=== PATIENT | female | born 1955 | race Caucasian/White ===

== ENCOUNTER 2020-03-05 17:43 | Inpatient (IN) | payer MEDICARE ==
[2020-03-05 21:44] VITALS: BMI 25.4
[2020-03-05] MEDS ORDERED: traMADol HCl 50 MG TAB PO PRN (22:43)
[2020-03-06] MEDS: Piperacillin/Tazobactam 3.375 GM in Sodium Chloride 0.9% 100 ML IVPB SCH ×5 (00:07→23:13)
[2020-03-06] MEDS: Sodium Chloride 0.9% 1,000 ML IV SCH ×4 (00:08→22:31)
[2020-03-06 00:09] LABS: Anion Gap 21 mmol/L (10-20); BUN (Urea Nitrogen) 40 mg/dL (9.8-20.1); Calc. Creatinine Clearance 34 mL/min (70-130); Carbon Dioxide 13 mmol/L (23-31); Chloride 107 mmol/L (98-107); Estimated GFR-MDRD 29; Glucose 124 mg/dL (80-115); Potassium 5.9 mmol/L (3.5-5.1); Sodium 135 mmol/L (136-145)
--- NOTE | 2020-03-06 01:24 | HP ---
REASON FOR ADMISSION: Bladder spasm. HISTORY OF PRESENT ILLNESS: This is a 64-year-old female patient, who is known to have MS and has a suprapubic catheter. She presents to the emergency room reporting that there is change in color of her urine that became darker and has been experiencing spasms around her [place] with leakage around the [place]. She did report one episode of vomiting the night before her presentation. She denies fevers. Denies chills. She has been drinking a lot of water, but feels tired. In the ER, she was found to have acute renal insufficiency and high potassium level. She was sent to us for further evaluation and treatment. The patient is currently on telemetry, appears to be comfortable and in no acute distress. PAST MEDICAL HISTORY: 1. MS. 2. Suprapubic catheter inserted 16 years ago. 3. Frequent UTIs, usually gets treated with Levaquin, but thinks that Levaquin is not working anymore. 4. Chronic diarrhea status post recent colostomy insertion in November 05 at [facility]. 5. Cholecystectomy. 6. Hysterectomy. 7. High blood pressure. 8. Status post gastric banding. SOCIAL HISTORY: She does not smoke. Does not drink alcohol. ALLERGIES: TO CLINDAMYCIN AND ROCEPHIN THAT CAUSES HER ANGIOEDEMA. FAMILY HISTORY: Negative for heart disease. REVIEW OF SYSTEMS: All systems reviewed except the above mentioned, found to be negative. PHYSICAL EXAMINATION: GENERAL: She is awake, alert, oriented, does not appear in distress. VITAL SIGNS: Her blood pressure is 95/54, heart rate of 120, saturating 96% on room air, temperature is 97.3. HEENT: Head is nontraumatic, normocephalic. Pupils equal, reactive. Extraocular movements are intact. Nonicteric sclerae. Well injected conjunctivae. Oral mucosa normal. Nasal mucosa normal. NECK: Supple. No adenopathy. No murmur. Thyroid is not palpable. Trachea is midline. No supraclavicular lymphadenopathy. HEART: S1 and S2 regular. No murmur. No gallops. No friction rubs. No displacement of PMI. LUNGS: Clear to auscultation bilaterally. No wheezes, rhonchi, no crackles. Bowel sounds are positive. Nontender abdomen. Examination of the point of entry of the suprapubic catheter appears to be clean. No discharge. Her colostomy bag appears to be in place and the point of entry appears to be clean. No lower extremity edema. No cyanosis. NEURO: Cranial nerves appears to be intact. She moves her upper extremities, but she does not move her lower extremities due to her MS. LABORATORY DATA: Blood work shows WBC of 29, hemoglobin of 14, platelets of 559, neutrophil count 55%, bands 27%. Her sodium is 139, potassium 5.9, bicarb of 18, creatinine 1.78, alkaline phosphatase 298. CK 25. Urinalysis shows evidence of infection. ASSESSMENT AND PLAN: This is a 64-year-old female patient presenting with change in color of her urine. She does have suprapubic catheter. She does report spasm around her suprapubic catheter and some leakage of urine. ID: The patient does have urinary tract infection and she has sepsis. She had frequent urinary tract infections in the past. I suspect that she has some resistance to antibiotics. She did receive Levaquin and vancomycin at the emergency room, but she says that lately Cipro has not been working well for her and for that reason, I would start her on IV Zosyn for now until we get the results of her urine culture and sensitivity. Her blood pressure is on the low side. I suspect due to dehydration and her sepsis. We will start her on IV fluids and monitor. Renal system, electrolytes: The patient has acute renal insufficiency and hyperkalemia. She did receive IV fluids in the ER. We will continue with IV fluids here and will recheck her electrolytes tonight and adjust our management accordingly. We will also do a renal ultrasound in the morning. For deep venous thrombosis prophylaxis, she will be on heparin subcutaneously. I did discuss with her the code status and she wishes to be a do not resuscitate. Job ID: [id number]
[2020-03-06] MEDS ORDERED: Calcium Carbonate 500 MG ChewTAB PO SCH (03:15)
[2020-03-06 04:43] LABS: Lactic Acid 3.3 mmol/L (0.5-2.2)
[2020-03-06 04:52] LABS: Anion Gap 18 mmol/L (10-20); BUN (Urea Nitrogen) 44 mg/dL (9.8-20.1); Calc. Creatinine Clearance 35 mL/min (70-130); Calcium 7.2 mg/dL (7.8-10.44); Carbon Dioxide 12 mmol/L (23-31); Chloride 109 mmol/L (98-107); Estimated GFR-MDRD 30; Glucose 134 mg/dL (80-115); Potassium 5.1 mmol/L (3.5-5.1); Sodium 134 mmol/L (136-145)
[2020-03-06 04:55] LABS: Band 64 % (5-11); Hemoglobin 11.3 g/dL (12.0-16.0); Hypochromia SLIGHT = 6-15 cells (100X) (0-5/hpf); Lymphocytes 6 % (21-51); MDiff Complete? YES; Mean Corpuscular HGB CONC 31.2 g/dL (32.0-36.0); Mean Corpuscular Hemoglobin 27.7 pg (27.0-31.0); Mean Corpuscular Volume 88.6 fL (78.0-98.0); Mean Platelet Volume 7.1 fL (7.4-10.4); Metamyelocyte 6 % (0-0); Monocytes 6 % (0-10); Neutrophil 18 % (42-75); Platelet Count 463 thou/uL (130-400); Platelet Morphology Comment Appears Adequate; RBC Distribution Width 15.4 % (11.5-14.5); Red Blood Cell (RBC) Count 4.07 mill/uL (4.20-5.40); Reflex for Review?? YES; White Blood Cell (WBC) Count 23.5 thou/uL (4.8-10.8)
[2020-03-06] MEDS ORDERED: Sodium Chloride 0.9% 500 ML IV SCH ×2 (06:45→07:30)
[2020-03-06] MEDS ORDERED: Rizatriptan Benzoate 10 MG MLT TAB PO PRN (08:01)
[2020-03-06] MEDS: Heparin 5,000 UNITS/ML VIAL SC SCH ×3 (08:15→21:15)
[2020-03-06] MEDS: Cholecalciferol 1,000 UNITS (25 MCG) TAB PO SCH (08:15)
[2020-03-06] MEDS: Docusate 100 MG CAP PO SCH (08:15)
[2020-03-06] MEDS: Ferrous Sulfate 325 MG TAB PO SCH (08:15)
[2020-03-06] MEDS: Ondansetron PF 4 MG/2 ML Vial IVP PRN ×2 (08:15→13:02)
--- NOTE | 2020-03-06 08:15 | ULT ---
ULTRASOUND RETROPERITONEUM COMPLETE: (RENAL) DATE: 03/06/2020 1:55 AM HISTORY: 64-year-old female with renal insufficiency FINDINGS: Right kidney: 9.5 x 5 x 5 cm. Left kidney: 10.5 x 4.5 x 4.5 cm. No hydronephrosis bilaterally. Several bilateral renal cysts. Largest cyst on right is partially exophytic from mid pole measuring approximately 4.5 cm. Largest cyst on left is at mid pole approximately 2.5 cm. Multiple hyperechoic foci in bilateral kidneys in central portions several millimeters in size each p ossibly with shadowing. Renal parenchymal thinning bilaterally. [place] catheter within empty bladder. IMPRESSION: 1) no hydronephrosis. 2) probable bilateral nephrolithiasis. Recommend confirmation with noncontrast CT abdomen and pelvis. 3) bilateral renal cysts.
[2020-03-06] MEDS ORDERED: Non-Formulary Item 1 EACH (Iron [Iron] 18 MG) PO SCH (09:00)
[2020-03-06] MEDS ORDERED: Non-Formulary Item 1 EACH (Cholecalciferol (Vitamin D3) [Vitamin D] 5,000 UNIT) PO SCH (09:00)
[2020-03-06] MEDS ORDERED: Polyethylene Glycol 3350 17 GM Packet PO PRN (10:45)
--- NOTE | 2020-03-06 14:28 | PDOC.HOSPP ---
- Subjective Encounter Date: 03/06/20 Encounter Time: 08:00 Subjective: overnight, hypotensive, spasms mostly lower extremities. This morning, complains of persistent spasms. - Objective Vital Signs & Weight: Vital Signs (12 hours) Temp Pulse Resp BP Pulse Ox 03/06/20 12:07 98.3 F 113 H 18 90/57 L 96 03/06/20 08:00 97.6 F 114 H 18 95/62 93 L 03/06/20 04:28 115 H 18 101/53 L 96 03/06/20 03:50 117 H 98/54 L 03/06/20 03:17 97.5 F L 113 H 18 148/56 H 96 Weight Weight 148 lb 9 oz Result Diagrams: 03/06/20 04:16 03/06/20 04:15 Hospitalist ROS - Review of Systems Constitutional: denies: fever, chills, sweats Respiratory: denies: cough, dry, shortness of breath Cardiovascular: denies: chest pain, palpitations, orthopnea Gastrointestinal: denies: nausea, vomiting, abdominal pain, diarrhea Genitourinary: reports: other (dark urine) - Medication Medications: Active Medications Generic Name Dose Route Start Last Admin Trade Name Freq PRN Reason Stop Dose Admin Cholecalciferol 5,000 mcg 03/06/20 09:00 03/06/20 08:15 Vitamin D3 PO 5,000 mcg DAILY ANTONIO Administration Docusate Sodium 100 mg 03/06/20 09:00 03/06/20 08:15 Colace PO 100 mg DAILY ANTONIO Administration Ferrous Sulfate 325 mg 03/06/20 09:00 03/06/20 08:15 Feosol PO 325 mg DAILY ANTONIO Administration Heparin Sodium (Porcine) 5,000 units 03/06/20 09:00 03/06/20 08:15 Heparin SC 5,000 units TID ANTONIO Administration Hyoscyamine Sulfate 0.125 mg 03/05/20 22:42 03/06/20 13:02 Levsin PO 0.125 mg Q4H PRN Administration Bladder Spasms Sodium Chloride 1,000 mls @ 125 mls/hr 03/05/20 23:30 03/06/20 12:03 Normal Saline 0.9% IV 1,000 mls .Q8H ANTONIO Administration Piperacillin Sod/Tazobactam 100 mls @ 200 mls/hr 03/05/20 23:59 03/06/20 12: 00 Sod 3.375 gm/ Sodium Chloride IVPB 100 mls Q6HR ANTONIO Administration Ondansetron HCl 4 mg 03/06/20 08:01 03/06/20 13:02 Zofran IVP 4 mg Q6H PRN Administration Nausea/Vomiting Sodium Chloride 10 ml 03/06/20 09:00 03/06/20 08:16 Flush - Normal Saline IVF 10 ml Q12HR ANTONIO Administration - Exam General Appearance: awake alert General - other findings: having spasms in lower extremities during the encounter Neck: no JVD Heart: no murmur, no gallops, no rubs Heart - other findings: regular rhythm, tachycardic Gastrointestinal: soft, non-tender, non-distended, normal bowel sounds Gastrointestinal - other findings: colostomy bag appears functional and intact; suprapubic catheter in place Psychiatric: normal affect, normal behavior, A&O x 3 Hosp A/P - Plan #UTI -UA contaminated; patient claims only had darker urine -repeat UA -continue ABx #hypotension -per patient, has history of borderline blood pressure
[2020-03-06] MEDS ORDERED: Sodium Chloride 0.9% 1,000 ML IV SCH (14:30)
[2020-03-06 16:32] LABS: Bilirubin Negative (Negative); Blood, Urine Negative (Negative); Clarity Clear (Clear); Glucose, Urine (Dipstick) Normal (Negative); Ketone, Urine Negative (Negative); Leukocyte 500 Leu/uL (Negative); Nitrite Negative (Negative); Protein, Urine (Dipstick) 10 mg/dL (Neg-Trace); RBC/HPF 0-3 HPF (0-3); Specific Gravity, Urine 1.021 (1.002-1.036); Squamous Epithelial 0-3 HPF (0-3); Urobilinogen Normal mg/dL (Less than 2)
[2020-03-06 16:43] LABS: Bacteria/HPF Rare-Few HPF (None Seen)
[2020-03-06 16:44] LABS: Urine Culture Reflex Yes Yes
[2020-03-06] MEDS ORDERED: FINGOLIMOD HCL 0.5 MG PO SCH (21:00)
[2020-03-06] MEDS ORDERED: [UNRECOGNIZED DRUG - OTHER] PO SCH (21:00)
[2020-03-06] MEDS: DULoxetine 60 MG CAP PO SCH (21:10)
[2020-03-06] MEDS ORDERED: Lidocaine 2% Viscous Solution 10 ML, Aluminum & Magnesium Hydroxide 30 ML SSW SCH (22:00)
[2020-03-07 05:10] LABS: Band 29 % (5-11); Elliptocytes SLIGHT = 2-5 cells (100X) (0-1/hpf); Hemoglobin 10.6 g/dL (12.0-16.0); Hypochromia SLIGHT = 6-15 cells (100X) (0-5/hpf); Lymphocytes 6 % (21-51); MDiff Complete? YES; Mean Corpuscular HGB CONC 31.2 g/dL (32.0-36.0); Mean Corpuscular Hemoglobin 26.9 pg (27.0-31.0); Mean Corpuscular Volume 86.3 fL (78.0-98.0); Mean Platelet Volume 7.5 fL (7.4-10.4); Metamyelocyte 5 % (0-0); Monocytes 15 % (0-10); Neutrophil 45 % (42-75); Platelet Count 235 thou/uL (130-400); Platelet Morphology Comment Appears Adequate; RBC Distribution Width 15.3 % (11.5-14.5); Red Blood Cell (RBC) Count 3.95 mill/uL (4.20-5.40); Vacuoles MODERATE; White Blood Cell (WBC) Count 12.7 thou/uL (4.8-10.8)
[2020-03-07 05:17] LABS: Anion Gap 16 mmol/L (10-20); BUN (Urea Nitrogen) 42 mg/dL (9.8-20.1); Calc. Creatinine Clearance 44 mL/min (70-130); Carbon Dioxide 14 mmol/L (23-31); Chloride 113 mmol/L (98-107); Estimated GFR-MDRD 37; Glucose 100 mg/dL (80-115); Magnesium 1.9 mg/dL (1.6-2.6); Potassium 4.5 mmol/L (3.5-5.1); Sodium 138 mmol/L (136-145)
[2020-03-07] MEDS: Piperacillin/Tazobactam 3.375 GM in Sodium Chloride 0.9% 100 ML IVPB SCH ×4 (05:38→23:52)
[2020-03-07] MEDS ORDERED: Lidocaine 2% Viscous Solution 10 ML, Aluminum & Magnesium Hydroxide 30 ML SSW SCH (06:00)
[2020-03-07] MEDS: Heparin 5,000 UNITS/ML VIAL SC SCH ×3 (08:03→20:44)
[2020-03-07] MEDS: Cholecalciferol 1,000 UNITS (25 MCG) TAB PO SCH (08:03)
[2020-03-07] MEDS: Ferrous Sulfate 325 MG TAB PO SCH (08:03)
[2020-03-07] MEDS: Docusate 100 MG CAP PO SCH (08:03)
[2020-03-07] MEDS: Sodium Chloride 0.9% 1,000 ML IV SCH ×3 (09:34→23:53)
[2020-03-07] MEDS ORDERED: Aluminum & Magnesium Hydroxide 60 ML, Lidocaine 2% Viscous Solution 30 ML, diphenhydrAM... SSW PRN (10:21)
--- NOTE | 2020-03-07 17:01 | PDOC.HOSPP ---
- Subjective Encounter Date: 03/07/20 Encounter Time: 08:00 Subjective: overnight, 11 beats of MAT, asymptomatic. This morning, feeling better overall , suprapubic fullness resolved, and no cramping. SKYLER improving, Urine culture negative so far, may discharge after urine culture finalizes. - Objective Vital Signs & Weight: Vital Signs (12 hours) Temp Pulse Resp BP Pulse Ox 03/07/20 15:00 97.6 F 97 18 140/70 93 L 03/07/20 12:20 97.3 F L 94 18 135/71 95 03/07/20 08:00 97.6 F 102 H 18 139/77 93 L Weight Weight 156 lb 4.924 oz I&O: 03/06/20 03/07/20 03/08/20 06:59 06:59 06:59 Intake Total 1610 Output Total 550 Balance 1060 Result Diagrams: 03/07/20 04:47 03/07/20 04:47 Hospitalist ROS - Review of Systems Constitutional: denies: fever, chills Respiratory: denies: cough, dry, shortness of breath Cardiovascular: denies: chest pain, palpitations, orthopnea Gastrointestinal: denies: nausea, vomiting, abdominal pain - Medication Medications: Active Medications Generic Name Dose Route Start Last Admin Trade Name Freq PRN Reason Stop Dose Admin Cholecalciferol 5,000 mcg 03/06/20 09:00 03/07/20 08:03 Vitamin D3 PO 5,000 mcg DAILY ANTONIO Administration Docusate Sodium 100 mg 03/06/20 09:00 03/07/20 08:03 Colace PO 100 mg DAILY ANTONIO Administration Duloxetine HCl 120 mg 03/06/20 21:00 03/06/20 21:10 Cymbalta PO 120 mg HS ANTONIO Administration Ferrous Sulfate 325 mg 03/06/20 09:00 03/07/20 08:03 Feosol PO 325 mg DAILY ANTONIO Administration Heparin Sodium (Porcine) 5,000 units 03/06/20 09:00 03/07/20 15:01 Heparin SC 5,000 units TID ANTONIO Administration Hyoscyamine Sulfate 0.125 mg 03/05/20 22:42 03/06/20 13:02 Levsin PO 0.125 mg Q4H PRN Administration Bladder Spasms Sodium Chloride 1,000 mls @ 125 mls/hr 03/05/20 23:30 03/07/20 09:34 Normal Saline 0.9% IV 1,000 mls .Q8H ANTONIO Administration Piperacillin Sod/Tazobactam 100 mls @ 200 mls/hr 03/05/20 23:59 03/07/20 12: 23 Sod 3.375 gm/ Sodium Chloride IVPB 100 mls Q6HR ANTONIO Administration Ondansetron HCl 4 mg 03/06/20 08:01 03/06/20 13:02 Zofran IVP 4 mg Q6H PRN Administration Nausea/Vomiting Sodium Chloride 10 ml 03/06/20 09:00 03/07/20 09:35 Flush - Normal Saline IVF Not Given Q12HR ANTONIO Tramadol HCl 50 mg 03/05/20 22:43 03/06/20 14:32 Ultram PO 50 mg Q4H PRN Administration Pain - Exam General Appearance: NAD, awake alert Neck: no JVD Heart: RRR, no murmur, no gallops, no rubs Respiratory: CTAB, no wheezes Gastrointestinal: soft, non-tender, non-distended Psychiatric: normal affect, normal behavior, A&O x 3 Hosp A/P - Plan #uncomplicated UTI -first UA contaminated; repeat UA shows pyuria, UCx NTD -continue ABx pending culture finalization -main symptom for which patient came was dark urine; prior to DC, educate patient regarding proper fluid intake #likely SKYLER over CKD -improving; may be at baseline (not enough data) #hypotension -per patient, has history of borderline blood pressure -currently HD stable DNAR ELOS: 1 night
[2020-03-07] MEDS: DULoxetine 60 MG CAP PO SCH (20:44)
[2020-03-08 05:04] LABS: Anion Gap 13 mmol/L (10-20); BUN (Urea Nitrogen) 29 mg/dL (9.8-20.1); Calc. Creatinine Clearance 58 mL/min (70-130); Calcium 7.5 mg/dL (7.8-10.44); Carbon Dioxide 15 mmol/L (23-31); Chloride 116 mmol/L (98-107); Estimated GFR-MDRD 50; Glucose 90 mg/dL (80-115); Potassium 4.7 mmol/L (3.5-5.1); Sodium 139 mmol/L (136-145)
[2020-03-08] MEDS: Piperacillin/Tazobactam 3.375 GM in Sodium Chloride 0.9% 100 ML IVPB SCH ×3 (06:10→17:53)
[2020-03-08] MEDS ORDERED: Sodium Bicarbonate 150 MEQ in Dextrose 5% in Water 1,000 ML IV SCH (07:30)
[2020-03-08] MEDS: Docusate 100 MG CAP PO SCH (09:57)
[2020-03-08] MEDS: Cholecalciferol 1,000 UNITS (25 MCG) TAB PO SCH (09:58)
[2020-03-08] MEDS: Ferrous Sulfate 325 MG TAB PO SCH (09:59)
[2020-03-08] MEDS: Sodium Bicarbonate Tab 325 MG TAB PO SCH ×2 (09:59→21:05)
[2020-03-08] MEDS: Heparin 5,000 UNITS/ML VIAL SC SCH ×3 (09:59→21:07)
--- NOTE | 2020-03-08 10:59 | CT ---
CT ABDOMEN AND PELVIS WITHOUT IV CONTRAST: HISTORY: Renal cyst. Possible stones. Possible adult polycystic kidney disease. FINDINGS: Moderate bilateral pleural effusions and some right and left lower lobe compressive atelectatic leonard es posteriorly. Status post cholecystectomy. The liver appears unremarkable. The pancreas and spleen appear unremarkable. Probable small hiatal hernia. The adrenal glands are unremarkable. Small kidneys bilaterally without renal hydronephrosis. Two calcification foci in the right kidney, adjacent to on e of these cysts. These could conceivably represent renal calculi or could represent some calcificati on in the wall of the cyst. This cyst approximates 5.4 cm. No evidence for obstructing calculus. S everal left renal cysts. Distal left colon colostomy, just to the right of midline, near the level of the umbilicus. Mild nonspecific fat stranding around the left colon and in the left colonic gutter w ith possible associated colonic wall thickening. This is difficult to evaluate without IV or oral con trast. There is minimal free fluid in the pelvis. Suprapubic catheter in place. There are some scatte red calcific changes within the urinary bladder, either free within the bladder and representing calc ific debris or possibly within the wall of the bladder. Subcutaneous fat stranding, evidence for anas arca. No CT evidence for acute appendicitis. IMPRESSION: 1. Bilateral pleural effusions and bilateral compressive atelectatic changes. 2. Bilateral renal cysts. 3. Two calcific foci in the right kidney, adjacent to the right renal cyst, possibly representing non obstructing renal calculi versus some calcification within the wall. No evidence for liver or pancrea tic cysts. 4. Questionable mild left colon and sigmoid colon wall thickening with some minimal fat stranding, no nspecific, in the left pericolonic gutter region. This could conceivably represent some type of nonsp ecific colitis but is less than optimally imaged because of lack of intravenous and oral contrast. Mi nimal free intraperitoneal fluid within the pelvis. Some calcific foci within the urinary bladder or bladder wall. Other findings as above. POS: LUIS EDI
--- NOTE | 2020-03-08 13:59 | PDOC.HOSPP ---
- Subjective Encounter Date: 03/08/20 Encounter Time: 15:30 Subjective: Patient seen and examined for UTI. Feeling better. No new complaints. No overnight events - Objective Vital Signs & Weight: Vital Signs (12 hours) Temp Pulse Resp BP Pulse Ox 03/08/20 11:40 98.1 F 93 16 147/78 H 94 L 03/08/20 07:40 98.2 F 88 16 152/73 H 94 L 03/08/20 04:00 98.3 F 91 18 162/82 H 94 L Weight Weight 156 lb 4.924 oz I&O: 03/07/20 03/08/20 03/09/20 06:59 06:59 06:59 Intake Total 1610 3840 Output Total 550 1200 Balance 1060 2640 Result Diagrams: 03/09/20 04:16 03/09/20 04:16 Additional Labs: Laboratory Tests 03/08/20 11:10 25-OH Vitamin D Total 22.4 L EKG Reviewed by me: Yes (Tele SR) Hospitalist ROS - Review of Systems Respiratory: denies: cough, dry, shortness of breath, hemoptysis, SOB with excertion, pleuritic pain, sputum, wheezing, other Cardiovascular: denies: chest pain, palpitations, orthopnea, paroxysmal noc. dyspnea, edema, light headedness, other - Medication Medications: Active Medications Generic Name Dose Route Start Last Admin Trade Name Freq PRN Reason Stop Dose Admin Cholecalciferol 5,000 mcg 03/06/20 09:00 03/08/20 09:58 Vitamin D3 PO 5,000 units DAILY ANTONIO Administration Docusate Sodium 100 mg 03/06/20 09:00 03/08/20 09:57 Colace PO Not Given DAILY ANTONIO Duloxetine HCl 120 mg 03/06/20 21:00 03/07/20 20:44 Cymbalta PO 120 mg HS ANTONIO Administration Ferrous Sulfate 325 mg 03/06/20 09:00 03/08/20 09:59 Feosol PO 325 mg DAILY ANTONIO Administration Heparin Sodium (Porcine) 5,000 units 03/06/20 09:00 03/08/20 09:59 Heparin SC 5,000 units TID ANTONIO Administration Hyoscyamine Sulfate 0.125 mg 03/05/20 22:42 03/06/20 13:02 Levsin PO 0.125 mg Q4H PRN Administration Bladder Spasms Piperacillin Sod/Tazobactam 100 mls @ 200 mls/hr 03/05/20 23:59 03/08/20 11: 36 Sod 3.375 gm/ Sodium Chloride IVPB 100 mls Q6HR ANTONIO Administration Sodium Bicarbonate 150 meq/ 1,150 mls @ 100 mls/hr 03/08/20 07:30 03/08/20 09 :59 Dextrose/Water IV 03/08/20 18:59 1,150 mls ONE ANTONIO Administration Ondansetron HCl 4 mg 03/06/20 08:01 03/06/20 13:02 Zofran IVP 4 mg Q6H PRN Administration Nausea/Vomiting Sodium Bicarbonate 650 mg 03/08/20 09:00 03/08/20 09:59 Bicarbonate, Sodium PO 650 mg BID ANTONIO Administration Sodium Chloride 10 ml 03/06/20 09:00 03/08/20 09:59 Flush - Normal Saline IVF 10 ml Q12HR ANTONIO Administration Tramadol HCl 50 mg 03/05/20 22:43 03/06/20 14:32 Ultram PO 50 mg Q4H PRN Administration Pain - Exam General Appearance: NAD Heart: RRR, no gallops Respiratory: no wheezes, no ronchi Gastrointestinal: non-tender, non-distended, normal bowel sounds Extremities: no cyanosis Hosp A/P - Plan DVT proph w/SCDs Sepsis due to catheter associated UTI - POA Diarrhea - r/o infectious etiology SKYLER on CKD 3 h/o MS B/L Renal cyst Vit D def HTN Hyponatremia PLAN: Add stool w/u Cont IV Zosyn Urine cultures - negative Cont IVF with sodium bicarb AM labs Cont other meds as above
[2020-03-08] MEDS ORDERED: Ergocalciferol 1.25 MG(50,000 UNITS) CAP PO SCH (15:00)
--- NOTE | 2020-03-08 15:48 | CON ---
DATE OF CONSULTATION: 03/08/2020 SERVICE: Nephrology. REASON FOR CONSULTATION: Multiple renal cysts and acute kidney injury. REQUESTING PHYSICIAN: Kenneth Rojas MD. HISTORY OF PRESENT ILLNESS: A 64-year-old female with known history of MS associated with neurogenic bladder status post chronic suprapubic catheter with treat recurrent urinary tract infection, admitted on March 05, due to bladder spasm and change in color of urine associated with generalized weakness. The patient also was found to have acute kidney injury, which is improving with IV fluid therapy. The patient also was found to have sepsis, which was also thought to be due to urinary tract infection. Further evaluation with ultrasound showed multiple renal cysts, hence Nephrology consults. The patient denied fever, abdominal pain. She reports feeling better. PAST MEDICAL HISTORY: 1. Multiple sclerosis. 2. Neurogenic bladder. 3. Paraparesis. 4. Hypertension. PAST SURGICAL HISTORY: 1. Gastric banding. 2. Hysterectomy. 3. Cholecystectomy. 4. Colostomy creation. 5. Suprapubic catheter creation. FAMILY HISTORY: Negative for heart disease. SOCIAL HISTORY: The patient lives with spouse. Spouse is the primary caregiver. The patient is currently bed-bound. There is no history of smoking or alcohol use. ALLERGIES: CLINDAMYCIN AND ROCEPHIN. REPORTEDLY HAD ANGIOEDEMA. MEDICATIONS: Prior to hospital medications are as follows. 1. Ondansetron 4 mg p.o. q.6 hours p.r.n. 2. Cholecalciferol 5000 units p.o. daily. 3. Dulcolax 100 mg p.o. daily. 4. Cymbalta 120 mg p.o. daily at bedtime. 5. Fingolimod (Gilenya) 0.5 mg capsule daily at bedtime. 6. Hydroxyzine 25 mg p.o. t.i.d. 7. Ibuprofen 800 mg p.o. t.i.d. p.r.n. 8. Iron tablet p.o. daily. 9. Lisinopril 10 mg p.o. b.i.d. 10. Oxybutynin 5 mg p.o. daily. 11. Rizatriptan 10 mg p.o. b.i.d. p.r.n. REVIEW OF SYSTEMS: Twelve-point review of system performed was negative other than pertinent positives and negatives included in the history of present illness. PHYSICAL EXAMINATION: VITAL SIGNS: Temperature 98.2, pulse 88, respiratory rate 16, SpO2 of 94% on room air, blood pressure 152/73. I and O in the last 24 hours showed total intake of 3840 with total output of 1200. GENERAL: Comfortable female, in no obvious distress. Afebrile. Anicteric. Acyanotic. HEENT: Normocephalic, atraumatic. Oral mucosa is moist. CARDIOVASCULAR: Regular rhythm and rate with normal heart sounds 1 and 2. RESPIRATORY: Fair air entry bilaterally with few transmitted breath sounds, but no obvious crackle or rhonchi or use of accessory muscles. GI: Full, soft, nondistended. Bowel sound is hypoactive. Suprapubic catheter and right upper quadrant colostomy noted. EXTREMITIES: Mild atrophy of lower extremities noted. Otherwise, extremities looked grossly normal with no edema or erythema. SHEATHER: Conscious and alert and oriented x3 with appropriate mental status. Cranial nerves 2 through 12 are grossly intact. The patient moves upper extremities appropriately. Power is decreased in the lower extremities to 0 to 1-2/5. DIAGNOSTIC DATA: CBC on presentation on March 06 showed WBC count of 23.5, hemoglobin of 11.3, MCV of 88.6, platelet of 463. CBC yesterday showed WBC count of 12.7, hemoglobin of 10.6. Chemistry on presentation on March 05, showed sodium 135, potassium 5.9, chloride 107, CO2 of 13, BUN 40, creatinine 1.76, glucose 124, calcium 8.0. Chemistry earlier today showed sodium 139, potassium 4.7, chloride 116, CO2 of 15, BUN 29, creatinine 1.09, glucose 90, calcium 7.5. Urinalysis on March 06 showed yellow clear urine with pH of 5.0, specific gravity of 1.021, negative protein, ketone, blood, nitrite, bilirubin. Leukocyte esterase is positive. Microscopy showed 0 to 3 rbc and 7 to 10 wbc with rare few bacteria. Urine culture so far is no growth. Renal ultrasound performed on March 06 showed no hydronephrosis. Probable bilateral nephrolithiasis is noted as well as bilateral renal cysts. Right kidney measures 9.5 x 5 x 5, while left kidney measures 10.5 x 4.5 x 4.5. ASSESSMENT: 1. Metabolic acidosis: Initially, due to high anion gap related to sepsis from anion gap and hyperchloremic due to normal saline therapy. 2. Acute kidney injury, improved. Creatinine is closer to baseline. 3. Hyperkalemia: Resolved. 4. Bilateral renal cysts: Given the size of both kidneys and preserved renal function, this most likely is due to simple cysts. Adult polycystic kidney disease is a possibility. The patient denied family history of polycystic kidney disease. 5. Suspected nephrolithiasis. 6. Urinary tract infection on treatment. 7. Urogenic bladder status post suprapubic catheter with recurrent urinary tract infection. 8. Sepsis: Due to urinary tract infection. 9. Hypertension: Control is suboptimal. The patient had hypo hypotension on presentation, which has improved significantly. Currently, off antihypertensives. 10. Hypocalcemia: The patient is on vitamin D supplementation at home. 11. Anemia. PLAN: 1. We will substitute normal saline with sodium bicarbonate for metabolic acidosis. 2. We will also get vitamin D level with a view starting supplementation. 3. We will also get CT scan of the abdomen and pelvis without contrast for further evaluation of the kidney structure and size and to rule in or rule out nephrolithiasis. 4. We will recheck renal function in the morning. 5. Further treatment to follow depending on review of other diagnostic tests and hospital course. Many thanks for involving us in the care of this patient. We will follow along with you. Job ID: [id number]
[2020-03-08] MEDS: DULoxetine 60 MG CAP PO SCH (21:05)
[2020-03-08] MEDS: metroNIDAZOLE 500 MG in Premix Bag 1 BAG IVPB SCH (21:06)
[2020-03-08] MEDS: Saccharomyces boulardii 250 MG CAP PO SCH (21:06)
[2020-03-09] MEDS: Piperacillin/Tazobactam 3.375 GM in Sodium Chloride 0.9% 100 ML IVPB SCH ×5 (00:15→23:22)
[2020-03-09 05:26] LABS: ALT (SGPT) 10 U/L (8-55); AST (SGOT) 11 U/L (5-34); Albumin 2.3 g/dL (3.4-4.8); Alkaline Phosphatase 125 U/L (40-110); Anion Gap 9 mmol/L (10-20); BUN (Urea Nitrogen) 20 mg/dL (9.8-20.1); Bilirubin, Total 0.4 mg/dL (0.2-1.2); Calc. Creatinine Clearance 63 mL/min (70-130); Calcium 7.9 mg/dL (7.8-10.44); Carbon Dioxide 24 mmol/L (23-31); Chloride 112 mmol/L (98-107); Estimated GFR-MDRD 56; Globulin 2.6 g/dL (2.4-3.5); Glucose 103 mg/dL (80-115); Magnesium 1.8 mg/dL (1.6-2.6); Phosphorus 2.3 mg/dL (2.3-4.7); Potassium 3.5 mmol/L (3.5-5.1); Protein, Total 4.9 g/dL (6.0-8.3); Sodium 141 mmol/L (136-145)
[2020-03-09 05:39] LABS: Band 7 % (5-11); Eosinophils 6 % (0-10); Lymphocytes 24 % (21-51); MDiff Complete? YES; Mean Corpuscular Hemoglobin 27.3 pg (27.0-31.0); Mean Corpuscular Volume 85.3 fL (78.0-98.0); Mean Platelet Volume 7.2 fL (7.4-10.4); Metamyelocyte 1 % (0-0); Monocytes 4 % (0-10); Myelocyte 1 % (0-0); Neutrophil 57 % (42-75); Platelet Count 357 thou/uL (130-400); Platelet Morphology Comment Appears Adequate; RBC Distribution Width 15.2 % (11.5-14.5); Red Blood Cell (RBC) Count 3.67 mill/uL (4.20-5.40); White Blood Cell (WBC) Count 6.3 thou/uL (4.8-10.8)
[2020-03-09] MEDS: metroNIDAZOLE 500 MG in Premix Bag 1 BAG IVPB SCH ×3 (05:55→21:08)
[2020-03-09] MEDS: Calcium Carbonate 600 MG + Vit D TAB PO SCH (08:12)
[2020-03-09] MEDS: Heparin 5,000 UNITS/ML VIAL SC SCH ×3 (08:12→20:54)
[2020-03-09] MEDS: Sodium Bicarbonate Tab 325 MG TAB PO SCH ×2 (08:12→20:53)
[2020-03-09] MEDS: Saccharomyces boulardii 250 MG CAP PO SCH ×2 (08:12→20:53)
[2020-03-09] MEDS: Ferrous Sulfate 325 MG TAB PO SCH (08:12)
[2020-03-09] MEDS: Docusate 100 MG CAP PO SCH (08:12)
--- NOTE | 2020-03-09 15:50 | PRG ---
DATE OF SERVICE: 03/09/2020 SERVICE: Nephrology. SUBJECTIVE: female seen in followup for acute renal failure and multiple renal cysts. The patient complains of intermittent bladder spasm and urinary leak from the urethra despite having suprapubic catheter. Otherwise, reports feeling better. Denied fever, nausea, or vomiting. OBJECTIVE: VITAL SIGNS: Temperature 97.8, pulse 77, respiratory rate 14, SpO2 of 94% on room air, and blood pressure is 138/64. GENERAL: Comfortable female, in no obvious distress. Afebrile. Anicteric. HEENT: Normocephalic, atraumatic. CARDIOVASCULAR: Regular rhythm and rate with normal heart sounds 1 and 2. RESPIRATORY: Fair air entry bilaterally with no obvious crackle or rhonchi or use of accessory muscles. GI: Abdomen is full, soft, nondistended. Right upper quadrant colostomy as well as suprapubic catheter noted. MUSCULOSKELETAL: Grossly normal looking and atraumatic. No obvious edema appreciated. muscular wasting or atrophy of lower extremities noted. BUTCHER ALL ROUND: Conscious, alert, oriented x3 with appropriate mental status. Paraparesis noted with power of 2/5 to 3/5 on the right and 1 to 2 on the left lower extremity. DIAGNOSTIC DATA: CBC showed WBC count of 6.3, hemoglobin of 10.0, and platelets of 357. Chemistry showed sodium 141, potassium 3.5, chloride 112, CO2 of 24, BUN 20, creatinine 1.0, glucose 103, calcium 7.9, magnesium 1.8, phosphorus 2.3, total protein 4.9, and albumin 2.3. Vitamin D is 22.4. ASSESSMENT: 1. Acute kidney injury due to hemodynamic factors. Resolved. Creatinine is down to 1.0. 2. Metabolic acidosis. Improving with alkali therapy. 3. Bilateral multiple cysts: Most likely simple cyst related to age and recurrent infection/obstruction. Close followup was recommended. 4. Bilateral nephrolithiasis. With no obstruction. 5. Multiple sclerosis, on treatment. 6. Hypertension, control is adequate. PLAN: 1. We will discontinue alkali therapy. No further IV fluid therapy was needed with resolution of acute kidney injury. Avoid nephrotoxic agent including NSAIDs. 2. We will recommend close followup with repeat imaging of the bilateral renal cysts. Nephrology will sign off at this time with resolution of renal function. Job ID: [id number]
--- NOTE | 2020-03-09 18:21 | PDOC.HOSPP ---
- Subjective Encounter Date: 03/09/20 Encounter Time: 14:00 Subjective: Patient seen and examined for UTI. Diarrhea +No N/V/Abd pain. No new complaints. No overnight events - Objective Vital Signs & Weight: Vital Signs (12 hours) Temp Pulse Pulse Pulse Resp BP BP 03/09/20 15:00 97.9 F 77 14 03/09/20 11:30 98.5 F 71 14 03/09/20 10:32 75 73 142/76 H 143/71 H 03/09/20 10:16 77 75 138/64 142/76 H 03/09/20 07:30 97.8 F 75 14 BP Pulse Ox 03/09/20 15:00 155/78 H 93 L 03/09/20 11:30 167/79 H 95 03/09/20 10:32 03/09/20 10:16 03/09/20 07:30 136/65 94 L Weight Weight 156 lb 6.4 oz I&O: 03/08/20 03/09/20 03/10/20 06:59 06:59 06:59 Intake Total 3840 2426 Output Total 1200 2975 Balance 2640 -549 Result Diagrams: 03/09/20 04:16 03/09/20 04:16 EKG Reviewed by me: Yes (Tele SR) Hospitalist ROS - Review of Systems Respiratory: denies: cough, dry, shortness of breath, hemoptysis, SOB with excertion, pleuritic pain, sputum, wheezing, other Cardiovascular: denies: chest pain, palpitations, orthopnea, paroxysmal noc. dyspnea, edema, light headedness, other Gastrointestinal: denies: nausea, vomiting, abdominal pain, diarrhea, constipation, melena, hematochezia, other - Medication Medications: Active Medications Generic Name Dose Route Start Last Admin Trade Name Freq PRN Reason Stop Dose Admin Calcium/Vitamin D 1 tab 03/09/20 08:00 03/09/20 08:12 Caltrate 600 + Vit D PO 1 tab QAM-WM ANTONIO Administration Docusate Sodium 100 mg 03/06/20 09:00 03/09/20 08:12 Colace PO Not Given DAILY ANTONIO Duloxetine HCl 120 mg 03/06/20 21:00 03/08/20 21:05 Cymbalta PO 120 mg HS ANTONIO Administration Ergocalciferol 1.25 mg 03/08/20 15:00 03/08/20 16:45 Drisdol PO 1.25 mg Q7D ANTONIO Administration Ferrous Sulfate 325 mg 03/06/20 09:00 03/09/20 08:12 Feosol PO 325 mg DAILY ANTONIO Administration Heparin Sodium (Porcine) 5,000 units 03/06/20 09:00 03/09/20 14:55 Heparin SC 5,000 units TID ANTONIO Administration Hyoscyamine Sulfate 0.125 mg 03/05/20 22:42 03/06/20 13:02 Levsin PO 0.125 mg Q4H PRN Administration Bladder Spasms Piperacillin Sod/Tazobactam 100 mls @ 200 mls/hr 03/05/20 23:59 03/09/20 17: 45 Sod 3.375 gm/ Sodium Chloride IVPB 100 mls Q6HR ANTONIO Administration Metronidazole 500 mg/ Device 100 mls @ 100 mls/hr 03/08/20 22:00 03/09/20 14: 55 IVPB 100 mls Q8HR ANTONIO Administration Ondansetron HCl 4 mg 03/06/20 08:01 03/06/20 13:02 Zofran IVP 4 mg Q6H PRN Administration Nausea/Vomiting Saccharomyces Boulardii 250 mg 03/08/20 21:00 03/09/20 08:12 Florastor PO 250 mg BID ANTONIO Administration Sodium Bicarbonate 650 mg 03/08/20 09:00 03/09/20 08:12 Bicarbonate, Sodium PO 650 mg BID ANTONIO Administration Sodium Chloride 10 ml 03/06/20 09:00 03/09/20 08:13 Flush - Normal Saline IVF 10 ml Q12HR ANTONIO Administration Tramadol HCl 50 mg 03/05/20 22:43 03/06/20 14:32 Ultram PO 50 mg Q4H PRN Administration Pain - Exam General Appearance: NAD Neck: supple, no JVD Heart: no murmur, no gallops Respiratory: no wheezes, no ronchi Gastrointestinal: non-distended, normal bowel sounds, no guarding, no rigidity Gastrointestinal - other findings: liquid stool in colostomy Extremities: no cyanosis Hosp A/P - Plan elliott catheter, PT/OT, DVT proph w/heparin, DVT proph w/SCDs Sepsis due to catheter associated UTI Diarrhea of unclear etiology SKYLER on CKD 3 h/o MS B/L Renal cyst Vit D def HTN Hyponatremia Moderate PEM - POA PLAN: Stool w/u reviewed Cont IV Zosyn with Flagyl Consult GI due to persistent diarrhea Urine cultures - negative AM labs Cont other meds as above
--- NOTE | 2020-03-09 19:58 | CON ---
DATE OF CONSULTATION: 03/09/2020 CHIEF COMPLAINT: Diarrhea. HISTORY OF PRESENT ILLNESS: Ms. Maciel is a 64-year-old woman with multiple sclerosis who has had a suprapubic catheter for years and a more recent colostomy performed. She was admitted with urinary tract infection, sepsis and bladder spasms. She had been on Levaquin and vancomycin and had been on Cipro before that and at this hospital stay was started on IV Zosyn instead. She received IV fluids. She had acute renal injury with this as well. Over the last two days, which was already a couple of days into her hospitalization, she started having liquidy loose stools from her colostomy and having to empty her bag 3 or 4 times per day. Prior to that, her stools have been more formed. She has had no blood in the stool. No fever. No nausea or vomiting. She has had some mild pain in the suprapubic area, but no other abdominal pain. She underwent colostomy several months ago at [facility] to protect her skin as she has become incontinent with progression of her multiple sclerosis. Unfortunately, she had necrosis around the colostomy site and had to have it revised 3 days after the initial surgery and now she has also had again devitalized mucosa around her colostomy and her surgeon has recommended surgery again, but she has been wanting to avoid further surgery. GI was consulted due to the diarrhea. PAST MEDICAL HISTORY: Multiple sclerosis, frequent urinary tract infections, intermittent diarrhea since the colostomy was performed in October, hypertension. PAST SURGICAL HISTORY: Cholecystectomy, hysterectomy, gastric band, suprapubic catheter, colostomy and revision of the colostomy. FAMILY HISTORY: Negative for GI malignancy. SOCIAL HISTORY: No alcohol, tobacco, or drugs. ALLERGIES: ROCEPHIN AND CLINDAMYCIN. CURRENT INPATIENT MEDICATIONS: Include: 1. Docusate. 2. Duloxetine. 3. Ergocalciferol. 4. Ferrous sulfate. 5. Fingolimod. 6. Heparin subcutaneously. 7. Metronidazole. 8. Oxybutynin. 9. Zosyn. 10. Polyethylene glycol. 11. Rizatriptan. 12. Florastor. REVIEW OF SYSTEMS: Negative x10 systems reviewed except as stated in the history of present illness. PHYSICAL EXAMINATION: VITAL SIGNS: Temperature 97.9, pulse 77, blood pressure 155/78. GENERAL: She is in no acute distress. She is alert and oriented x3. Her eyes have no scleral icterus. Oropharynx is clear without lesions. No cervical or supraclavicular lymphadenopathy. LUNGS: Clear to auscultation bilaterally. HEART: Regular rate and rhythm without murmur. ABDOMEN: Soft, nontender, and nondistended. Bowel sounds are present. EXTREMITIES: No lower extremity edema. She has a colostomy in place in the right lower quadrant. A suprapubic catheter in place. She has liquidy green stool in her colostomy bag. The mucosa of the colon of the colostomy is not well visualized, but appears to be dark. Creatinine was 1.76 on presentation and is down to 1.0 today. Bilirubin 0.4, AST 11, ALT 10, and alkaline phosphatase 125. White blood cell count 6.3, hemoglobin 10, platelets 357. Her white blood cell count is down from 23.5 back on 03/06. IMAGING: CT scan of the abdomen and pelvis showed possible thickening in the left colon and sigmoid with some fat stranding. IMPRESSION: 1. Acute diarrhea. She has had liquidy green stools over the last couple of days. Most likely this is just secondary to the multiple antibiotics. She also came in with sepsis and acute renal failure, dehydration and hypotension and it is also possible that this is an acute ischemic colitis given the thickening in the left colon noted by CT. Ischemic colitis so often presents with bloody diarrhea and pain where as this is more of just diarrhea and mild suprapubic pain. Either way, the treatment is going to be supportive care with IV fluids and probiotics and ultimately limiting any unnecessary antibiotics and trying to complete the current course of antibiotics as soon as possible. She did test negative for Clostridium difficile and culture and had a negative rapid parasite screen. Her lactoferrin was positive. RECOMMENDATIONS: 1. IV fluids. 2. Taper antibiotics as soon as it is feasible. 3. Agree with probiotics. 4. I will sign off for now. 5. Please call, if GI can be of assistance. Job ID: [id number]
[2020-03-09] MEDS: DULoxetine 60 MG CAP PO SCH (20:53)
[2020-03-10] MEDS: Piperacillin/Tazobactam 3.375 GM in Sodium Chloride 0.9% 100 ML IVPB SCH ×3 (05:08→18:06)
[2020-03-10] MEDS: metroNIDAZOLE 500 MG in Premix Bag 1 BAG IVPB SCH ×2 (05:12→13:00)
[2020-03-10 06:49] LABS: Mean Corpuscular HGB CONC 31.9 g/dL (32.0-36.0); Mean Corpuscular Hemoglobin 27.2 pg (27.0-31.0); Mean Corpuscular Volume 85.2 fL (78.0-98.0); Mean Platelet Volume 6.9 fL (7.4-10.4); Platelet Count 327 thou/uL (130-400); Red Blood Cell (RBC) Count 3.68 mill/uL (4.20-5.40); White Blood Cell (WBC) Count 6.9 thou/uL (4.8-10.8)
[2020-03-10 07:16] LABS: ALT (SGPT) 7 U/L (8-55); AST (SGOT) 9 U/L (5-34); Albumin 2.2 g/dL (3.4-4.8); Alkaline Phosphatase 90 U/L (40-110); Anion Gap 11 mmol/L (10-20); BUN (Urea Nitrogen) 15 mg/dL (9.8-20.1); Bilirubin, Total 0.3 mg/dL (0.2-1.2); Calc. Creatinine Clearance 74 mL/min (70-130); Calcium 8.1 mg/dL (7.8-10.44); Carbon Dioxide 22 mmol/L (23-31); Chloride 111 mmol/L (98-107); Estimated GFR-MDRD 67; Globulin 2.2 g/dL (2.4-3.5); Glucose 79 mg/dL (80-115); Magnesium 1.5 mg/dL (1.6-2.6); Potassium 3.3 mmol/L (3.5-5.1); Protein, Total 4.4 g/dL (6.0-8.3); Sodium 141 mmol/L (136-145)
[2020-03-10 08:35] LABS: Band 11 % (5-11); Eosinophils 3 % (0-10); Lymphocytes 10 % (21-51); MDiff Complete? YES; Metamyelocyte 1 % (0-0); Monocytes 11 % (0-10); Myelocyte 1 % (0-0); Neutrophil 60 % (42-75); Platelet Morphology Comment Appears Adequate; Polychromasia SLIGHT = 2-3 cells (100X) (0-2/hpf); Reactive Lymphocytes 2 % (0-10)
[2020-03-10] MEDS: Sodium Bicarbonate Tab 325 MG TAB PO SCH ×2 (08:40→20:11)
[2020-03-10] MEDS: Ferrous Sulfate 325 MG TAB PO SCH (08:40)
[2020-03-10] MEDS: Saccharomyces boulardii 250 MG CAP PO SCH ×2 (08:40→20:10)
[2020-03-10] MEDS: Calcium Carbonate 600 MG + Vit D TAB PO SCH (08:40)
[2020-03-10] MEDS: Oxybutynin 5 MG TAB PO SCH (08:40)
[2020-03-10] MEDS: Heparin 5,000 UNITS/ML VIAL SC SCH ×3 (08:41→20:11)
[2020-03-10] MEDS ORDERED: Potassium Chloride 20 MEQ TAB PO SCH (11:30)
--- NOTE | 2020-03-10 11:41 | PDOC.HOSPP ---
- Subjective Encounter Date: 03/10/20 Encounter Time: 14:22 Subjective: Ms. Maciel is seen today for follow up of UTI and diarrhea. She reports some mild ongoing diarrhea, but this is improving. She also reports a small scrap on her left fourth and fifth toes. No complaints currently. Denies any fever, chills, nausea, vomiting, diaphoresis, chest pain, shortness of breath. She reports that she has been able to sit up on the bed with the help of PT, which is similar to her baseline mobility at home. - Objective Vital Signs & Weight: Vital Signs (12 hours) Temp Pulse Resp BP Pulse Ox 03/10/20 08:00 95 03/10/20 07:54 97.7 F 76 20 151/83 H 95 03/10/20 05:03 97.8 F 74 20 149/77 H 95 03/10/20 00:54 98.4 F 77 20 150/77 H 95 Weight Weight 156 lb 6.4 oz I&O: 03/09/20 03/10/20 03/11/20 06:59 06:59 06:59 Intake Total 2426 1320 Output Total 2974 3955 Balance -549 -397 Result Diagrams: 03/10/20 06:16 03/10/20 06:16 Additional Labs: Accuchecks 03/10/20 05:06 POC Glucose 84 Hospitalist ROS - Review of Systems Respiratory: denies: cough, dry, shortness of breath, hemoptysis, SOB with excertion, pleuritic pain, sputum, wheezing, other Cardiovascular: denies: chest pain, palpitations, orthopnea, paroxysmal noc. dyspnea, edema, light headedness, other Gastrointestinal: reports: diarrhea (mild and improving) - Medication Medications: Active Medications Generic Name Dose Route Start Last Admin Trade Name Freq PRN Reason Stop Dose Admin Calcium/Vitamin D 1 tab 03/09/20 08:00 03/10/20 08:40 Caltrate 600 + Vit D PO 1 tab QAM-WM ANTONIO Administration Duloxetine HCl 120 mg 03/06/20 21:00 03/09/20 20:53 Cymbalta PO 120 mg HS ANTONIO Administration Ergocalciferol 1.25 mg 03/08/20 15:00 03/08/20 16:45 Drisdol PO 1.25 mg Q7D ANTONIO Administration Ferrous Sulfate 325 mg 03/06/20 09:00 03/10/20 08:40 Feosol PO 325 mg DAILY ANTONIO Administration Heparin Sodium (Porcine) 5,000 units 03/06/20 09:00 03/10/20 08:41 Heparin SC 5,000 units TID ANTONIO Administration Hyoscyamine Sulfate 0.125 mg 03/05/20 22:42 03/06/20 13:02 Levsin PO 0.125 mg Q4H PRN Administration Bladder Spasms Piperacillin Sod/Tazobactam 100 mls @ 200 mls/hr 03/05/20 23:59 03/10/20 05: 08 Sod 3.375 gm/ Sodium Chloride IVPB 100 mls Q6HR ANTONIO Administration Metronidazole 500 mg/ Device 100 mls @ 100 mls/hr 03/08/20 22:00 03/10/20 05: 12 IVPB 100 mls Q8HR ANTONIO Administration Ondansetron HCl 4 mg 03/06/20 08:01 03/06/20 13:02 Zofran IVP 4 mg Q6H PRN Administration Nausea/Vomiting Oxybutynin Chloride 5 mg 03/10/20 09:00 03/10/20 08:40 Ditropan PO 5 mg DAILY ANTONIO Administration Saccharomyces Boulardii 250 mg 03/08/20 21:00 03/10/20 08:40 Florastor PO 250 mg BID ANTONIO Administration Sodium Bicarbonate 650 mg 03/08/20 09:00 03/10/20 08:40 Bicarbonate, Sodium PO 650 mg BID ANTONIO Administration Sodium Chloride 10 ml 03/06/20 09:00 03/10/20 08:44 Flush - Normal Saline IVF 10 ml Q12HR ANTONIO Administration Tramadol HCl 50 mg 03/05/20 22:43 03/06/20 14:32 Ultram PO 50 mg Q4H PRN Administration Pain - Exam General Appearance: NAD, awake alert Heart: RRR, no murmur, no gallops, no rubs Respiratory: CTAB Gastrointestinal: soft, non-tender, normal bowel sounds Extremities: no cyanosis, no edema Extremities - other findings: scabbed wound over the left 4th and 5th toes Psychiatric: A&O x 3 Hosp A/P - Plan Sepsis due to catheter associated UTI Diarrhea- Per GI, felt to be due to her antibiotics. C-dif negative. Stool parasite screen negative. SKYLER on CKD 3 h/o MS B/L Renal cyst Vit D def HTN Hyponatremia Hypomagnesemia Hypophosphatemia Moderate PEM - POA PLAN: Stool w/u reviewed Cont IV Zosyn Replace Mag and Phos Will need 7 days of IV Ertapenem - Pt is allergic to Ceftriaxone SNF eval DC Flagyl AM labs Cont other meds as above
[2020-03-10] MEDS ORDERED: Magnesium Sulfate 4 GM in Sodium Chloride 0.9% 250 ML 250 ML IVPB SCH (12:30)
[2020-03-10] MEDS: Potassium Chloride 20 MEQ TAB PO SCH (18:06)
[2020-03-10] MEDS: DULoxetine 60 MG CAP PO SCH (20:10)
[2020-03-11] MEDS: Piperacillin/Tazobactam 3.375 GM in Sodium Chloride 0.9% 100 ML IVPB SCH ×3 (00:15→11:14)
[2020-03-11 06:02] LABS: Albumin 2.2 g/dL (3.4-4.8); Anion Gap 11 mmol/L (10-20); BUN (Urea Nitrogen) 12 mg/dL (9.8-20.1); BUN/Creatinine Ratio 13.19; Calc. Creatinine Clearance 69 mL/min (70-130); Calcium 8.3 mg/dL (7.8-10.44); Carbon Dioxide 24 mmol/L (23-31); Chloride 109 mmol/L (98-107); Estimated GFR-MDRD 62; Glucose 97 mg/dL (80-115); Magnesium 1.9 mg/dL (1.6-2.6); Phosphorus 3.4 mg/dL (2.3-4.7); Potassium 3.7 mmol/L (3.5-5.1); Sodium 140 mmol/L (136-145)
[2020-03-11] MEDS: Saccharomyces boulardii 250 MG CAP PO SCH (08:14)
[2020-03-11] MEDS: Oxybutynin 5 MG TAB PO SCH (08:14)
[2020-03-11] MEDS: Calcium Carbonate 600 MG + Vit D TAB PO SCH (08:14)
[2020-03-11] MEDS: Potassium Chloride 20 MEQ TAB PO SCH (08:15)
[2020-03-11] MEDS: Ferrous Sulfate 325 MG TAB PO SCH (08:16)
[2020-03-11] MEDS: Heparin 5,000 UNITS/ML VIAL SC SCH ×2 (08:16→14:26)
[2020-03-11] MEDS: Sodium Bicarbonate Tab 325 MG TAB PO SCH (08:23)
[2020-03-11 16:24] VITALS: BP 154/78; TEMP 98
--- NOTE | 2020-03-12 08:41 | DIS ---
DATE OF ADMISSION: 03/05/2020 DATE OF DISCHARGE: 03/11/2020 DISCHARGE DISPOSITION: [facility] facility. FOLLOWUP: Follow up with primary care physician in 1 week. CODE STATUS: Do not resuscitate. ALLERGIES: THE PATIENT IS ALLERGIC TO CEFTRIAXONE AND CLINDAMYCIN. DISCHARGE MEDICATIONS: 1. Invanz 1 g daily for the next 7 days. 2. Oxybutynin 5 mg b.i.d. 3. Calcium carbonate one tablet b.i.d. 4. Ergocalciferol 1.25 mg every 7 days. 5. Levsin 0.15 mg as needed. 6. All other home medications were left unchanged. The patient was seen and examined on the day of discharge. Denies any new complaints. No chest pain, shortness of breath, or palpitations reported. Her diarrhea has significantly improved. BRIEF HOSPITAL COURSE: The patient is a 64-year-old female with multiple sclerosis with chronic urinary retention status post suprapubic catheter, presented to the hospital with generalized weakness along with bladder spasms. Her workup was consistent with sepsis secondary to catheter-associated UTI. Her WBC count on admission was 23.5 with 64% bandemia. Her urine culture was positive for Providencia sensitive to ceftriaxone and Zosyn. She was placed on Zosyn in the hospital. I discussed with Infectious Disease, who recommended one more week of IV antibiotic. For this reason, she was [facility] to [facility] facility. The patient started developing diarrhea after antibiotics. Please note, that patient has a history of colostomy. She was evaluated by Gastroenterology Service, Dr. Orona. A stool workup was essentially negative except for stool lactoferrin positive. Her diarrhea was felt to be secondary to antibiotics. The patient was also evaluated by college tutor due to acute kidney injury with creatinine of 1.95 on admission that improved to 0.91. Renal ultrasound showed bilateral renal cyst. The patient was advised to follow up with Nephrology as outpatient. She also had some calcific foci in the right kidney representing a nonobstructing renal calculi versus some . FINAL DIAGNOSES: 1. Sepsis due to catheter-associated urinary tract infection. 2. Antibiotic-associated diarrhea. Clostridium difficile was ruled out. 3. Acute kidney injury on chronic kidney disease stage 3, resolved. 4. History of colostomy. 5. History of suprapubic catheter. 6. Bilateral renal cyst. 7. Questionable renal calculi. 8. Vitamin D deficiency. 9. Hypertension. 10. Hyponatremia. 11. Hypomagnesemia. 12. Hypophosphatemia. 13. Moderate protein energy malnutrition. Time coordinating the discharge of this patient was 37 minutes. Job ID: [id number]
== END 2020-03-11 14:49 | disposition swing bed (61) | DRG 698 ==
LOC: 2NO 19:14 → T4-A 03-09 20:21
PROVIDERS: ADMIT Internal Medicine; ATTEND Internal Medicine
DX: T83.518A Infection and inflammatory reaction due to other urinary catheter, initial encounter (principal); A41.9 Sepsis, unspecified organism; E44.0 Moderate protein-calorie malnutrition; E87.1 Hypo-osmolality and hyponatremia; G82.20 Paraplegia, unspecified; E87.2 Acidosis; N17.9 Acute kidney failure, unspecified; N28.1 Cyst of kidney, acquired; Z66 Do not resuscitate; N18.3 Chronic kidney disease, stage 3 (moderate); I12.9 Hypertensive chronic kidney disease with stage 1 through stage 4 chronic kidney disease, or unspecified chronic kidney disease; E83.42 Hypomagnesemia; E83.39 Other disorders of phosphorus metabolism; K52.9 Noninfective gastroenteritis and colitis, unspecified; E87.5 Hyperkalemia; N31.9 Neuromuscular dysfunction of bladder, unspecified; D63.1 Anemia in chronic kidney disease; G35 Multiple sclerosis; E83.51 Hypocalcemia; E87.8 Other disorders of electrolyte and fluid balance, not elsewhere classified; Z68.28 Body mass index [BMI] 28.0-28.9, adult; Z88.1 Allergy status to other antibiotic agents; Z98.84 Bariatric surgery status; Z93.3 Colostomy status; Y84.6 Urinary catheterization as the cause of abnormal reaction of the patient, or of later complication, without mention of misadventure at the time of the procedure; Z79.899 Other long term (current) drug therapy
CPT/HCPCS: 36415; 36416; 74176; 76770; 80048; 80053; 80069; 81001; 82306; 83605; 83630; 83735; 84100; 85025; 85060; 87045; 87046; 87086; 87324; 87328; 87329; 87427; 87449; J1644; J2405; J2543; J3475; J3490; J7050; J7070; Q0163

== ENCOUNTER 2020-05-26 18:46 | Inpatient (IN) | payer MEDICARE ==
[2020-05-26] MEDS ORDERED: Morphine 4 MG/ML VIAL SLOW IVP PRN (23:06)
[2020-05-26] MEDS ORDERED: Ondansetron ODT 4 MG TAB SL PRN (23:15)
[2020-05-26] MEDS ORDERED: D5 1/2 NS w/20 mEq KCL 1,000 ML IV SCH (23:15)
[2020-05-26] MEDS ORDERED: Ondansetron PF 4 MG/2 ML Vial IVP PRN (23:15)
[2020-05-26] MEDS ORDERED: Acetaminophen 325 MG TAB PO PRN (23:15)
[2020-05-27] MEDS ORDERED: Prevnar 13-Val Conj/PF 0.5 ML SYRINGE IM ONE (09:00)
[2020-05-27] MEDS ORDERED: PROPOFOL 200 MG/20 ML VIAL ONE (11:03)
[2020-05-27] MEDS ORDERED: Ondansetron PF 4 MG/2 ML Vial ONE ×2 (11:03→20:01)
[2020-05-27] MEDS ORDERED: Lidocaine 1% PF 5 ML VIAL ONE (11:03)
[2020-05-27 13:15] LABS: SARS-CoV-2 MS2 Positive; SARS-CoV-2 N Gene Negative; SARS-CoV-2 S Gene Negative; SARS-CoV-2 by NAA Not Detected (NotDetected); SARS-CoV-2 orf1ab Negative
[2020-05-27 13:37] VITALS: BMI 22.8
[2020-05-27] MEDS ORDERED: Acetaminophen 325 MG TAB PO PRN (14:24)
[2020-05-27] MEDS ORDERED: Ondansetron PF 4 MG/2 ML Vial IVP PRN ×2 (14:25→14:33)
[2020-05-27] MEDS ORDERED: Morphine 4 MG/ML VIAL SLOW IVP PRN ×2 (14:25→14:33)
[2020-05-27] MEDS ORDERED: Ondansetron ODT 4 MG TAB SL PRN (14:25)
[2020-05-27] MEDS ORDERED: hydrOXYzine 25 MG TAB PO PRN (14:31)
[2020-05-27] MEDS: D5 1/2 NS w/20 mEq KCL 1,000 ML IV SCH (14:32)
[2020-05-27] MEDS ORDERED: Morphine 2 MG/ML VIAL SLOW IVP PRN (14:33)
[2020-05-27] MEDS ORDERED: hydrALAZINE 20 MG/ML VIAL SLOW IVP PRN (14:33)
[2020-05-27] MEDS ORDERED: Lorazepam 2 MG/ML VIAL SLOW IVP PRN ×2 (14:33)
[2020-05-27] MEDS ORDERED: Ondansetron ODT 4 MG TAB PO PRN (14:33)
[2020-05-27] MEDS ORDERED: SUMAtriptan Succinate 50 MG TAB PO PRN (14:44)
[2020-05-27] MEDS ORDERED: metroNIDAZOLE 500 MG in Premix Bag 1 BAG IVPB SCH (14:45)
--- NOTE | 2020-05-27 14:59 | HP ---
HISTORY OF PRESENT ILLNESS: Lui Maciel is a 64-year-old female with multiple sclerosis. She has been nonambulatory for 20 years. She is mostly in a wheelchair. She lives with her . Her helps her with transfers. She had on December 06, 2019, colostomy, robot, performed at [facility] by Dr. Maravilla. Two days later, she had necrosis of the colostomy site and had to have it revised. She has suffered stenosis progressive resulting in constipation. Dr. Maravilla has talked to her about revision, but she does not want to go at [facility]. She presented to our emergency room with abdominal pain and constipation, lack of colostomy output. CAT scan reveals colostomy outlet obstruction. Her colostomy is in the right upper quadrant placed here because it was felt that she can manage it better here. She has retraction of the skin due to the scarring and cicatrix. Plan is revision of her colostomy working on the surface. Plan laparoscopic assisted laparotomy is indicated to resolve this problem. She is happy where her colostomy is at this time. ALLERGIES: CEFTRIAXONE, CLINDAMYCIN, STATINS. TOBACCO, NONE. ALCOHOL, NONE. HOME MEDICATIONS: 1. Ibuprofen. 2. Lisinopril 10 mg b.i.d. 3. Calcium. 4. Iron. 5. Cholecalciferol. 6. Gilenya 0.5 mg p.o. at bedtime. 7. Cymbalta 120 mg at bedtime. 8. Rizatriptan 10 mg p.o. b.i.d. p.r.n. 9. Ditropan 5 mg b.i.d. 10. Zofran p.r.n. PAST SURGICAL HISTORY: Laparoscopic cholecystectomy; laparoscopic adjustable band in 1978 in [place], 200 pounds preoperatively, 134 pounds currently, successful weight loss maintained without band adjustments postoperatively at all. Robot colostomy on December 06, 2019, revision on December 08, 2019, multiple admissions for colostomy related problems. PAST MEDICAL HISTORY: Multiple sclerosis, hypertension, nonambulatory as noted above. REVIEW OF SYSTEMS: Ten-point noncontributory. No cardiac symptomatology. No cardiac evaluation required in the past. No symptoms of cardiac problems. The patient is up to date on her colonoscopies. FAMILY HISTORY: Unremarkable. PHYSICAL EXAMINATION: VITAL SIGNS: Height 5 feet 4 inches, 133 pounds, 22 BMI. Temperature 98.4, pulse 89, respiratory rate 16, blood pressure 139/88. HEAD, EARS, EYES, NOSE AND THROAT: Unremarkable. LUNGS: Clear to auscultation. CARDIAC: Regular rate and rhythm without murmur or gallop. ABDOMEN: Soft, mildly tender, colostomy in right upper quadrant without an appliance. There is no drainage. There is a very tight stenosis. I cannot even place a finger through. There is retraction of the skin in the area due to this cicatrix. There is no evidence of infection. Suprapubic tube in place. EXTREMITIES: Distortion secondary to 20 years of nonambulatory ability. LABORATORY DATA: COVID negative. White count 9 and hemoglobin 11.9. Basic metabolic profile normal. Urinalysis reveals nitrate positive, rare bacteria. ASSESSMENT AND PLAN: 1. Dysfunctional colostomy, right upper quadrant. Plan revision as described above. She understands risks and benefits and consents. 2. Multiple sclerosis. 3. Hypertension. Job ID: [id number]
[2020-05-27] MEDS: Lactated Ringer's 1,000 ML IV SCH (16:01)
[2020-05-27] MEDS ORDERED: Levofloxacin 500 mg/D5W 100 ml Premix Bag ONE (17:40)
[2020-05-27] MEDS ORDERED: metroNIDAZOLE 500 MG/100 ML BAG ONE (17:40)
[2020-05-27] MEDS ORDERED: Bupivacaine HCl 0.5%/Epinephrine 1:200,000/PF 30 ml Vial ONE (17:56)
[2020-05-27] MEDS ORDERED: Fentanyl 100 MCG/2 ML VIAL ONE ×2 (18:02→20:04)
[2020-05-27] MEDS ORDERED: Phenylephrine 10 MG/ML VIAL ONE (18:25)
[2020-05-27] MEDS ORDERED: traMADol HCl 50 MG TAB PO PRN (19:49)
[2020-05-27] MEDS ORDERED: Promethazine HCl 25 MG/ML VIAL IM PRN (19:57)
[2020-05-27] MEDS ORDERED: Ondansetron HCl/PF 4 MG/2 ML Vial IVP PRN (19:57)
[2020-05-27] MEDS ORDERED: Promethazine HCl 25 MG/ML VIAL SLOW IVP PRN (19:57)
[2020-05-27] MEDS ORDERED: Famotidine/PF 20 mg/2ml Vial SLOW IVP SCH (21:00)
[2020-05-27] MEDS ORDERED: Fingolimod Hcl [Gilenya] 0.5 MG Capsule PO SCH (21:00)
[2020-05-27] MEDS: traMADol HCl 50 MG TAB PO PRN (21:05)
[2020-05-27] MEDS: Oxybutynin 5 MG TAB PO SCH (21:06)
[2020-05-27] MEDS: DULoxetine 60 MG CAP PO SCH (21:06)
[2020-05-27] MEDS: Polyethylene Glycol 3350 17 GM Packet PO SCH (21:06)
[2020-05-27] MEDS: Lisinopril 10 MG TAB PO SCH (21:07)
[2020-05-27] MEDS: Enoxaparin Sodium 40 MG/0.4 ML SYRINGE SC SCH (21:07)
[2020-05-27] MEDS: Ketorolac Tromethamine 30 MG/ML VIAL IVP SCH (23:48)
--- NOTE | 2020-05-28 00:29 | OP ---
DATE OF PROCEDURE: 05/27/2020 PREOPERATIVE DIAGNOSES: MS, diverting sigmoid colostomy, right upper quadrant with severe stenosis 2 to 3 mm opening with severe constipation and pain. POSTOPERATIVE DIAGNOSES: MS, diverting sigmoid colostomy, right upper quadrant with severe stenosis 2 to 3 mm opening with severe constipation and pain. PROCEDURE: Revision of right upper quadrant colostomy with laparotomy, lysis of adhesions, sigmoid colon resection, colostomy formation. ANESTHESIA: General. ESTIMATED BLOOD LOSS: Less than 100 mL. DESCRIPTION OF PROCEDURE: Patient was taken to the operating room, where under general anesthesia, abdomen was prepared with ChloraPrep and draped in routine fashion. Patient had an opening in the right upper quadrant, it was about to 3 mm in diameter. She had retracted from ischemic colostomy. Incision was made circumferentially in the skin down to the skin, subcutaneous tissue down to the fascia, resecting the colon from the fascia, enlarging the fascial opening. I then visually was able to mobilize adhesions from the upper abdomen and left upper and right lateral abdomen, but there is severe scarring in the midline. This required midline laparotomy made from just above to below the umbilicus, carried out skin and subcutaneous tissue, fascia, and abdominal cavity sharply. There was severe inflammatory process involving the omentum around the sigmoid colon, probably due to chronic ischemia and scarring. This was carefully taken down, freed. I then was able to identify the colon and bring the old colostomy into the abdominal wound. I then fired a stapler TJ 2 load blue load to divide the colon at a healthy level. The colon had adequate length to revise the colostomy with a new segment that was healthy. LigaSure was used to divide the omentum where necessary to enable this process. Healthy colon brought through the new ostomy site. It had been adequately enlarged to accommodate the colon to prevent ischemia. The colon was very healthy. The colon segment resected about 6 inches, submitted to Pathology. Sponge, needle, and instrument counts were correct and good hemostasis noted. Midline fascia closed with continuous suture of #1 PDS. Skin and subcutaneous tissues irrigated. Skin loosely approximated with dahlia and KARAN incisional wound suction device applied over the staple line. Colostomy maturation undertaken by excising the staple line and four Kp sutures of 3-0 Vicryl placed and simple suture 3-0 Vicryl completed colostomy maturation and colostomy appliance secured. Patient tolerated the procedure well. There was good healthy colostomy completed. Job ID: [id number]
[2020-05-28] MEDS: Lactated Ringer's 1,000 ML IV SCH ×3 (01:20→08:05)
[2020-05-28] MEDS: D5 1/2 NS w/20 mEq KCL 1,000 ML IV SCH (01:20)
[2020-05-28] MEDS ORDERED: Lactated Ringer's 1,000 ML IV SCH (04:00)
[2020-05-28 04:52] LABS: Hemoglobin 10.8 g/dL (12.0-16.0); Platelet Count 562 thou/uL (130-400)
[2020-05-28 04:56] LABS: Anion Gap 14 mmol/L (10-20); BUN (Urea Nitrogen) 19 mg/dL (9.8-20.1); Calc. Creatinine Clearance 42 mL/min (70-130); Calcium 8.2 mg/dL (7.8-10.44); Carbon Dioxide 20 mmol/L (23-31); Chloride 107 mmol/L (98-107); Estimated GFR-MDRD 42; Glucose 158 mg/dL (80-115); Potassium 5.6 mmol/L (3.5-5.1); Sodium 135 mmol/L (136-145)
[2020-05-28 05:37] LABS: Band 27 % (5-11); Hemoglobin 10.7 g/dL (12.0-16.0); Lymphocytes 1 % (21-51); MDiff Complete? YES; Mean Corpuscular HGB CONC 31.1 g/dL (32.0-36.0); Mean Corpuscular Hemoglobin 28.5 pg (27.0-31.0); Mean Corpuscular Volume 91.9 fL (78.0-98.0); Mean Platelet Volume 6.8 fL (7.4-10.4); Monocytes 4 % (0-10); Neutrophil 68 % (42-75); Platelet Count 561 thou/uL (130-400); RBC Distribution Width 14.4 % (11.5-14.5); Red Blood Cell (RBC) Count 3.76 mill/uL (4.20-5.40); White Blood Cell (WBC) Count 29.2 thou/uL (4.8-10.8)
[2020-05-28] MEDS ORDERED: Lactated Ringer's 500 ML IV SCH (06:15)
[2020-05-28] MEDS: Ketorolac Tromethamine 30 MG/ML VIAL IVP PRN (06:16)
[2020-05-28] MEDS: Ketorolac Tromethamine 30 MG/ML VIAL IVP SCH (06:31)
[2020-05-28] MEDS: Lisinopril 10 MG TAB PO SCH ×2 (07:34→20:23)
[2020-05-28] MEDS: Polyethylene Glycol 3350 17 GM Packet PO SCH ×3 (08:04→20:22)
[2020-05-28] MEDS: Oxybutynin 5 MG TAB PO SCH ×2 (08:04→20:22)
--- NOTE | 2020-05-28 14:35 | PRG ---
DATE OF SERVICE: 05/28/2020 SUBJECTIVE: Lui Maciel is a 64-year-old female, who is doing well post-revision of her colostomy, requiring laparotomy, adhesiolysis, resection of the stenotic inflamed chronically ischemic colon sigmoid to the right upper quadrant colostomy site. The patient's postoperative pressure has been 87 and 95. Usually, her pressure is 110 to 120. Her heart rate has been normal. Temperature normal. Her white count this morning is 29,000. She has 27% bands. Hemoglobin was 10.7 this morning. Considering her low blood pressure, hemoglobin was rechecked and was 10.8. She has another hemoglobin ordered at 1600 hours. Her creatinine is slightly elevated and potassium slightly high. LR has been discontinued and IV fluids changed to normal saline. She has mild acute kidney injury. The patient has not had a bowel movement in more than 5 days. This was due to high-grade ostomy stenosis and stricture due to ischemic colon. This certainly resulted in dehydration and severe constipation. The patient however feels well this morning. OBJECTIVE: LUNGS: Clear to auscultation. CARDIAC: Regular rate and rhythm. No murmur or gallop. ABDOMEN: Soft, nondistended. Good bowel sounds. Colostomy healthy. KARAN wound suction device. Midline intact. ASSESSMENT/PLAN: 1. Acute kidney injury, dehydration secondary to colostomy stricture. Plan, hydration. Continue IV fluids, boluses. Recheck CBC, basic metabolic profile in the morning. Change LR to normal saline. 2. The patient has history of urinary tract infections with chronic suprapubic tube. Since she had nitrite positive, we will culture urine and initiate IV antibiotics. We will check a cortisol level. 3. Multiple sclerosis. 4. Poor mobility. I have asked nurses to help her up into a chair. Cortisol level was 18, within normal range. Possibly discharged home tomorrow. Job ID: [id number]
[2020-05-28] MEDS: Piperacillin/Tazobactam 4.5 GM in Sodium Chloride 0.9% 100 ML IVPB SCH ×2 (15:07→21:06)
[2020-05-28] MEDS: Sodium Chloride 0.9% 1,000 ML IV SCH ×3 (15:08→22:54)
[2020-05-28] MEDS: Acetaminophen 500 MG TAB PO PRN ×2 (15:55→22:54)
[2020-05-28] MEDS: Ibuprofen 800 MG TAB PO PRN (15:55)
[2020-05-28 16:42] LABS: #Lymphocytes 0.5 thou/uL (1.20-3.40); #Monocytes 0.7 thou/uL (0.11-0.59); #Neutrophils 14.6 thou/uL (1.40-6.50); %Basophils 0.2 % (0.0-1.0); %Eosinophils 0.2 % (0.0-10.0); %Lymphocytes 3.4 % (21.0-51.0); %Monocytes 4.6 % (0.0-10.0); %Neutrophils 91.6 % (42.0-75.0); Hemoglobin 10.3 g/dL (12.0-16.0); Mean Corpuscular HGB CONC 31.8 g/dL (32.0-36.0); Mean Corpuscular Hemoglobin 28.5 pg (27.0-31.0); Mean Corpuscular Volume 89.9 fL (78.0-98.0); Platelet Count 428 thou/uL (130-400); RBC Distribution Width 14.2 % (11.5-14.5); White Blood Cell (WBC) Count 15.9 thou/uL (4.8-10.8)
[2020-05-28 16:45] LABS: Anion Gap 14 mmol/L (10-20); BUN (Urea Nitrogen) 21 mg/dL (9.8-20.1); Calc. Creatinine Clearance 43 mL/min (70-130); Calcium 8.1 mg/dL (7.8-10.44); Carbon Dioxide 21 mmol/L (23-31); Chloride 104 mmol/L (98-107); Estimated GFR-MDRD 43; Glucose 93 mg/dL (80-115); Potassium 5.4 mmol/L (3.5-5.1); Sodium 134 mmol/L (136-145)
[2020-05-28] MEDS: Enoxaparin Sodium 40 MG/0.4 ML SYRINGE SC SCH (20:22)
[2020-05-28] MEDS: DULoxetine 60 MG CAP PO SCH (20:22)
[2020-05-28] MEDS: traMADol HCl 50 MG TAB PO PRN (22:53)
[2020-05-29] MEDS: Ketorolac Tromethamine 30 MG/ML VIAL IVP PRN (00:35)
[2020-05-29 05:03] LABS: #Eosinphils 0.1 thou/uL (0.0-0.7); #Lymphocytes 0.4 thou/uL (1.20-3.40); #Monocytes 1.1 thou/uL (0.11-0.59); #Neutrophils 11.4 thou/uL (1.40-6.50); %Eosinophils 0.9 % (0.0-10.0); %Monocytes 8.5 % (0.0-10.0); %Neutrophils 87.6 % (42.0-75.0); Hemoglobin 8.7 g/dL (12.0-16.0); Mean Corpuscular HGB CONC 32.1 g/dL (32.0-36.0); Mean Corpuscular Hemoglobin 28.9 pg (27.0-31.0); Mean Corpuscular Volume 90.1 fL (78.0-98.0); Mean Platelet Volume 6.7 fL (7.4-10.4); Platelet Count 374 thou/uL (130-400); RBC Distribution Width 14.3 % (11.5-14.5); Red Blood Cell (RBC) Count 3.02 mill/uL (4.20-5.40); White Blood Cell (WBC) Count 13.1 thou/uL (4.8-10.8)
[2020-05-29] MEDS: Piperacillin/Tazobactam 4.5 GM in Sodium Chloride 0.9% 100 ML IVPB SCH ×3 (05:14→21:22)
[2020-05-29] MEDS: Sodium Chloride 0.9% 1,000 ML IV SCH ×3 (05:15→21:22)
[2020-05-29 05:24] LABS: Anion Gap 12 mmol/L (10-20); BUN (Urea Nitrogen) 23 mg/dL (9.8-20.1); Calc. Creatinine Clearance 44 mL/min (70-130); Calcium 7.5 mg/dL (7.8-10.44); Carbon Dioxide 20 mmol/L (23-31); Chloride 110 mmol/L (98-107); Estimated GFR-MDRD 44; Glucose 88 mg/dL (80-115); Potassium 4.8 mmol/L (3.5-5.1); Sodium 137 mmol/L (136-145)
[2020-05-29] MEDS: Polyethylene Glycol 3350 17 GM Packet PO SCH ×3 (10:12→21:24)
[2020-05-29] MEDS: Ibuprofen 800 MG TAB PO PRN (10:13)
[2020-05-29] MEDS: Oxybutynin 5 MG TAB PO SCH ×2 (10:13→21:23)
[2020-05-29] MEDS: Lisinopril 10 MG TAB PO SCH ×2 (10:15→21:23)
[2020-05-29] MEDS ORDERED: Milk Of Magnesia 30 ML UDCUP PO PRN (13:23)
[2020-05-29] MEDS ORDERED: Magnesium Citrate 300 ML BOT PO SCH (13:30)
[2020-05-29] MEDS: Acetaminophen 500 MG TAB PO PRN (14:14)
--- NOTE | 2020-05-29 15:30 | PRG ---
DATE OF SERVICE: 05/29/2020 SUBJECTIVE: Ms. Maciel is doing well today. She is tolerating her diet. She has passed flatus out of her colostomy. Her colostomy looks healthy. She is not having any abdominal pain. She is not having any nausea or vomiting. She is not having any abdominal distention. OBJECTIVE: VITAL SIGNS: Temperature 98.1 degrees, blood pressure 97/68, pulse 89, respiratory rate 18. This morning, her white count is down to 13 with a normal differential. Hemoglobin is down to 8.7. Her BUN and creatinine are 23 and 1.22, stable, slightly improved. Potassium 4.8. LUNGS: Clear to auscultation. CARDIAC: Regular rate and rhythm without murmur or gallop. ABDOMEN: Soft. Colostomy healthy. KARAN suction wound device in place. ASSESSMENT AND PLAN: 1. Multiple sclerosis with limited mobility, wheelchair bound for 20 years. Her helps her mobilize at home. Her has suffered an arm fracture. I have asked case advocate to evaluate her home situation. From a medical standpoint, the patient most likely will be ready to be discharged home tomorrow. If she needs to stay in the hospital for a few more days pending clinical course or for assisted living placement considering her social situation, she may need to stay in the hospital few more days. The patient is unable to transfer herself. She depends on her , who is not able to help her do that. The patient has had a revision of her colostomy. Prior colostomy was stenotic, and she was not wearing an appliance during the day, only at night due to her severe stricture. Now that she has a normal colostomy, she will need to wear a different type of appliance, and I have asked Wound Care to educate her regarding that. Wound Care will also provide her with appliances. 2. The patient's abdominal wound has a KARAN wound suction device on it. She has ostomy appliance. If her ostomy appliance needed to be changed prior to Monday, that can be changed, but we would try to leave the KARAN wound suction device intact. If it is dislodged and malfunctioned, that can be removed earlier, but I would like to leave it on until Monday. Monday plan removal of her KARAN and ostomy appliance and begin routine ostomy care after that. She can leave her wound open to wash it with soap and water, bath or shower daily, leave the wound open otherwise. She has an appointment to see me on June 04 in the office at 1500 to remove her dahlia and evaluate her wound. Dr. Mark is covering over the weekend. 3. Acute kidney injury. This seems to be stabilized. Her urine output is more than adequate. I would continue the Zosyn in the hospital. I have written her prescription for Augmentin for 5 days once discharged. We will saline lock her if she is tolerating liquids well today. 4. Constipation. Continue Citrucel twice a day and MiraLAX. She did get a dose of magnesium citrate today considering her severe constipation and obstipation for 5 to 6 days prior to her colostomy revision. 5. Multiple sclerosis, immobility, wheelchair bound, nonambulatory. 6. Suprapubic tube with recurrent urinary tract infections. Between the ischemic segment of colon and the colon resection and her frequent urinary tract infections, I have put her on Zosyn. Urine culture has been ordered, results pending. Note, Dr. Mark is covering until Monday. Job ID: [id number]
[2020-05-29] MEDS: DULoxetine 60 MG CAP PO SCH (21:23)
[2020-05-29] MEDS: Enoxaparin Sodium 40 MG/0.4 ML SYRINGE SC SCH (21:23)
[2020-05-29] MEDS: Citrucel 500 MG TAB PO SCH (21:23)
[2020-05-29] MEDS: Ondansetron ODT 4 MG TAB PO PRN (23:33)
[2020-05-30] MEDS: Sodium Chloride 0.9% 1,000 ML IV SCH ×2 (01:48→06:31)
[2020-05-30] MEDS: Piperacillin/Tazobactam 4.5 GM in Sodium Chloride 0.9% 100 ML IVPB SCH ×2 (05:09→14:01)
[2020-05-30 05:45] LABS: #Basophils 0.1 thou/uL (0.0-0.2); #Eosinphils 0.4 thou/uL (0.0-0.7); #Lymphocytes 0.2 thou/uL (1.20-3.40); #Monocytes 0.6 thou/uL (0.11-0.59); #Neutrophils 8.8 thou/uL (1.40-6.50); %Basophils 0.5 % (0.0-1.0); %Eosinophils 3.5 % (0.0-10.0); %Lymphocytes 2.1 % (21.0-51.0); %Monocytes 5.9 % (0.0-10.0); Hemoglobin 8.3 g/dL (12.0-16.0); Mean Corpuscular HGB CONC 31.7 g/dL (32.0-36.0); Mean Corpuscular Hemoglobin 28.8 pg (27.0-31.0); Mean Corpuscular Volume 90.7 fL (78.0-98.0); Mean Platelet Volume 6.7 fL (7.4-10.4); Platelet Count 380 thou/uL (130-400); RBC Distribution Width 14.4 % (11.5-14.5); Red Blood Cell (RBC) Count 2.86 mill/uL (4.20-5.40); White Blood Cell (WBC) Count 10.1 thou/uL (4.8-10.8)
[2020-05-30 06:05] LABS: Anion Gap 14 mmol/L (10-20); BUN (Urea Nitrogen) 24 mg/dL (9.8-20.1); Calc. Creatinine Clearance 45 mL/min (70-130); Calcium 7.2 mg/dL (7.8-10.44); Carbon Dioxide 16 mmol/L (23-31); Chloride 112 mmol/L (98-107); Estimated GFR-MDRD 46; Glucose 70 mg/dL (80-115); Potassium 4.5 mmol/L (3.5-5.1); Sodium 137 mmol/L (136-145)
[2020-05-30] MEDS: Ibuprofen 800 MG TAB PO PRN (08:57)
[2020-05-30] MEDS: Citrucel 500 MG TAB PO SCH (09:02)
[2020-05-30] MEDS: Lisinopril 10 MG TAB PO SCH (09:03)
[2020-05-30] MEDS: Oxybutynin 5 MG TAB PO SCH (09:03)
[2020-05-30] MEDS: Polyethylene Glycol 3350 17 GM Packet PO SCH ×2 (09:03→16:47)
[2020-05-30] MEDS: Ondansetron ODT 4 MG TAB PO PRN (12:11)
[2020-05-30 16:39] VITALS: BP 111/73; TEMP 98.3
--- NOTE | 2020-05-30 19:18 | DIS ---
DATE OF ADMISSION: 05/26/2020 DATE OF DISCHARGE: 05/30/2020 DISCHARGE DIAGNOSES: Severe multiple sclerosis, nonambulatory for more than 20 years with fecal urinary incontinence, status post suprapubic tube, managed by Dr. Ware, and colostomy robotic at [facility] in November by Dr. Maravilla. Two to three days after establishment of her colostomy, this had to be revised due to ischemia necrosis. She developed strictures, had problems with that. She presented to our hospital obstipated for 5 days without nausea, vomiting, or distention. CAT scan confirmed colostomy stricture, obstruction with severe constipation. She had mild acute kidney injury. She was hydrated overnight, taken to the operating room for a revision of her colostomy, attempted peristoma but had to be converted to laparotomy with severe inflammation, omental wrapping at the ischemic terminal colon which was located in the right upper quadrant, sigmoid colon. This was taken down from the abdominal wall, resected down to have the colon. The ostomy site enlarged. Colostomy established. Postoperatively, she did well. The next day postoperatively, she had mild acute kidney injury. Given IV fluid hydration, boluses. She had a past history of UTIs, urosepsis with chronic suprapubic tube. A urine culture was submitted and she was given fluid boluses and her urine output. SKYLER resolved. She was started on antibiotics considering this was a clean contaminated case. Her leukocytosis, left shift resolved. Her white count resolved. She was mildly hypotensive, pressure in the 80s to 90s, with fluid boluses and hydration this returned to normal. She is discharged home with a hemoglobin 8.4. She is to resume her home medications as well as given 5 days of Augmentin. She has a KARAN incisional suction device over her midline wound with her ostomy appliance overlying this adhesive. Her KARAN was left in place. She is to move her KARAN on Monday, 2 days from now. She can change her ostomy appliance. As prior to this hospitalization, although she had a colostomy since November, she has been using a day bag, meaning that she left her colostomy open during the day and a bag at night and she had minimal output. She was re-educated on colostomy care and given a set of appliances. Home health was arranged. Her takes care of her at home and helps her in her mobility and transfers with her severe illness and inability to mobilize independently, but her has fractured his arm and unable to help her as much. paste up worker reviewed her situation with the patient and the patient has many friends and oriental orthodox support and home health previously utilized, will be re-established to help her as she has all that equipment and DME at home to manage herself. This situation was verified by the shelter case manager with oriental orthodox friends and family members who all stay there and will be available to help her. She is discharged home with Augmentin for 10 days and follow up in my office later this week. Coordinate appointment with Dr. Ware, upsize her SPT tube, will be made by the office. Job ID: [id number]
--- NOTE | 2020-05-30 20:33 | PRG ---
DATE OF SERVICE: 05/30/2020 SUBJECTIVE: The patient says she feels great. She wants to go home. Her ostomy is working well. She is tolerating a diet. PHYSICAL EXAMINATION: VITAL SIGNS: Temperature 98.7, pulse 90, and blood pressure 109/69. GENERAL: She looks good. Her ostomy is healthy. ABDOMEN: Soft, nondistended. LABORATORY DATA: Her white count is down to 10, H and H 8 and 26. ASSESSMENT: Doing well. PLAN: Discharge to home. Job ID: [id number]
[2020-05-30] MEDS ORDERED: Amoxicillin/Potassium Clav 500 MG TAB PO SCH (21:00)
--- NOTE | 2020-06-02 05:29 | PQF ---
CLINICAL DOCUMENTATION CLARIFICATION FORM: Dear : Keaton Duran Date / Time: 06/02/20 Please exercise your independent, professional judgment in responding to the clarification form. Clinical indicators are provided on the bottom of this form for your review Please check appropriate box(s): [ ] Hypovolemic Shock [ ] Postoperative shock Unspecified [ ] Other diagnosis [ ] Unable to determine In addition, please specify: Present on Admission (POA): [ ] Yes [ ] No [ ] Unable to determine Physician Signature: Date/Time: For continuity of documentation, please document condition throughout progress notes and discharge summary. Thank You. To be completed by CDI/Coding staff for physician review: Present Clinical Indicators - Signs / Symptoms / Labs Results and Location in Medical Record [X] WBC 29.2, Plt count 561, Band 27 Laboratory 05/28 [X] BP 149/87, Pulse 94, Resp 16, Temp 98.4 Dior signs 05/26 [X] BP 87/53; 96/57, Pulse 101, Resp 20, Temp 98.2 Dior signs 05/28 [X] She had necrosis of colostomy site H&P p1 05/26 Dr Duran [X] Dysfunctional colostomy, RUQ H&P p1 05/26 Dr Duran [X] He leukocytosis, left shift resolved DS p1 103Dr Roger [X] She was mildly hypotensive, pressure in 80s to 90s DS p1 103Dr Roger Present Risk Factors Results and Location in Medical Record [X] 64 year-old Female H&P p1 05/26 Dr Duran [X] MS H&P p1 05/26 Dr Duarn [X] HTN H&P p1 05/26 Dr Duran [X] Dysfunctional colostomy, RUQ s/p Revision of colostomy H&P p1 05/26 Dr Duran [X] Suprapubic tube with recurrent urinary tract infection PN p2 05/29 Dr Duran Acute kidney injury PN p2 05/29 Dr Duran ? please move to risk factors Present Treatments Results and Location in Medical Record [X] IV Lactated Ringers 1L NOV 03 [X] IVF NS 1L bolus NOV 04 CDS/Brake Adjuster Signature: Roselia Gudino Phone #: [phone] Date/Time: 06/02/2020 This is a permanent part of the Medical Record [facility]
--- NOTE | 2020-06-02 05:30 | PQF ---
CLINICAL DOCUMENTATION CLARIFICATION FORM: Dear : Keaton Duran Date / Time: 06/02/20 6730 Please exercise your independent, professional judgment in responding to the clarification form. Clinical indicators are provided on the bottom of this form for your review Please check appropriate box(es): [ ] Sepsis due to UTI from Suprapubic catheter infection [ ] Sepsis due to UTI not from Suprapubic catheter infection [ ] Localized infection without Sepsis [ ] SIRS due to Colostomy stricture with SKYLER [ ] SIRS due to Colostomy stricture Without organ dysfunction [ ] Other diagnosis [ ] Unable to determine In addition, please specify: Present on Admission (POA): [ ] Yes [ ] No [ ] Unable to determine Physician Signature: Date/Time: For continuity of documentation, please document condition throughout progress notes and discharge summary. Thank You. To be completed by CDI/Coding staff for physician review: Present Clinical Indicators - Signs / Symptoms / Labs Results and Location in Medical Record [X] WBC 29.2, Plt count 561, Band 27 Laboratory 05/28 [X] BP 149/87, Pulse 94, Resp 16, Temp 98.4 Dior signs 05/26 [X] BP 87/53; 96/57, Pulse 101, Resp 20, Temp 98.2 Dior signs 05/28 [X] Urine Culture: Proteues Mirabilis, Morganella morganii, Pseudomonas Microbiology 05/28 [X] She had necrosis of colostomy site H&P p1 05/26 Dr Duran [X] Dysfunctional colostomy, RUQ H&P p1 05/26 Dr Duran [X] Suprapubic tube with recurrent urinary tract infection PN p2 10/ Dr Duran [X] Acute kidney injury PN p2 10/ Dr Duran [X] He leukocytosis, left shift resolved DS p1 10/3Dr Roger [X] She was mildly hypotensive, pressure in 80s to 90s DS p1 10/3Dr Roger Present Risk Factors Results and Location in Medical Record [X] 64 year-old Female H&P p1 05/26 Dr Duran [X] MS H&P p1 05/26 Dr Duran [X] HTN H&P p1 05/26 Dr Duran [X] Dysfunctional colostomy, RUQ H&P p1 05/26 Dr Duran [X] Suprapubic tube with recurrent urinary tract infection PN p2 05/29 Dr Duran Present Treatments Results and Location in Medical Record [X] Augmentin 500 mg oral NOV 04 [X] IV Lactated Ringers 1L NOV 03 [X] IV Levaquin 500 mg NOV 03 [X] IV Metronidazole 500 mg NOV 03 [X] Zofran 4 mg oral NOV 03 [X] IV Zosyn 4.5 NOV 04 [X] IVF NS 1L bolus NOV 04 [X] Urine Culture Microbiology 05/28 CDS/Lead C Developer Signature: Roselia Gudino Phone #: [phone] Date/Time: 06/02/2020 7329 This is a permanent part of the Medical Record [facility]
--- NOTE | 2020-06-03 16:55 | EKG ---
Test Reason : Blood Pressure : / mmHG Vent. Rate : 092 BPM Atrial Rate : 092 BPM P-R Int : 130 ms QRS Dur : 076 ms QT Int : 382 ms P-R-T Axes : 017 -08 066 degrees QTc Int : 472 ms Normal sinus rhythm Left ventricular hypertrophy with repolarization abnormality Abnormal ECG Confirmed by ROSANGELA LUEVANO, ESTEFANY ([id number]), photographic editor TONY GUERRERO ([id number]) on 06/03/2020 4:53:49 PM Referred By: Confirmed By:ESTEFANY ADAMES MD
== END 2020-05-30 17:18 | disposition home health service (06) | DRG 330 ==
LOC: ERS 18:46 → SURG B 20:41
PROVIDERS: ADMIT Specialist; ATTEND Specialist
PROC: 0D1E0Z4 Bypass Large Intestine to Cutaneous, Open Approach (ICD-10-PCS; principal; 2020-05-27)
PROC: 0DBN0ZZ Excision of Sigmoid Colon, Open Approach (ICD-10-PCS; 2020-05-27)
DX: K94.09 Other complications of colostomy (principal); N17.9 Acute kidney failure, unspecified; N39.0 Urinary tract infection, site not specified; K55.1 Chronic vascular disorders of intestine; G35 Multiple sclerosis; Z20.828 Contact with and (suspected) exposure to other viral communicable diseases; I10 Essential (primary) hypertension; K59.00 Constipation, unspecified; Y83.3 Surgical operation with formation of external stoma as the cause of abnormal reaction of the patient, or of later complication, without mention of misadventure at the time of the procedure; Z99.3 Dependence on wheelchair; Z88.1 Allergy status to other antibiotic agents; Z88.8 Allergy status to other drugs, medicaments and biological substances; Z91.018 Allergy to other foods; Z91.048 Other nonmedicinal substance allergy status; Z79.899 Other long term (current) drug therapy; Z90.49 Acquired absence of other specified parts of digestive tract; Z87.440 Personal history of urinary (tract) infections
CPT/HCPCS: 36415; 36600; 80048; 82533; 85025; 86850; 86900; 86901; 87077; 87086; 87186; 87635; 88304; 93005; J1650; J1885; J1956; J2270; J2370; J2405; J2543; J2704; J3010; J3480; J3490; Q0162; U0003

== ENCOUNTER 2020-07-29 09:09 | Inpatient (IN) | payer MEDICARE ==
[2020-07-29] MEDS ORDERED: Piperacillin/Tazobactam 3.375 GM VIAL ONE (09:27)
[2020-07-29] MEDS ORDERED: Sodium Chloride 0.9% 100 ML ONE (09:27)
[2020-07-29] MEDS ORDERED: Ondansetron PF 4 MG/2 ML Vial ONE (09:45)
[2020-07-29] MEDS ORDERED: Glycopyrrolate 0.2 MG/ML 5 ML SYRINGE ONE (09:45)
[2020-07-29] MEDS ORDERED: Dexamethasone 20 MG/5 ML VIAL ONE (09:45)
[2020-07-29] MEDS ORDERED: PHENYLEPHRINE-NS 100 MCG/ML 10 ML SYRINGE ONE ×2 (09:45)
[2020-07-29] MEDS ORDERED: Rocuronium Bromide 10 MG/ML (10ML VIAL) ONE (09:45)
[2020-07-29] MEDS ORDERED: Lidocaine 1% PF 5 ML VIAL ONE (09:45)
[2020-07-29] MEDS ORDERED: PROPOFOL 200 MG/20 ML VIAL ONE (09:45)
--- NOTE | 2020-07-29 10:06 | RAD ---
RADIOGRAPH ABDOMEN 1 VIEW: Date: 07/29/2020 HISTORY: 64-year-old female for preoperative evaluation. FINDINGS: Right-sided colostomy. Small calcific densities overlying the right upper quadrant. Moderately large volume of colonic stool mostly in the right colon. No small bowel dilation identified. No organomegal y. IMPRESSION: 1. Nonobstructed bowel gas pattern. 2. Right-sided colostomy. 3. Several small calcifications in right upper quadrant. POS: [facility]
[2020-07-29] MEDS ORDERED: Iothalamate Meglumine 60% 50 ML VIAL FS ONE (11:29)
[2020-07-29] MEDS ORDERED: Fentanyl 100 MCG/2 ML VIAL ONE (11:38)
[2020-07-29] MEDS ORDERED: Heparin 1,000 UNITS/ML VIAL ONE (13:08)
[2020-07-29] MEDS ORDERED: Phenazopyridine HCl 100 MG TAB ONE (13:37)
[2020-07-29] MEDS ORDERED: Oxybutynin 5 MG TAB ONE (13:37)
--- NOTE | 2020-07-29 13:58 | RAD ---
Exam: Retrograde IVP HISTORY: Stent/Stone placement FINDINGS: 3 intraoperative views demonstrate retrograde opacification the right intrarenal and extra renal collecting system. Appropriate position right double J ureteral stent. Note is made of a right lower quadrant circular radiopaque focus, presumed to be external to the allan ent. IMPRESSION: Intraoperative fluoroscopy as above.
--- NOTE | 2020-07-29 15:35 | RAD ---
XR Chest 1 View Portable HISTORY: Recent ureteral stent placement COMPARISON: None FINDINGS: The heart size is at upper limits of normal. The lungs are without focal areas of consolida tion, pneumothorax or large pleural effusions. There is mild atelectatic change in the left lung base..
--- NOTE | 2020-07-29 16:15 | OP ---
DATE OF PROCEDURE: 07/29/2020 PREOPERATIVE DIAGNOSES: A 64-year-old female with: 1. Multiple sclerosis. 2. Neurogenic bladder. 3. History of bladder calculi. 4. Right renal calcification, at the level of the renal pelvis, measuring on CT per my review, linear, measuring about 4 mm x 1.0 cm in largest craniocaudal dimension at the renal pelvis. Multiple punctate debris in the right mid to lower pole. 5. Chronic suprapubic tube. 6. Chronic bacteriuria secondary to chronic suprapubic tube. POSTOPERATIVE DIAGNOSES: A 64-year-old female with: 1. Multiple sclerosis. 2. Neurogenic bladder. 3. History of bladder calculi. 4. Right renal calcification, at the level of the renal pelvis, measuring on CT per my review, linear, measuring about 4 mm x 1.0 cm in largest craniocaudal dimension at the renal pelvis. Multiple punctate debris in the right mid to lower pole. 5. Chronic suprapubic tube. 6. Chronic bacteriuria secondary to chronic suprapubic tube. PROCEDURES PERFORMED: 1. Cystoscopy. 2. Right retrograde pyelogram. 3. 6 x 28 double-J ureteral stent placement with distal tail in situ. 4. Evacuation of bladder stones. 5. 24-Indonesian 30 mL suprapubic tube exchange. 6. Ureteroscopy. 7. Laser lithotripsy of multiple right renal calculi. ANESTHESIA: General. COMPLICATIONS: None apparent. DISPOSITION: To recovery room in stable condition. INDICATIONS FOR PROCEDURE AND HISTORY: Ms. Maciel is a 64-year-old female with history of multiple sclerosis since 1988, has a chronic SP tube, diverting colostomy. She previously underwent suprapubic tube placement back in 2008 by a urologist in [place]. She has prior history of urosepsis and renal insufficiency and desired to transition care from her [place] urologist as she does not desire to return to [facility]. She had a chronic SP tube. There was encrusting and not draining, therefore she has been upsized to 24-Indonesian. She presents today for treatment of her renal calculi as it is located in the renal pelvis to prevent further stone complication. Risks and complications of the procedure were reviewed with her in detail including, but not limited to, bleeding; pain; infection; injury to adjacent organs; ureteral, renal, or kidney injury; sepsis. All questions answered to her satisfaction and desired to proceed. DESCRIPTION OF PROCEDURE: After an informed consent was signed, the patient was taken to the operating room and placed in a dorsal lithotomy position with the genital area prepped and draped in the usual surgical sterile fashion. This dorsal lithotomy was difficult to place her because she is contracted; however, we gently placed in lithotomy without severely abducting her hips. The genital area was formally prepped and draped and she received IV Zosyn based on her preoperative urine culture. It has polymicrobial colonization; however, Zosyn demonstrates sensitivity, therefore provided. At this time, her suprapubic tube was clamped, cystoscopy was performed, demonstrating multiple stone debris within the bladder. It had a fluffy appearance, punctate stone nidus, mostly debris, consistent with a suprapubic tube. There were no bladder tumors. UOs are normal in orthotopic position. There was some bullous edema of the left trigone. Therefore, the left UO was somewhat subtle; however, the right UO was easily identified. At this time, an open-ended catheter was utilized for retrograde pyelogram, which did demonstrate no hydronephrosis. Some tortuosity of the proximal ureter was noted. A 0.035 Sensor wire was placed into the right upper pole without difficulty. At this time, a 10-Indonesian dual-lumen access sheath was placed to the proximal ureter with ease and a 0.035 Super Stiff wire was placed into the right upper pole. A 12/14-Indonesian navigator was placed; however, it would not pass beyond the level of the mid sacrum. Therefore, I did not forcibly engage. Therefore, we passed the flexible ureteroscope over the Super Stiff working wire, which did pass without significant issues to the level of the renal pelvis. Upon entering the kidney, there was snow globe like debris of stone within the collecting system. This is likely consistent with her bedridden state, limited mobility. We surveyed the collecting system. In the right mid to lower pole, the renal pelvic stone debris likely migrated into the calyx. Most of her stone sedimentous debris was in the right upper and mid pole. We laser lithotripsied the stone debris and there were some stones that were about 3 mm, and these were laser lithotripsied. We laser lithotripsied the mid pole stone debris as well, and again these are dustlike, fluff like debris. Upon further laser lithotripsy of the mid pole calculi, there were some stone nidus, solitary in nature. There were about 3 to 4 mm and I did laser lithotripsy these. After laser lithotripsy of the stone debris, what remained at the end of the procedure appeared to be a snow-globe effect of sedimentous debris. There may be some stone nidus such as 2 mm in the right mid pole; however, visualization became somewhat suboptimal as there was stone debris within the collecting system. The ureter was surveyed, which demonstrated no evidence of ureteral trauma or ureteral calculi of concern. A 6 x 28 double-J ureteral stent with distal tail was passed without difficulty. The bladder was then inspected and we replaced a new 24-Indonesian 30 mL suprapubic tube. This was attached to gravity bag. Prior to attaching it to gravity bag, I did use a 26-Indonesian resectoscope. Ellik evacuator was utilized to evacuate all sedimentous stone debris, which was successfully performed. She tolerated the procedure well and transported to the recovery room in stable condition. Based on her urine culture, although based on multi-drug resistance, the best option that I have for oral regimen is Bactrim. She will be discharged with Bactrim, continue her antispasmodics. She is scheduled to see me next and plan a followup CT scan the day prior to assess for sedimentous debris that may have concern. If there is still debris of concern, restaging ureteroscopy with access sheath to extract with basket would be ideal. If there is no obvious stone debris of concern, we will remove stent. Job ID: [id number] [facility]
[2020-07-29 16:29] LABS: Actual Bicarbonate (HCO3a) 19.9 mEq/L (22-28); Base Excess (BEa) -6.8 mEq/L (-2.0 to +3.0); CO2 Tension 44.8 mmHg (35.0-45.0); Calcium, Ionized (arterial) 1.19 mmol/L (1.12-1.30); Carboxyhemoglobin (COHb) 0.7 gm% (0.0-3.0); Potassium - ABG Lab 3.95 mmol/L (3.70-5.30); pH, Arterial 7.27 (7.35-7.45)
[2020-07-29] MEDS ORDERED: Acetaminophen 650 MG Suppository PR PRN (16:30)
[2020-07-29] MEDS ORDERED: Sodium Chloride 0.9% 1,000 ML IV SCH (16:30)
[2020-07-29] MEDS ORDERED: Ondansetron PF 4 MG/2 ML Vial IVP PRN (16:30)
[2020-07-29] MEDS ORDERED: Acetaminophen 325 MG TAB PO PRN (16:30)
[2020-07-29] MEDS ORDERED: Guaifenesin DM 100-10/5 ML UDCUP PO PRN (16:30)
[2020-07-29] MEDS ORDERED: Bisacodyl 10 MG SUPP PR PRN (16:30)
[2020-07-29 16:31] LABS: Puncture Site RRA
[2020-07-29] MEDS ORDERED: Hydrocortisone Sod Succ/PF 100 mg/2 ml Vial ONE (16:34)
[2020-07-29] MEDS ORDERED: Sodium Bicarb 50 MEQ/50 ML Abboject 8.4% SYRINGE ONE (16:43)
[2020-07-29] MEDS ORDERED: Vancomycin 1 GM/200 ML BAG ONE (16:49)
[2020-07-29] MEDS ORDERED: Hydrocortisone Sod Succ/PF 100 mg/2 ml Vial IVP SCH (17:00)
[2020-07-29] MEDS ORDERED: Meropenem 2 GM in Sodium Chloride 0.9% 100 ML IVPB ONE (17:00)
[2020-07-29 17:10] LABS: Hemoglobin 10.7 g/dL (12.0-16.0); Mean Corpuscular HGB CONC 32.3 g/dL (32.0-36.0); Mean Corpuscular Hemoglobin 27.6 pg (27.0-31.0); Mean Corpuscular Volume 85.6 fL (78.0-98.0); Platelet Count 210 thou/uL (130-400); RBC Distribution Width 13.6 % (11.5-14.5); Red Blood Cell (RBC) Count 3.87 mill/uL (4.20-5.40); White Blood Cell (WBC) Count 6.1 thou/uL (4.8-10.8)
[2020-07-29 17:30] LABS: Band 24 % (5-11); Lymphocytes 1 % (21-51); MDiff Complete? YES; Metamyelocyte 3 % (0-0); Monocytes 1 % (0-10); Myelocyte 1 % (0-0); Neutrophil 70 % (42-75); Platelet Morphology Comment Appears Adequate; Polychromasia SLIGHT = 2-3 cells (100X) (0-2/hpf); Vacuoles SLIGHT
[2020-07-29 17:37] LABS: Anion Gap 14 mmol/L (10-20); BUN (Urea Nitrogen) 20 mg/dL (9.8-20.1); Calc. Creatinine Clearance 0 mL/min (70-130); Calcium 7.9 mg/dL (7.8-10.44); Carbon Dioxide 22 mmol/L (23-31); Chloride 110 mmol/L (98-107); Glucose 128 mg/dL (80-115); Potassium 3.7 mmol/L (3.5-5.1); Sodium 142 mmol/L (136-145)
--- NOTE | 2020-07-29 17:47 | HP ---
REASON FOR ADMISSION: Acute respiratory failure with hypoxia, possible postprocedure instrumentation sepsis, acute metabolic encephalopathy. HISTORY OF PRESENTING ILLNESS: The patient had scheduled cystoscopy with right retrograde pyelogram and stenting procedure done. She also had evacuation of bladder stones and suprapubic tube exchange done along with laser lithotripsy of multiple right renal calculi done by Dr. Ware today, this morning. Postprocedure, the patient was recovering well, but then soon became more confused and mental status started to worsen. She also started to have rapid shallow breathing and became more encephalopathic. In view of this, the decision was made to admit her to ICU for close monitoring. She has history of multiple sclerosis and is wheelchair-bound. She has contractures in all 4 extremities. The patient also has a colostomy and a suprapubic catheter as well. In view of all the above-mentioned factors, the decision was made to keep her in ICU for close monitoring. If the patient were to worsen, the plan is to intubate her. PAST MEDICAL AND SURGICAL HISTORY: History of multiple sclerosis, which appears to be progressive with contractures of all 4 extremities. She has neurogenic bladder with suprapubic catheter, history of colostomy, cholecystectomy, total abdominal hysterectomy with bilateral salpingo-oophorectomy, gastric banding, history of colon resection, history of MS from 1988, recurrent UTI with renal calculi, depression. CURRENT MEDICATIONS: The patient is on: 1. Doxepin 25 mg p.o. daily. 2. Bupropion extended release 150 mg p.o. daily. 3. Rizatriptan p.r.n. 4. Fish oil 1000 mg p.o. daily. 5. Vitamin B12 of 1000 mcg p.o. daily. 6. Vitamin D3 daily. 7. Vitamin C daily. 8. Repatha 140 mg subcutaneous injection once every 21 days. 9. Fingolimod 0.5 mg p.o. daily. 10. Cymbalta 60 mg p.o. daily. 11. Oxybutynin 5 mg p.o. twice daily. 12. Lisinopril 10 mg daily. 13. Meclizine 25 mg p.r.n. 14. Ultram p.r.n. for pain. 15. Iron 18 mg daily. 16. Hydroxyzine p.r.n. ALLERGIES: TO CEFTRIAXONE, WHICH CAUSES ANGIOEDEMA; STATINS; CLINDAMYCIN. PERSONAL HISTORY: Does not abuse alcohol or drugs. No history of smoking. Lives with her . FAMILY HISTORY: Cannot be obtained as the patient is not awake and oriented now. CODE STATUS: Full. Power of busperson is her . REVIEW OF SYSTEMS: Cannot be obtained as the patient is encephalopathic at present. PHYSICAL EXAMINATION: GENERAL: The patient is a 64-year-old female, who is currently encephalopathic. VITAL SIGNS: Blood pressure 116/74, pulse 80 per minute, respiratory rate is 26 per minute, temperature 99 degrees Fahrenheit, and saturating 93% on 3 L nasal cannula. NECK: Supple. No elevated JVD. EYES: Pupils are sluggishly reacting to light. ORAL CAVITY: Mucous membranes are dry. No exudates or congestion. CARDIOVASCULAR SYSTEM: S1 and S2 heard. RESPIRATORY SYSTEM: Air entry 1+ bilateral. Scattered rhonchi plus. No wheezes. ABDOMEN: The patient has a colostomy bag with stool in it. Has a suprapubic catheter, which has bloody urine in it. Bowel sounds are heard. No rigidity or guarding. EXTREMITIES: All 4 extremities have contractures. Lower extremities, there is flexion contracture at the knee. Peripheral pulses are barely felt in the lower extremities, upper extremities 1+ bilateral. CENTRAL NERVOUS SYSTEM: The patient has fairly advanced MS with contractures of all extremities. PSYCHIATRIC: Cannot be assessed as the patient is currently encephalopathic. LABORATORY DATA: Blood gas done shows a pH of 7.27, pCO2 of 44, pO2 of 79, bicarb of 19. Blood gas potassium is 3.95, sodium is 141, chloride on the blood gas is 110, this is on 40% FiO2. Chest x-ray done postprocedure shows no acute infiltrate. CLINICAL IMPRESSION AND PLAN: The patient will be admitted to ICU for postprocedure encephalopathy and acute respiratory failure with hypoxia. We will obtain blood and urine cultures. The patient has had multiple organisms growing in urine cultures in the past. She has had resistant organisms as well. In view of this and antibiotic allergies, the patient will be placed on vancomycin and meropenem for now. It is unclear if the patient has had instrumentation-related transient bacteremia. She also has advanced multiple sclerosis and has contractures of all 4 extremities with likely limitations in her respiratory muscle usage, diaphragm, and abdominal musculatures to help her breathe in addition to having a colostomy as well. Dr. Osborne is here evaluating the patient as well. Dr. Ware is at bedside as well. The patient's is also at bedside. He is clearly aware of current situation. Her overall prognosis is guarded. She had general anesthesia and came out of it and apparently was oriented postprocedure extubation, but slowly drifted back. Lab works are pending at present. We will closely monitor her in ICU. 100 mg IV one dose of hydrocortisone has been given. She will be on DuoNebs q.4 hourly, Cymbalta home dose at bedtime if she wakes up, same with fingolimod as well. Rest of her home medications can be held until she is fully awake. If she wakes up, she can be given clear liquid diet. She has received a total of 2 L of IV fluid postprocedure and likely might get another liter depending on how she is clinically. Job ID: [id number]
[2020-07-29] MEDS ORDERED: Sodium Chloride 0.9% 10 ML ONE (17:59)
[2020-07-29] MEDS: MEROPENEM 1 GM/50 ML 1 GM in Premix Bag 1 BAG IVPB SCH (18:45)
[2020-07-29] MEDS: Famotidine/PF 20 mg/2ml Vial SLOW IVP SCH (21:19)
[2020-07-29] MEDS: DULoxetine 60 MG CAP PO SCH (21:22)
[2020-07-29] MEDS: Sodium Bicarbonate 70 MEQ in Sodium Chloride 0.45% 1,000 ML IVP SCH (21:23)
--- NOTE | 2020-07-29 21:58 | CON ---
DATE OF CONSULTATION: 07/29/2020 CONSULTING PHYSICIAN: Dr. Bailey. REASON FOR CONSULTATION: Postoperative metabolic acidosis. HISTORY OF PRESENT ILLNESS: Lui Maciel is a 64-year-old female with multiple sclerosis and many associated problems. She was here today for a cystoscopy by Dr. Ware. She was put under general anesthesia for the procedure. She was extubated afterwards. She has been then here now for about 3-1/2 hours. She is moaning and groaning. Does not seem to have any specific pain, but is having a difficult time recovering. She had an ABG, which demonstrated metabolic acidosis, which I would characterize as mild as it looks like on old chemistries, she has chronic metabolic acidosis, which is likely from her colostomy situation. Findings from the operation today demonstrated right renal calculi. She had a retrograde pyelogram performed with ureteral stent placement. She also had evacuation of bladder stones and exchange of her suprapubic catheter. Laser lithotripsy was applied to the right renal calculi. Dr. Ware tells me that the patient has a history of chronic bacterial infection from the stones, which ordinarily does not require treatment. PAST MEDICAL HISTORY: 1. Multiple sclerosis. 2. Neurogenic bladder. 3. Bowel and bladder incontinence. 4. Nephrolithiasis. 5. Renal cyst. 6. Bladder stones. 7. Urinary tract infections. 8. Anemia of chronic disease. PAST SURGICAL HISTORY: 1. Suprapubic catheter placement. 2. Colostomy. 3. Subsequent revision of colostomy. 4. Cholecystectomy. 5. Transabdominal hysterectomy with bilateral salpingo-oophorectomy. 6. Gastric banding. 7. Adhesiolysis. FAMILY MEDICAL HISTORY: Unremarkable. SOCIAL HISTORY: She is a nonsmoker. Does not consume alcohol. Does not use illicit drugs. ALLERGIES: CLINDAMYCIN, ROCEPHIN. MEDICATIONS: 1. Docusate. 2. Lactulose. 3. Gabapentin. 4. Doxepin. 5. Bupropion. 6. Triptan. 7. Benzoate. 8. Fish oil. 9. Vitamin B12. 10. Vitamin D3. 11. Vitamin C. 12. Repatha. 13. Meclizine. 14. Lisinopril. 15. Iron sulfate. 16. Ibuprofen. 17. Gilenya. 18. Cymbalta. 19. Oxybutynin. REVIEW OF SYSTEMS: Difficult to obtain because the patient's mental status is not appropriate at this time. PHYSICAL EXAMINATION: VITAL SIGNS: Heart rate 120 to 130, blood pressure 160/55, O2 saturation 97% on 40% face mask, temperature 37.2 Celsius. GENERAL: She will answer some simple questions for me, not appear to be in overt respiratory distress. HEENT: Remarkable for dry oral mucous membranes. NECK: No adenopathy or JVD. LUNGS: Clear anteriorly. CARDIOVASCULAR: S1 and S2. Slightly tachycardic. ABDOMEN: There is a colostomy present on the right side. She has a suprapubic catheter in the lower abdominal region. EXTREMITIES: She has contractures throughout arms, legs, hands, feet. IMAGING: Her chest x-ray shows gastric distention. I see no acute infiltrates. LABORATORY DATA: An ABG demonstrates pH 7.27, pCO2 of 44, and pO2 of 79. Sodium 141, potassium 3.9, chloride 110, calculated bicarbonate not posted on the ABG. Chemistry and CBC are pending. ASSESSMENT: This is a 64-year-old with multiple sclerosis who is having difficulty post anesthesia. Differential diagnosis in this case could be just reaction from anesthesia. Sepsis is a concern given she had instrumentation and manipulation of stones. RECOMMENDATION: 1. I do not think the patient needs to be intubated at this time. Instead, I would correct her metabolic acidosis with a bicarbonate drip. She was given a total of 100 mEq of sodium bicarbonate in the postanesthesia care unit. 2. Monitor closely in the CCU overnight. 3. Monitor labs. 4. GI prophylaxis with Pepcid. 5. Hold anticoagulation as she is having fairly profound hematuria after instrumentation. 6. Consider CPAP or BiPAP only if the patient worsens. 7. Discussed with physicians involved. Thank you for the referral. The above encompassed 45 minutes of critical care time. Job ID: [id number]
--- NOTE | 2020-07-29 23:20 | CON ---
DATE OF CONSULTATION: 07/29/2020 HISTORY OF PRESENT ILLNESS: Ms. Maciel is a pleasant 64-year-old female, previously followed by urologist in [place], in which she had received a suprapubic tube back in 2008 for neurogenic bladder. She has had a chronic SP tube since then, also has a diverting colostomy. She does have prior history of sepsis, and has chronic bacteriuria as anticipated due to SP tube. she transitioned her care to [place], few months ago, has had issues with incrustation of her suprapubic tube. She has been up sized to 24-Spanish, which requires interval exchanges. Staging CT demonstrated multiple stone debris in the right collecting system. Although, nonobstructing, eminent issue can be of concern as it is in the renal pelvis. Stone is linear, however, in craniocaudal dimension measures about 1 cm x 3 to 4 mm. She also has punctate stones in the kidney as well and also bladder calculi. She presents today for treatment of her renal calculi, as this can be common issue at a later point and she desired to proceed with elective treatment of her renal calculi. She has had chronic SP tube, as expected she has polymicrobial organism in her urine culture. There was multiple resistance; however, she was provided Zosyn based on sensitivity. She underwent surgery uneventful today, her bladder stone debris was evacuated , as well as laser lithotripsy of her multiple right renal calculi. I was informed few hours after, that she is hypoxic, subsequently urgent pulmonology, and hospitalist consultation was obtained. She had been triaged by multiple anesthesiologists, and was treated accordingly for her hypoxia. However, as I was consulted, concern regarding her respiratory distress, moreover, concern of early sepsis, advised regarding medical admission and optimization. has been informed regarding her clinical course. PAST MEDICAL HISTORY: Includes multiple sclerosis diagnosed in 1988, neurogenic bladder secondary to MS, suprapubic tube dependent, history of bowel and stool incontinence status post diverting colostomy, renal cysts, recurrent UTI, anemia of chronic illness, and depression. PAST SURGICAL HISTORY: 1. Suprapubic tube by Dr. Wong in 2008. 2. Revision of colostomy at [facility] in October 2019. 3. Status post cholecystectomy. 4. TAHBSO. 5. Gastric banding. 6. Colostomy. 7. Lysis of adhesions. 8. Colon resection, Dr. Duran on May 27, 2020. FAMILY HISTORY: Noncontributory. SOCIAL HISTORY: She is a nonsmoker, disabled, wheelchair bound due to MS. Her is her primary quality assurance assessor. ALLERGIES: ALLERGIC TO CLINDAMYCIN CAUSES ANAPHYLAXIS, ROCEPHIN CAUSES MOUTH SWELLING. PRIOR ADMISSION TO THE HOSPITAL DUE TO SEPSIS IN THE PAST. REVIEW OF SYSTEMS: 10-point review of systems as above, otherwise noncontributory. PHYSICAL EXAMINATION: VITAL SIGNS: She is examined in PACU, she is tachypneic, tachycardia at 128, blood pressure is 150/64. She is 96% on 6 L. GENERAL: The patient appears to have encephalopathy, arousable. HEENT: Suboptimal as she has encephalopathy. Pupils are reactive. Oral cavity is dry. HEART: Regular rate. LUNGS: Scattered rhonchi, however no wheezing is appreciated. ABDOMEN: Status post colostomy bag with stool. Suprapubic tube catheter demonstrating hematuria due to recent laser lithotripsy. No rigidity. No rebound. No CVA tenderness is appreciated. EXTREMITIES: Demonstrates bilateral lower extremity contracture as previous. BEHAVIORAL HEALTH CONSULTANT: Difficult to assess at this time. PSYCHIATRIC: Cannot be assessed at this time due to her encephalopathy. PERTINENT LABORATORY DATA: White count 6, hemoglobin 10, platelet 210. Creatinine 0.86. ABG was ordered by Pulmonology and metrology manager. IMPRESSION AND PLAN: 1. Ms. Maciel is a 64-year-old female with history of chronic bacteriuria. 2. History of multiple sclerosis. 3. History of bowel and stool incontinence. 4. History of renal calculi, postop day #0 status post ureteroscopy, laser lithotripsy, and evacuation of bladder stones. Respiratory distress, encephalopathy appropriate specialist has been notified. Dr. Osborne has seen the patient and does not feel the patient needs to be intubated at this time, however, warrants ICU evaluation. Medical resuscitation with broad-spectrum antibiotics. Meropenem and vancomycin provided. will consult Infectious Disease. Family has been informed regarding her clinical course and need for hospital admission. Extensive time spent with the patient and family at bedside, coordinating care. Appreciate hospitalist, pulmonology persistence. Sepsis from transient bacteremia is differential diagnosis. Job ID: [id number] [facility]
[2020-07-30] MEDS: MEROPENEM 1 GM/50 ML 1 GM in Premix Bag 1 BAG IVPB SCH ×2 (01:16→08:17)
[2020-07-30 03:58] LABS: Band 34 % (5-11); Hemoglobin 10.8 g/dL (12.0-16.0); Hypochromia SLIGHT = 6-15 cells (100X) (0-5/hpf); Lymphocytes 1 % (21-51); MDiff Complete? YES; Mean Corpuscular HGB CONC 33.9 g/dL (32.0-36.0); Mean Corpuscular Hemoglobin 29.4 pg (27.0-31.0); Mean Corpuscular Volume 86.8 fL (78.0-98.0); Mean Platelet Volume 7.8 fL (7.4-10.4); Metamyelocyte 2 % (0-0); Monocytes 18 % (0-10); Neutrophil 45 % (42-75); Platelet Count 131 thou/uL (130-400); Platelet Morphology Comment Appears Adequate; RBC Distribution Width 13.8 % (11.5-14.5); Red Blood Cell (RBC) Count 3.68 mill/uL (4.20-5.40); Vacuoles SLIGHT; White Blood Cell (WBC) Count 35.4 thou/uL (4.8-10.8)
[2020-07-30 04:01] LABS: ALT (SGPT) 418 U/L (8-55); AST (SGOT) 639 U/L (5-34); Albumin 2.9 g/dL (3.4-4.8); Alkaline Phosphatase 163 U/L (40-110); Anion Gap 18 mmol/L (10-20); BUN (Urea Nitrogen) 25 mg/dL (9.8-20.1); Bilirubin, Total 0.8 mg/dL (0.2-1.2); Calc. Creatinine Clearance 45 mL/min (70-130); Calcium 7.7 mg/dL (7.8-10.44); Carbon Dioxide 23 mmol/L (23-31); Chloride 107 mmol/L (98-107); Globulin 2.7 g/dL (2.4-3.5); Glucose 134 mg/dL (80-115); Potassium 3.2 mmol/L (3.5-5.1); Protein, Total 5.6 g/dL (6.0-8.3); Sodium 145 mmol/L (136-145)
[2020-07-30] MEDS: Sodium Bicarbonate 70 MEQ in Sodium Chloride 0.45% 1,000 ML IVP SCH ×2 (04:33→12:40)
[2020-07-30] MEDS ORDERED: Vancomycin 1 GM in Premix Bag 1 BAG IVPB SCH (05:00)
--- NOTE | 2020-07-30 07:43 | PRG ---
DATE OF SERVICE: 07/30/2020 SUBJECTIVE: Patient more alert, mental status improved. Events over the last 24 hours reviewed with the patient in detail. States that she is feeling hot/warm, however, denies chills or significant flank or abdominal pain. OBJECTIVE: VITAL SIGNS: T-max of 100.3, T-current 100, blood pressure stable 115/83, 95% on room air, heart rate 120. I's and O's 1595 in, urine output 1657 with gross hematuria. She is positive 3.4 L. GENERAL: The patient appears fatigued, responsive. ABDOMEN: Soft. No rigidity. No rebound. Suprapubic tube draining leger red urine; however, transparent. No clots seen. EXTREMITIES: Contracted. PERTINENT LABORATORY DATA: White count 35, hemoglobin 10.8, stable from postop, platelets 134, 34 bands. Creatinine 0.23. LFTs elevated consistent with SIRS. Blood culture obtained from PACU, pending. Currently, on meropenem and vancomycin. IMPRESSION AND PLAN: Ms. Maciel is a 64-year-old female with: 1. History of multiple sclerosis. 2. Chronic suprapubic tube. 3. History of kidney, bladder calculi. Postop day #1, status post cysto evacuation of bladder stone, suprapubic tube exchange, right ureteroscopy, laser lithotripsy. 4. Preop urine culture demonstrates polymicrobial culture consistent with chronic SP tube colonized. It was appropriately addressed with appropriate sensitivity. Despite this, she is admitted, with septic parameters. Clinically, she has improved with resuscitation. Appreciate tack cutter and Medical Service . Await Infectious Disease consult. Continue supportive care. From my perspective, patient can be transferred out of the ICU when cleared by tack cutter. Anticoagulation contraindicated until hematuria resolves. Monitor daily labs. Job ID: [id number] MTDD
[2020-07-30] MEDS ORDERED: Potassium Chloride 20 MEQ TAB PO SCH (08:15)
[2020-07-30] MEDS: Famotidine/PF 20 mg/2ml Vial SLOW IVP SCH (08:17)
--- NOTE | 2020-07-30 08:34 | PRG ---
DATE OF SERVICE: 07/30/2020 SUBJECTIVE: The patient is awake. She can answer some questions. Does not appear to be in any overt distress. OBJECTIVE: VITAL SIGNS: Temperature is 100.0 with a T-max of 100.3, pulse 120, blood pressure 115/83, and O2 saturation 95%. HEENT: Unremarkable. NECK: No JVD. LUNGS: Fairly clear anteriorly. CARDIOVASCULAR: S1 and S2, slightly tachycardic. ABDOMEN: Soft and nontender to palpation. Colostomy noted. She has hematuria coming from her suprapubic catheter. EXTREMITIES: No edema. LABORATORY DATA: Sodium 145, potassium 3.2, chloride 107, CO2 of 23, BUN 25, creatinine 1.2, glucose 134. White blood cell count 35.4, hematocrit 31.9, and platelet count 131. ASSESSMENT: 1. Sepsis syndrome. 2. Transaminitis. 3. Status post cystoscopy and associated urologic procedures yesterday. 4. Metabolic acidosis, improved with bicarbonate drip. PLAN: 1. She could transfer to [facility]. 2. I will go ahead and replace her potassium. 3. Continue antibiotics. 4. Dr. Jose has been consulted. 5. Change to half-normal saline after the bicarb infusion is completed later this afternoon. Job ID: [id number]
[2020-07-30] MEDS ORDERED: Enoxaparin Sodium 40 MG/0.4 ML SYRINGE SC SCH (09:00)
[2020-07-30] MEDS: Sodium Chloride 0.45% 1,000 ML IV SCH ×2 (09:49→18:27)
[2020-07-30] MEDS ORDERED: Sodium Bicarbonate 70 MEQ in Sodium Chloride 0.45% 1,000 ML IVP SCH (13:00)
[2020-07-30] MEDS ORDERED: VANC IVPB PRN (13:12)
[2020-07-30] MEDS ORDERED: [UNRECOGNIZED DRUG - OTHER] IVPB PRN (13:12)
[2020-07-30] MEDS: Piperacillin/Tazobactam 4.5 GM in Sodium Chloride 0.9% 100 ML IVPB SCH (18:25)
--- NOTE | 2020-07-30 18:32 | CON ---
DATE OF CONSULTATION: 07/30/2020 REASON FOR CONSULTATION: Sepsis, possible urosepsis. HISTORY OF PRESENT ILLNESS: A 64-year-old who has a history of multiple sclerosis for about 25 years and has developed a neurogenic bladder, which led to complications which have required a suprapubic catheter placement as well as a colostomy because of incontinence and skin breakdown, so the colostomy was initially done at [facility] for diversion purposes and had to be revised by Dr. Duran this year. The patient has developed complications associated with the suprapubic catheter with incrustation of suprapubic tube, development of stone burden in the renal collecting system, right side. She had a linear stone measuring 1 cm x 40 mm and then punctate stones in the renal collecting system. The bladder stone debris was evacuated and she had right renal calculi removed by lithotripsy and she developed sepsis after that. She was transferred to the [facility]. Currently, Ms. Maciel is awake. She is feeling better. She has moderate headache, frontal mostly. No sore throat, odynophagia dysphagia. No dyspnea or cough. No abdominal pain. She is quadriparetic. She has venous stasis in the lower extremities. No areas of skin breakdown. PAST MEDICAL HISTORY: MS for 25 years, quadriparesis, neurogenic bladder, nephrolithiasis and bladder lithiasis, incontinence of stool requiring diversion colostomy. She had a cholecystectomy, total abdominal hysterectomy, gastric banding. ALLERGIES: CEFTRIAXONE, CLINDAMYCIN, STATINS. CURRENT MEDICATIONS: Inhaler, Dulcolax, Cymbalta, Pepcid, Robitussin, meropenem, Zofran, Senokot, vancomycin. FAMILY HISTORY: Noncontributory. PHYSICAL EXAMINATION: VITAL SIGNS: T-max 100.2, she is now 97.6, blood pressure 112/57, heart rate 108, O2 saturation 95% on 4 L nasal cannula. SKIN: Shows the colostomy in right upper quadrant. Suprapubic catheter exit site normal. Peripheral IV access. She has no areas of skin breakdown otherwise. No lymphadenopathy. HEENT: Ocular movements conjugate. Oral cavity somewhat dry. NECK: No neck tenderness. No jugular vein distention. LUNGS: Symmetric, clear breath sounds. HEART: S1, S2. Regular rate without murmurs. No S3 or S4. ABDOMEN: Soft, flat, nondistended. No ascites. No bladder distention. EXTREMITIES: Quadriparesis. She is able to move her upper extremities better than the lower. She has evidence of venous stasis in lower extremities. No edema. Pulses, 1+ dorsalis pedis. NEUROLOGIC: She is awake, oriented. A little bit of weakness with her word enunciation, which causes a little bit of dysarthria, but her understanding is normal. LABORATORY DATA: White cell count was 6.1, is up to 35.4; hemoglobin is at 10.8; platelets 131; 45% neutrophils; and 34% bands. Blood gas; pH 7.27, pCO2 of 44, pO2 of 79. Creatinine 1.23. AST 639, ALT 418, alkaline phosphatase 163, bilirubin normal. IMAGING STUDIES: Include a chest x-ray, which showed normal heart size. Lungs without focal areas of consolidation. Abdomen and pelvis CT from May 26, 2020, with high-grade stenosis in the ostomy. This was before the revision of the colostomy. ASSESSMENT: Chronic progressive multiple sclerosis with quadriparesis. Complications related to chronic suprapubic catheter for management of neurogenic bladder with nephrolithiasis, which led to the procedure. Before the procedure, patient had colonization of the urinary sample from July 20 by Providencia, Citrobacter, Proteus, Pseudomonas, and Morganella. The susceptibilities indicated alvarez-susceptibility to amikacin, ceftriaxone, gentamicin, and Zosyn. In May, she had Proteus, Morganella, and Pseudomonas, again with even better susceptibilities than the ones just described. DISCUSSION: Patient had the procedure and became septic, and we will go ahead and switch her to Zosyn instead of meropenem. Pseudomonas aeruginosa can develop resistance to Meropenem in the course of treatment due to permeability issues and one of the potential pathogens identified does not have susceptibility confirmed to Merrem. Discontinue vancomycin since we do not have any yield suggestive of Staphylococcus aureus or any other gram-positive organisms. Duration of therapy will not be long now that the procedure has been completed unless there is a plan for another intervention in the upcoming days to weeks. Job ID: [id number] MTDD
[2020-07-30] MEDS ORDERED: MEROPENEM 1 GM/50 ML 1 GM in Premix Bag 1 BAG IVPB SCH (21:00)
[2020-07-30] MEDS: DULoxetine 60 MG CAP PO SCH (21:15)
[2020-07-30] MEDS: traMADol HCl 50 MG TAB PO PRN (21:16)
[2020-07-31] MEDS: Piperacillin/Tazobactam 4.5 GM in Sodium Chloride 0.9% 100 ML IVPB SCH ×5 (04:02→22:21)
[2020-07-31] MEDS: Sodium Chloride 0.45% 1,000 ML IV SCH ×2 (04:35→16:08)
[2020-07-31 04:58] LABS: Anion Gap 15 mmol/L (10-20); BUN (Urea Nitrogen) 25 mg/dL (9.8-20.1); Calc. Creatinine Clearance 50 mL/min (70-130); Calcium 7.5 mg/dL (7.8-10.44); Carbon Dioxide 26 mmol/L (23-31); Chloride 105 mmol/L (98-107); Glucose 82 mg/dL (80-115); Potassium 3.2 mmol/L (3.5-5.1); Sodium 143 mmol/L (136-145)
[2020-07-31] MEDS ORDERED: Vancomycin 1 GM in Premix Bag 1 BAG IVPB SCH (05:00)
[2020-07-31 05:14] LABS: Band 48 % (5-11); Hemoglobin 9.4 g/dL (12.0-16.0); MDiff Complete? YES; Mean Corpuscular HGB CONC 33.2 g/dL (32.0-36.0); Mean Corpuscular Hemoglobin 28.3 pg (27.0-31.0); Mean Corpuscular Volume 85.3 fL (78.0-98.0); Mean Platelet Volume 9.4 fL (7.4-10.4); Metamyelocyte 1 % (0-0); Monocytes 7 % (0-10); Neutrophil 44 % (42-75); Platelet Count 104 thou/uL (130-400); Platelet Morphology Comment Appears Decreased; RBC Distribution Width 13.9 % (11.5-14.5); White Blood Cell (WBC) Count 25.6 thou/uL (4.8-10.8)
--- NOTE | 2020-07-31 07:56 | PRG ---
DATE OF SERVICE: 07/31/2020 SUBJECTIVE: The patient is feeling much better, alert, coherent. OBJECTIVE: VITAL SIGNS: Stable. She has been afebrile for about 24 hours, T-current is 97, heart rate 100, 127/82, 97%. GENERAL: Patient alert, oriented x3. Events of the last few days updated with the patient. HEART: Heart rate 100, tachycardic. LUNGS: Clear. ABDOMEN: Soft. She denies flank pain, no rigidity, no rebound. : Suprapubic tube is adequately secured with some pink-tinged urine. EXTREMITIES: Contracted. PERTINENT LABORATORY DATA: White count 25, hemoglobin 9.4, platelets 104. Creatinine is 1.1. I's and O's 2386 in, 2270 out. Blood culture negative. Urine culture negative. IMPRESSION AND PLAN: 1. Ms. Maciel is a pleasant 64-year-old female with history of multiple sclerosis with chronic fecal and urinary incontinence. 2. History of diverting colostomy. 3. Chronic suprapubic tube. 4. 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 5. Multiple right renal calculi. Postop day #2, status post cystosuprapubic tube exchange, evacuation of bladder stones, laser lithotripsy of ureteral calculi, stent placement. The patient required admission due to septic syndrome. Her repeat cultures as above are negative. Appreciate Infectious Disease consult. RECOMMENDATION: From my perspective, when patient is medically cleared by Infectious Disease /hospiitlist can be discharged . Pending followup CT sometime next week, this will dictate if she will have further surgical intervention, which I would defer for few weeks given her current status. As such, I will need to discuss with Dr. Jose regarding course of her antibiotics. addendum.: Conference with Dr. Jose, agree with PICC line, and IV antibiotics for a few weeks. Patient will likely stay in house over the weekend to coordinate placement, PICC line. Long discussion with her , he himself is recovering from a broken arm, relates that he is unable to take care of the patient home with home health for IV antibiotic. She has had previous sepsis requiring [facility] facility placement for PICC line IV antibiotic therapy which he prefers placement. Patient informed as well. CT angio reviewed with radiologist, no evidence of acute pulmonary embolus. Incidental pneumonitis. As her urine output has cleared, noni pink-tinged today, DVT prophylaxis with Lovenox may be provided. Expect intermittent hematuria with DVT prophylaxis. Informed casework supervisor, that they may proceed with working on placement. [facility] covering me this weekend. Anticipate she will stay in house over the weekend, as placement is pending. Job ID: [id number] MTDD
[2020-07-31] MEDS: Famotidine/PF 20 mg/2ml Vial SLOW IVP SCH (08:47)
--- NOTE | 2020-07-31 09:38 | PRG ---
DATE OF SERVICE: 07/31/2020 SUBJECTIVE: The patient is fully awake, oriented, appears to be doing well. OBJECTIVE: VITAL SIGNS: Temperature 97.3, pulse 97, blood pressure , O2 saturation 94%. HEENT: Unremarkable. NECK: No JVD. CHEST: Clear. CARDIOVASCULAR: S1 and S2, regular. ABDOMEN: Protuberant. EXTREMITIES: No edema. LABORATORY DATA: White blood cell count 25.6, hematocrit 28.2, and platelet count 104. Sodium 143, potassium 3.2, BUN 25, creatinine 1.1, glucose 82. ASSESSMENT: 1. Status post altered mental status after anesthesia. 2. Multiple sclerosis. 3. Possible sepsis. PLAN: The patient is stable for next level of care. I will defer to Infectious Disease as to how long and what to use to treat possible underlying infection. No further pulmonary recommendations. We will sign off the case. Job ID: [id number]
--- NOTE | 2020-07-31 11:17 | PDOC.HOSPP ---
- Subjective Encounter Date: 07/30/20 Encounter Time: 15:35 Subjective: This is a late progress note for July 30, 2020 visit. This is a 64-year-old female who was admitted by urology for cystoscopy. She was transferred to [facility] after her procedure due to a change from her baseline. She was felt to be developing some form of sepsis. Her pertinent medical history includes multiple sclerosis who is now wheelchair-bound. She had cultures collected and empiric IV antibiotic was started. ID services were consulted and so was pulmonary services as well. - Objective Vital Signs & Weight: Vital Signs (12 hours) Temp Pulse Resp Pulse Ox 07/31/20 07:38 97.3 F L 07/31/20 06:58 94 15 95 07/31/20 04:50 97.4 F L 07/31/20 00:39 97.7 F 07/31/20 00:38 90 L Weight Weight 138 lb 3.677 oz Most Recent Monitor Data Heart Rate from ECG 101 NIBP 143/82 NIBP BP-Mean 102 Respiration from ECG 24 SpO2 93 I&O: 07/30/20 07/31/20 08/01/20 06:59 06:59 06:59 Intake Total 5095 2386 Output Total 1657 2270 Balance 3438 116 Result Diagrams: 07/31/20 03:45 07/31/20 03:45 Radiology Reviewed by me: Yes EKG Reviewed by me: Yes Hospitalist ROS - Review of Systems ROS unobtainable: due to mental status Constitutional: reports: weakness, malaise Gastrointestinal: reports: nausea, vomiting Neurological: reports: weakness, numbness - Medication Medications: Active Medications Generic Name Dose Route Start Last Admin Trade Name Freq PRN Reason Stop Dose Admin Albuterol/Ipratropium 3 ml 07/29/20 19:00 07/31/20 06:58 Ipratropium/Albuterol Sulfate 3 Ml Neb NEB 3 ml [id number] ANTONIO Administration Duloxetine HCl 120 mg 07/29/20 21:00 07/30/20 21:15 Duloxetine 60 Mg Cap PO 120 mg HS ANTONIO Administration Famotidine 20 mg 07/31/20 09:00 07/31/20 08:47 Famotidine/Pf 20 Mg/2ml Vial SLOW IVP 20 mg 0900 ANTONIO Administration Sodium Chloride 1,000 mls @ 100 mls/hr 07/30/20 08:15 07/31/20 04:35 1/2 Normal Saline IV 1,000 mls .Q10H ANTONIO Administration Piperacillin Sod/Tazobactam 100 mls @ 200 mls/hr 07/30/20 18:00 07/31/20 04:35 Sod 4.5 gm/ Sodium Chloride IVPB 100 mls Q6HR ANTONIO Administration Tramadol HCl 50 mg 07/30/20 21:00 07/30/20 21:16 Tramadol Hcl 50 Mg Tab PO 50 mg Q6H PRN Administration Moderate Pain (4-6) - Exam General Appearance: NAD, awake alert, ill appearing Eye: PERRL, anicteric sclera ENT: normocephalic atraumatic, no oropharyngeal lesions, moist mucosa Neck: supple, symmetric, no JVD, no thyromegaly Heart: RRR, no murmur, no gallops, no rubs, normal peripheral pulses Respiratory: CTAB, no wheezes, no rales, no ronchi, normal chest expansion Gastrointestinal: soft, non-tender, non-distended, normal bowel sounds Neurological: cranial nerve grossly intact, normal sensation to touch Musculoskeletal: normal tone, normal strength, generalized weakness, diffuse muscle atrophy Musculoskeletal - other findings: she is wheelchair bound Psychiatric: normal affect, normal behavior, A&O x 3 Hosp A/P - Plan continue antibiotics, PT/OT, DVT proph w/lovenox 1 Sepsis. Present on admission. She was febrile and her white count was 35,000. It was felt that the source of sepsis is her urine. Cultures were collected and she was placed on IV antibiotic and ID services were consulted. #2. Transaminitis. Unclear etiology. She told me she already had her gallbladder taken out. We will monitor this closely. We will consider CT of the abdomen and pelvis. #3. Neurogenic bladder. Likely a complication of her multiple sclerosis. She does have a suprapubic catheter and follows up with urology on outpatient basis. 4. Nephrolithiasis. She is status post cystoscopy with retrograde pyelogram. She also ended up with a double-J ureteral stent and evacuation of bladder stones in addition to laser lithotripsy. She has been cleared by urology to discharge home pending ID antibiotic recommendations.
[2020-07-31] MEDS ORDERED: Metoprolol Tartrate 50 MG TAB PO SCH (12:15)
[2020-07-31] MEDS ORDERED: Iopamidol 370 76% 100 ML VIAL ONE (14:08)
--- NOTE | 2020-07-31 14:25 | PDOC.HOSPP ---
- Subjective Encounter Date: 07/31/20 Encounter Time: 14:23 Subjective: This patient is more awake and alert today. This is an unfortunate 64-year-old who is ravaged by complications of multiple sclerosis who currently is bed and wheelchair bound was admitted to the hospital by urology and she underwent cystoscopy and ureteral stent placement. She unfortunately developed what appears to be urosepsis post her procedure. She developed fever and her white count was significantly elevated. Urine cultures were collected from her suprapubic catheter and so far this is negative to date. Her blood cultures are also negative. She is being followed by ID services who started her on Zosyn. There is ongoing plan for her to go home on antibiotics which will be arranged through the ID services clinic. Today on my exam she was tachycardic and mildly dyspneic. Her D-dimer was significantly elevated and I worry that she may have a venous thromboembolism. She is mostly wheelchair and bedbound due to her ongoing MS. We will proceed with CTA of the chest with PE protocol. - Objective Vital Signs & Weight: Vital Signs (12 hours) Temp Pulse Resp Pulse Ox 07/31/20 11:25 101 H 22 H 95 07/31/20 11:23 99.0 F 07/31/20 07:38 97.3 F L 07/31/20 06:58 94 15 95 07/31/20 04:50 97.4 F L Weight Weight 138 lb 3.677 oz Most Recent Monitor Data Heart Rate from ECG 109 NIBP 145/96 NIBP BP-Mean 112 Respiration from ECG 35 SpO2 96 I&O: 07/30/20 07/31/20 08/01/20 06:59 06:59 06:59 Intake Total 5095 2386 Output Total 1657 2270 Balance 3438 116 Result Diagrams: 07/31/20 03:45 07/31/20 03:45 Radiology Reviewed by me: Yes EKG Reviewed by me: Yes Hospitalist ROS - Review of Systems ROS unobtainable: due to mental status Constitutional: reports: weakness, malaise Gastrointestinal: reports: nausea - Medication Medications: Active Medications Generic Name Dose Route Start Last Admin Trade Name Freq PRN Reason Stop Dose Admin Albuterol/Ipratropium 3 ml 07/29/20 19:00 07/31/20 14:10 Ipratropium/Albuterol Sulfate 3 Ml Neb NEB Not Given [id number] ANTONIO Duloxetine HCl 120 mg 07/29/20 21:00 07/30/20 21:15 Duloxetine 60 Mg Cap PO 120 mg HS ANTONIO Administration Famotidine 20 mg 07/31/20 09:00 07/31/20 08:47 Famotidine/Pf 20 Mg/2ml Vial SLOW IVP 20 mg 0900 ANTONIO Administration Sodium Chloride 1,000 mls @ 100 mls/hr 07/30/20 08:15 07/31/20 04:35 1/2 Normal Saline IV 1,000 mls .Q10H ANTONIO Administration Piperacillin Sod/Tazobactam 100 mls @ 200 mls/hr 07/30/20 18:00 07/31/20 11:30 Sod 4.5 gm/ Sodium Chloride IVPB 100 mls Q6HR ANTONIO Administration Tramadol HCl 50 mg 07/30/20 21:00 07/30/20 21:16 Tramadol Hcl 50 Mg Tab PO 50 mg Q6H PRN Administration Moderate Pain (4-6) - Exam General Appearance: NAD, awake alert Eye: PERRL, anicteric sclera ENT: normocephalic atraumatic, no oropharyngeal lesions Neck: supple, symmetric, no JVD, no thyromegaly Heart: RRR, no murmur, no gallops, no rubs, normal peripheral pulses Respiratory: CTAB, no wheezes, no rales, no ronchi, normal chest expansion Gastrointestinal: soft, non-tender, non-distended, normal bowel sounds Neurological: no new deficit Musculoskeletal: generalized weakness, diffuse muscle atrophy Psychiatric: normal affect, normal behavior, A&O x 3 Hosp A/P - Plan plan discussed w/ family, continue antibiotics, PT/OT 1 Sepsis. Present on admission. She was febrile and her white count was 35,000. It was felt that the source of sepsis is her urine. Cultures were collected and she was placed on IV antibiotic and ID services were consulted. 07/31/2020. Sepsis appears to have resolved. Cultures are negative to date. I will continue her on antibiotics. Will defer to ID services about adjustment of the antibiotics. #2. Transaminitis. Unclear etiology. She told me she already had her gallbladder taken out. We will monitor this closely. She denied no abdominal pain. We will consider CT of the abdomen and pelvis. #3. Neurogenic bladder. Likely a complication of her multiple sclerosis. She does have a suprapubic catheter and follows up with urology on outpatient basis. 4. Nephrolithiasis. She is status post cystoscopy with retrograde pyelogram. She also ended up with a double-J ureteral stent and evacuation of bladder stones in addition to laser lithotripsy. She has been cleared by urology to discharge home pending ID antibiotic recommendations.
--- NOTE | 2020-07-31 15:02 | CT ---
CTA Angio Chest W Con 07/31/2020 2:40 PM Indication: Elevated d-dimer, tachycardia, concern for PE Technique: Multiple CTA images were obtained of the thorax with IV contrast. 3-D rendering: MIP nerissa nstructed images were created and reviewed. Comparison: No relevant prior studies available. Findings: Pulmonary arteries: No central or segmental pulmonary embolus is evident. Heart and Aorta: There are coronary artery calcifications. There is a right-sided PICC line in place . Mediastinum:Normal appearing. No enlarged lymph nodes. Lungs:There is bibasilar atelectasis. There is some patchy nodular groundglass opacities within the r ight upper lobe. There are areas of subsegmental volume loss within the left upper lobe. There is some reticular nodular opacities within the lingula. Pleural space: There are small bilateral pleural effusions Upper Abdomen: No acute abnormality. Osseous Structures: No acute osseous abnormality. Soft tissues:No abnormality. Other findings:None. Impression: 1. No central or segmental pulmonary embolus. 2. Patchy areas of peripheral groundglass opacity in the right upper lobe may reflect airspace edema; however, an infectious pneumonitis could have a similar appearance. Recommend correlation with the clinical exam for any symptoms of fever and cough. There are reticular nodular opacities in the lingu la suspicious for a respiratory bronchiolitis. Recommend CT follow-up in 6-8 weeks to document resolution. 3. Bilateral pleural effusions and bibasilar atelectasis may reflect volume overload or CHF.
--- NOTE | 2020-07-31 16:19 | SPC ---
PICC PLACEMENT ULTRASOUND-GUIDED VENOUS ACCESS: (Peripherally inserted central catheter) DATE: 07/31/2020 HISTORY: 64-year-old female with urinary tract infection requiring long-term IV antibiotics. TECHNIQUE: Catheter caliber: 5 Egyptian Catheter trim length:44.5 cm Catheter lumen number:double Catheter tip location:Superior vena cava/right atrial junction Vein accessed:right basilic Total fluoroscopy time: 1.2 min. Dose area product: 2854 mGy*cm^2 Signed, informed consent was obtained. Initially, this was attempted at bedside in the ICU. The left basilic vein was punctured, and wire was advanced, but more superiorly in the arm, the wire entered different branches, and the procedure was unsuccessful. Therefore, the patient was later brought down to the special procedures suite, and the procedure was reattempted in the right arm. A tourniquet was applied at the proximal aspect of the right arm. The arm was prepped and draped in the usual ster ile fashion. A 25-gauge needle was used to applied buffered lidocaine superficially. The vein was punctured with a 21-gauge micropuncture needle under ultrasound guidance. A 0.018 inch guidewire was advanced through the micropuncture needle and into the vein. Under fluoroscopic guidance, the guidewire was advanced to the superior vena cava. The PICC was flushed and trimmed to the appropriate length. The micropuncture needle was exchanged over the guidewire for a 5 Egyptian peel-away dilator sheath. The dilator was exchanged over the guidewire for the PICC, which was then further advanced un andria fluoroscopy. The sheath and guidewire were removed. The PICC was flushed again and secured in place at the arm after adjustment of tip position. The patient tolerated the procedure well. There wa s no complication. IMPRESSION: Successful placement of PICC (peripherally inserted central catheter).
--- NOTE | 2020-07-31 18:13 | PRG ---
DATE OF SERVICE: 07/31/2020 SUBJECTIVE: Looks more alert. Did not eat much for dinner. No cough. No dyspnea. OBJECTIVE: VITAL SIGNS: T-max 99, BP 130/71, heart rate 69, O2 saturation 96% on 2 L nasal cannula. GENERAL: More alert when I last saw her. LUNGS: Symmetric air entry. No crackles or wheezing. HEART: S1-S2, regular rate. ABDOMEN: Soft, not distended. LABORATORY STUDIES: Sodium 143, creatinine 1.1, glucose 82. BNP was 329. Albumin 2.9, AST 639, ALT 418. White cell count is at 25.6 with 48% bands, hemoglobin 9.4. Microbiology with 2 sets of blood cultures from 2 days ago negative at 48 hours. Suprapubic catheter from the same day negative at 48 hours, the previous cultures from July 20. A chest CTA with basilar atelectases, some patchy nodular ground-glass opacities, right upper lobe and lingula. ASSESSMENT AND DISCUSSION: Chronic progressive multiple sclerosis with quadriparesis. Suprapubic catheter complications with nephrolithiasis which required intervention. Postoperatively, patient developed decompensation with sepsis. Lung changes are probably related to the sepsis with capillary leak. An additional process such as aspiration pneumonia is not yet ruled out. SARS-CoV-2 infection would be less likely. The patient is scheduled to have a subsequent procedure, so we will have to continue on Zosyn. She still has marked bandemia, but we should see stabilization and improvement going forward. Job ID: [id number]
[2020-07-31] MEDS: DULoxetine 60 MG CAP PO SCH (22:21)
[2020-07-31] MEDS: Metoprolol Tartrate 25 MG TAB PO SCH (22:21)
[2020-07-31] MEDS: Oxybutynin 5 MG TAB PO SCH (22:22)
[2020-07-31] MEDS: traMADol HCl 50 MG TAB PO PRN (22:22)
[2020-07-31] MEDS: Lisinopril 10 MG TAB PO SCH (22:23)
[2020-08-01] MEDS: Piperacillin/Tazobactam 4.5 GM in Sodium Chloride 0.9% 100 ML IVPB SCH ×3 (06:04→17:17)
[2020-08-01] MEDS: Sodium Chloride 0.45% 1,000 ML IV SCH ×3 (06:08→20:52)
[2020-08-01 06:37] LABS: Anion Gap 15 mmol/L (10-20); BUN (Urea Nitrogen) 20 mg/dL (9.8-20.1); Calc. Creatinine Clearance 55 mL/min (70-130); Calcium 7.7 mg/dL (7.8-10.44); Carbon Dioxide 24 mmol/L (23-31); Chloride 105 mmol/L (98-107); Glucose 75 mg/dL (80-115); Potassium 3.3 mmol/L (3.5-5.1); Sodium 141 mmol/L (136-145)
[2020-08-01 07:02] LABS: Band 22 % (5-11); Hemoglobin 9.6 g/dL (12.0-16.0); Lymphocytes 5 % (21-51); MDiff Complete? YES; Mean Corpuscular HGB CONC 32.8 g/dL (32.0-36.0); Mean Corpuscular Volume 85.4 fL (78.0-98.0); Mean Platelet Volume 9.6 fL (7.4-10.4); Monocytes 2 % (0-10); Neutrophil 71 % (42-75); Platelet Count 91 thou/uL (130-400); Platelet Morphology Comment Appears Decreased; RBC Distribution Width 13.7 % (11.5-14.5); Red Blood Cell (RBC) Count 3.44 mill/uL (4.20-5.40)
[2020-08-01] MEDS: Oxybutynin 5 MG TAB PO SCH ×2 (08:55→20:46)
[2020-08-01] MEDS: Ferrous Sulfate 325 MG TAB PO SCH (08:55)
[2020-08-01] MEDS: Famotidine/PF 20 mg/2ml Vial SLOW IVP SCH (08:55)
[2020-08-01] MEDS: Metoprolol Tartrate 25 MG TAB PO SCH ×2 (08:56→20:45)
[2020-08-01] MEDS: Lisinopril 10 MG TAB PO SCH ×2 (08:56→20:45)
[2020-08-01] MEDS ORDERED: Non-Formulary Item 1 EACH (Iron [Iron] 18 MG Tablet) PO SCH (09:00)
[2020-08-01] MEDS ORDERED: Enoxaparin Sodium 40 MG/0.4 ML SYRINGE SC SCH (09:00)
[2020-08-01] MEDS: Senokot S 8.6-50 MG TAB PO PRN (09:02)
--- NOTE | 2020-08-01 12:56 | PRG ---
DATE OF SERVICE: 08/01/2020 SUBJECTIVE: The patient has somewhat improved appetite and strength. She does, however, feel like "giving up." OBJECTIVE: VITAL SIGNS: Temperature 97.9, blood pressure 147/83, O2 saturation 92% on nasal cannula, respiratory rate 16, pulse 75. ABDOMEN: Soft, nontender. Stoma viable. Suprapubic tube without drainage. LABORATORY DATA: White count 21,000, down from 25.6. Hemoglobin 9.6 (stable). IMPRESSION: Improving in regard to symptoms, she is afebrile and her white count has improved somewhat. RECOMMENDATION: No further urologic recommendations at this time. Job ID: [id number]
[2020-08-01] MEDS ORDERED: Potassium Chloride 20 MEQ TAB PO SCH (13:15)
[2020-08-01] MEDS ORDERED: Electrolyte Replacement Protocol 1 EACH FS SCH (13:15)
--- NOTE | 2020-08-01 15:42 | CON ---
DATE OF CONSULTATION: 08/01/2020 HISTORY OF PRESENT ILLNESS: Ms. Maciel is a 64-year-old female with a history of multiple sclerosis and recent admission this time for urosepsis secondary to intervention from nephrolithiasis. She has been on Zosyn for many days and today, it was noticed that her platelets have fallen from normal on admission down into the 90s. Because of this, we were consulted. The patient does not report any signs of bleeding or easy bruising. No hemoptysis. No hematemesis. No gum bleeding. No nose bleeds. No hematuria at this time. She is recovering from the infection and feeling better on the antibiotics. She denies fevers or chills. She has never had this problem in the past that she reports. She has been hospitalized many times in the past and states that almost every time she has been in the hospital she has received injections to thin her blood and prevent blood clots into her abdomen. She believes these were most of the time Lovenox and I am not sure if she has ever received heparin, but she does admit that she has had injections on almost every hospitalization. She has never had low platelets. PAST MEDICAL HISTORY: 1. Multiple sclerosis. 2. Neurogenic bladder with suprapubic catheter placement. 3. History of colostomy. 4. History of gastric banding. 5. History of recurrent UTI. 6. Depression. CURRENT MEDICATIONS: 1. DuoNebs p.r.n. 2. Dulcolax 10 mg p.o. daily p.r.n. 3. Calcium 1 tab p.o. daily. 4. Vitamin D3, 5000 units p.o. daily. 5. Cymbalta 120 mg p.o. at bedtime. 6. Pepcid 20 mg IV daily. 7. Feosol 325 mg p.o. daily. 8. Guaifenesin p.r.n. 9. Zestril 10 mg p.o. b.i.d. 10. Lopressor 12.5 mg p.o. b.i.d. 11. Zofran 4 mg IV q.6 hours p.r.n. 12. Ditropan 5 mg p.o. b.i.d. 13. Zosyn 4.5 g IV q.6 hours. 14. K-Dur 40 mEq p.o. daily. 15. Maxalt 10 mg p.o. b.i.d. 16. Senokot two tabs p.o. b.i.d. 17. Lovenox 40 mg subcu daily, which has been discontinued. ALLERGIES: CEFTRIAXONE, CLINDAMYCIN, AND STATINS. SOCIAL HISTORY: She lives in [place] with her and is hoping to go home. She denies tobacco or alcohol use. FAMILY HISTORY: Noncontributory. REVIEW OF SYSTEMS: Otherwise, 10-point review of systems is negative. Please see the History of Present Illness. PHYSICAL EXAMINATION: VITAL SIGNS: Temperature 97.9, pulse 75, respirations 16, O2 saturation 92% on 2 L nasal cannula, and blood pressure 147/83. GENERAL: She is a chronically ill-appearing female, in no acute distress. HEENT: Extraocular muscles intact. Pupils are equal, round, and reactive to light. She has no oral cavity lesions. NECK: Supple without lymphadenopathy. CARDIOVASCULAR: Regular rhythm. LUNGS: Clear to auscultation bilaterally. ABDOMEN: Hypoactive bowel sounds. Soft, nontender. EXTREMITIES: Notably have no ecchymoses or petechiae. She does have compression stockings in place. LABORATORY DATA: White blood cell count 21,000; hemoglobin 9.6; platelets 91,000, they were 210,000 on admission. D-dimer is 12.9, sodium 141, potassium 3.3, chloride 105, CO2 of 24, BUN 20, creatinine 1.0, glucose 75, calcium 7.7, magnesium 1.4. CT angiogram done today prior to the consultation, showed no signs of pulmonary embolism. ASSESSMENT: Ms. Maciel is a 64-year-old female with multiple sclerosis and urosepsis, now with new onset thrombocytopenia. PLAN: 1. Thrombocytopenia: I did not think this is HIT. Given that she has received Lovenox in the past and has had no problems with thrombocytopenia. I would recommend continuing anticoagulation or at the very least, continuing with the compression stockings and movement. She also has no signs of blood clotting at this time to suggest HIT. 2. My suspicion is that Zosyn and Pepcid together are contributing to thrombocytopenia. I would recommend discussing change of antibiotics with Infectious Disease. 3. Follow CBC closely daily, her platelets need to be stabilized or increased by the time she discharges. 4. I would not recommend platelet transfusion and we will follow at this time. 5. If her platelets continue to decrease, then we may send HIT antibody, but I would hold off on this at this time as she gives a history of getting heparin in the past. Job ID: [id number]
[2020-08-01] MEDS: Rizatriptan Benzoate 10 MG MLT TAB PO PRN (17:16)
--- NOTE | 2020-08-01 19:58 | PDOC.HOSPP ---
- Subjective Encounter Date: 08/01/20 Encounter Time: 10:00 Subjective: Patient was seen and examined in bed. She lived in good spirit however expressed being tired of so much treatment. She was however not depressed. She denied any chest pressure or shortness of breath. Also denied any pain - Objective Vital Signs & Weight: Vital Signs (12 hours) Temp Pulse Resp BP BP Pulse Ox 08/01/20 19:20 72 18 95 08/01/20 16:08 98.0 F 77 15 148/74 H 91 L 08/01/20 11:44 97.9 F 75 16 147/83 H 92 L 08/01/20 08:56 134/69 Weight Weight 137 lb 12.623 oz Most Recent Monitor Data Heart Rate from ECG 69 NIBP 134/71 NIBP BP-Mean 92 Respiration from ECG 25 SpO2 96 I&O: 07/31/20 08/01/20 08/02/20 06:59 06:59 06:59 Intake Total 2386 3019 1850 Output Total 2270 1850 650 Balance 116 1169 1200 Result Diagrams: 08/01/20 05:51 08/01/20 05:51 Hospitalist ROS - Medication Medications: Active Medications Generic Name Dose Route Start Last Admin Trade Name Freq PRN Reason Stop Dose Admin Albuterol/Ipratropium 3 ml 07/29/20 19:00 08/01/20 19:20 Ipratropium/Albuterol Sulfate 3 Ml Neb NEB 3 ml [id number] ANTONIO Administration Duloxetine HCl 120 mg 07/29/20 21:00 07/31/20 22:21 Duloxetine 60 Mg Cap PO 120 mg HS ANTONIO Administration Famotidine 20 mg 07/31/20 09:00 08/01/20 08:55 Famotidine/Pf 20 Mg/2ml Vial SLOW IVP 20 mg 0900 ANTONIO Administration Ferrous Sulfate 325 mg 08/01/20 09:00 08/01/20 08:55 Ferrous Sulfate 325 Mg Tab PO 325 mg DAILY ANTONIO Administration Sodium Chloride 1,000 mls @ 100 mls/hr 07/30/20 08:15 08/01/20 09:06 1/2 Normal Saline IV Not Given .Q10H ANTONIO Piperacillin Sod/Tazobactam 100 mls @ 200 mls/hr 07/30/20 18:00 08/01/20 17:17 Sod 4.5 gm/ Sodium Chloride IVPB 100 mls Q6HR ANTONIO Administration Lisinopril 10 mg 07/31/20 21:00 08/01/20 08:56 Lisinopril 10 Mg Tab PO 10 mg BID ANTONIO Administration Metoprolol Tartrate 12.5 mg 07/31/20 21:00 08/01/20 08:56 Metoprolol Tartrate 25 Mg Tab PO 12.5 mg BID ANTONIO Administration Oxybutynin Chloride 5 mg 07/31/20 21:00 08/01/20 08:55 Oxybutynin 5 Mg Tab PO 5 mg BID ANTONIO Administration Rizatriptan Benzoate 10 mg 08/01/20 11:23 08/01/20 17:16 Rizatriptan Benzoate 10 Mg Hog Ribber Tab PO 10 mg BID PRN Administration Migraine Headache Senna/Docusate Sodium 2 tab 07/29/20 16:30 08/01/20 09:02 Senokot S 8.6-50 Mg Tab PO 2 tab BID PRN Administration Constipation Tramadol HCl 50 mg 07/30/20 21:00 07/31/20 22:22 Tramadol Hcl 50 Mg Tab PO 50 mg Q6H PRN Administration Moderate Pain (4-6) - Exam General Appearance: awake alert, ill appearing Respiratory - other findings: Poor air movement bilaterally. Gastrointestinal: soft, non-tender, non-distended, normal bowel sounds Extremities: no cyanosis, no clubbing, no edema Neurological - other findings: Speech is slightly dysarthric. Musculoskeletal: generalized weakness, diffuse muscle atrophy Musculoskeletal - other findings: Kyphoscoliosis Psychiatric: normal affect, normal behavior, A&O x 3 Hosp A/P - Plan This is a 64-year-old female patient with a history of multiple sclerosis with chronic debility. She status cystoscopy and ureteral stent placement which was unfortunately complicated by urosepsis. She is currently being managed on Zosyn and being followed by ID and pulmonology. Urosepsis Currently on Zosyn No growth on blood culture and urine cultures at the moment. Zosyn dose is 4.5 g every 6 will reduce to 3.75 given thrombocytopenia We will monitor improvement. Discussed with ID in a.m. Thrombocytopenia Rest likely generally due to sepsis/Zosyn/H Unlikely HIT Hematology consultedconsidering reduced Zosyn dose as this may be the culprit Continue monitoring CBC Appreciate heme-onc input. Transaminitis Possibly due to sepsis Repeat CMP in a.m. Nephrolithiasis Stent placed Urology followingsigned off for now She will follow up afterwards. Multiple sclerosis Continue treatment PT Hypokalemia Check magnesiumreplace Electrolyte replacement protocol. VT prophylaxisSCDcode Lovenox CODE STATUSFull code We will ask palliative care for discussion of goals of care.
[2020-08-01] MEDS: DULoxetine 60 MG CAP PO SCH (20:45)
[2020-08-01] MEDS ORDERED: Magnesium Sulfate 4 GM in Sodium Chloride 0.9% 250 ML 250 ML IVPB SCH (21:00)
[2020-08-01] MEDS ORDERED: Piperacillin/Tazobactam 3.375 GM in Sodium Chloride 0.9% 100 ML IVPB SCH (21:00)
[2020-08-01] MEDS: Piperacillin/Tazobactam 3.375 GM in Sodium Chloride 0.9% 100 ML IVPB SCH (23:37)
[2020-08-02] MEDS: Piperacillin/Tazobactam 3.375 GM in Sodium Chloride 0.9% 100 ML IVPB SCH ×4 (05:40→23:13)
[2020-08-02 06:07] LABS: ALT (SGPT) 87 U/L (8-55); AST (SGOT) 27 U/L (5-34); Albumin 2.5 g/dL (3.4-4.8); Alkaline Phosphatase 204 U/L (40-110); Anion Gap 17 mmol/L (10-20); BUN (Urea Nitrogen) 19 mg/dL (9.8-20.1); Bilirubin, Total 0.8 mg/dL (0.2-1.2); Calc. Creatinine Clearance 55 mL/min (70-130); Calcium 7.8 mg/dL (7.8-10.44); Carbon Dioxide 19 mmol/L (23-31); Chloride 108 mmol/L (98-107); Globulin 2.9 g/dL (2.4-3.5); Glucose 76 mg/dL (80-115); Magnesium 2.3 mg/dL (1.6-2.6); Potassium 3.9 mmol/L (3.5-5.1); Protein, Total 5.4 g/dL (6.0-8.3); Sodium 140 mmol/L (136-145)
[2020-08-02] MEDS: Cholecalciferol 1,000 UNITS (25 MCG) TAB PO SCH (08:39)
[2020-08-02] MEDS: Metoprolol Tartrate 25 MG TAB PO SCH ×2 (08:40→20:43)
[2020-08-02] MEDS: Lisinopril 10 MG TAB PO SCH ×2 (08:40→20:43)
[2020-08-02] MEDS: Oxybutynin 5 MG TAB PO SCH ×2 (08:40→20:44)
[2020-08-02] MEDS: Famotidine/PF 20 mg/2ml Vial SLOW IVP SCH (08:43)
[2020-08-02] MEDS: Calcium Carbonate 600 MG + Vit D TAB PO SCH (08:43)
[2020-08-02] MEDS: Ferrous Sulfate 325 MG TAB PO SCH (08:43)
[2020-08-02] MEDS: Sodium Chloride 0.45% 1,000 ML IV SCH ×3 (08:45→23:13)
[2020-08-02 08:50] LABS: Band 9 % (5-11); Eosinophils 1 % (0-10); Hemoglobin 10.1 g/dL (12.0-16.0); Lymphocytes 4 % (21-51); MDiff Complete? YES; Mean Corpuscular HGB CONC 32.6 g/dL (32.0-36.0); Mean Corpuscular Hemoglobin 27.6 pg (27.0-31.0); Mean Corpuscular Volume 84.7 fL (78.0-98.0); Mean Platelet Volume 9.7 fL (7.4-10.4); Monocytes 3 % (0-10); Neutrophil 83 % (42-75); Platelet Count 99 thou/uL (130-400); Platelet Morphology Comment Appears Decreased; RBC Distribution Width 13.7 % (11.5-14.5); Red Blood Cell (RBC) Count 3.68 mill/uL (4.20-5.40); White Blood Cell (WBC) Count 15.6 thou/uL (4.8-10.8)
[2020-08-02] MEDS ORDERED: Non-Formulary Item 1 EACH (Cholecalciferol (Vitamin D3) [Vitamin D] 1000 UNIT Capsule) PO SCH (09:00)
--- NOTE | 2020-08-02 15:41 | PDOC.HOSPP ---
- Subjective Encounter Date: 08/02/20 Encounter Time: 15:39 Subjective: Patient was seen and examined in bed. She had a good night. Denied any chest pain cough shortness of breath. Urine has increased tension catheter however no gross hematuria. - Objective Vital Signs & Weight: Vital Signs (12 hours) Temp Pulse Resp BP BP Pulse Ox 08/02/20 15:21 98.5 F 70 16 159/89 H 89 L 08/02/20 11:06 97.9 F 66 15 153/86 H 95 08/02/20 08:40 154/71 H 08/02/20 08:00 98 08/02/20 07:21 98.5 F 65 15 154/71 H 98 08/02/20 07:19 75 14 Weight Weight 137 lb 12.623 oz Most Recent Monitor Data Heart Rate from ECG 69 NIBP 134/71 NIBP BP-Mean 92 Respiration from ECG 25 SpO2 96 I&O: 08/01/20 08/02/20 08/03/20 06:59 06:59 06:59 Intake Total 3019 3400 Output Total 1850 2250 Balance 1169 1150 Result Diagrams: 08/02/20 07:48 08/02/20 05:36 Hospitalist ROS - Medication Medications: Active Medications Generic Name Dose Route Start Last Admin Trade Name Freq PRN Reason Stop Dose Admin Calcium/Vitamin D 1 tab 08/02/20 08:00 08/02/20 08:43 Calcium Carbonate 600 Mg + Vit D Tab PO 1 tab QAM-WM ANTONIO Administration Cholecalciferol 5,000 units 08/02/20 09:00 08/02/20 08:39 Cholecalciferol 1,000 Units (25 Mcg) Tab PO 5,000 units DAILY ANTONIO Administration Duloxetine HCl 120 mg 07/29/20 21:00 08/01/20 20:45 Duloxetine 60 Mg Cap PO 120 mg HS ANTONIO Administration Famotidine 20 mg 07/31/20 09:00 08/02/20 08:43 Famotidine/Pf 20 Mg/2ml Vial SLOW IVP 20 mg 0900 ANTONIO Administration Ferrous Sulfate 325 mg 08/01/20 09:00 08/02/20 08:43 Ferrous Sulfate 325 Mg Tab PO 325 mg DAILY ANTONIO Administration Sodium Chloride 1,000 mls @ 100 mls/hr 07/30/20 08:15 12/06/20 08:45 1/2 Normal Saline IV 1,000 mls .Q10H ANTONIO Administration Piperacillin Sod/Tazobactam 100 mls @ 200 mls/hr 08/01/20 23:59 08/02/20 12:36 Sod 3.375 gm/ Sodium Chloride IVPB 100 mls Q6HR ANTONIO Administration Lisinopril 10 mg 07/31/20 21:00 08/02/20 08:40 Lisinopril 10 Mg Tab PO 10 mg BID ANTONIO Administration Metoprolol Tartrate 12.5 mg 07/31/20 21:00 08/02/20 08:40 Metoprolol Tartrate 25 Mg Tab PO 12.5 mg BID ANTONIO Administration Oxybutynin Chloride 5 mg 07/31/20 21:00 08/02/20 08:40 Oxybutynin 5 Mg Tab PO 5 mg BID ANTONIO Administration Rizatriptan Benzoate 10 mg 08/01/20 11:23 08/01/20 17:16 Rizatriptan Benzoate 10 Mg Supply Chain Procurement Manager Tab PO 10 mg BID PRN Administration Migraine Headache Senna/Docusate Sodium 2 tab 07/29/20 16:30 08/01/20 09:02 Senokot S 8.6-50 Mg Tab PO 2 tab BID PRN Administration Constipation Tramadol HCl 50 mg 07/30/20 21:00 07/31/20 22:22 Tramadol Hcl 50 Mg Tab PO 50 mg Q6H PRN Administration Moderate Pain (4-6) - Exam General Appearance: awake alert General - other findings: Not ill-appearing ENT: normocephalic atraumatic, no oropharyngeal lesions Heart: RRR, no murmur, no gallops, no rubs Respiratory: CTAB, no wheezes, no rales, no ronchi Gastrointestinal: soft, non-tender, non-distended, normal bowel sounds Extremities: no cyanosis, no clubbing, no edema Neurological: cranial nerve grossly intact (Speech slightly slurred) Neurological - other findings: Chronic deficits in lower limbs Psychiatric: normal affect, normal behavior, A&O x 3 Hosp A/P - Plan This is a 64-year-old female patient with a history of multiple sclerosis with chronic debility. She status cystoscopy and ureteral stent placement which was unfortunately complicated by urosepsis. She is currently being managed on Zosyn and being followed by ID and pulmonology. She has a PICC line in place for long-term antibiotics. Urosepsis Currently on Zosyn No growth on blood culture and urine cultures at the moment. Zosyn dose is 4.5 g every 6 will reduce to 3.75 given thrombocytopenia We will monitor improvement. Discussed with ID in a.m. Thrombocytopenia This has remained stable Thought to be due to Zosyn Zosyn just adjustedawaiting ID input. Hematology following Transaminitis Possibly due to sepsis Improved Continue monitoring Nephrolithiasis Stent placed Urology followingsigned off for now She will follow up afterwards. Multiple sclerosis Continue treatment PT Hypokalemia Resolved Check magnesiumreplace Electrolyte replacement protocol. VT prophylaxisSCDcode Lovenox CODE STATUSFull code We will ask palliative care for discussion of goals of care. Dispositionfor possible discharge tomorrow once stable and ID reevaluate antibiotics. She will follow up with further procedures with urology
[2020-08-02] MEDS: DULoxetine 60 MG CAP PO SCH (20:43)
[2020-08-03] MEDS: traMADol HCl 50 MG TAB PO PRN (03:43)
[2020-08-03] MEDS: Piperacillin/Tazobactam 3.375 GM in Sodium Chloride 0.9% 100 ML IVPB SCH ×3 (05:15→18:03)
[2020-08-03 06:16] LABS: ALT (SGPT) 58 U/L (8-55); AST (SGOT) 14 U/L (5-34); Albumin 2.7 g/dL (3.4-4.8); Alkaline Phosphatase 191 U/L (40-110); Anion Gap 13 mmol/L (10-20); BUN (Urea Nitrogen) 16 mg/dL (9.8-20.1); Bilirubin, Total 0.6 mg/dL (0.2-1.2); Calc. Creatinine Clearance 56 mL/min (70-130); Calcium 8.8 mg/dL (7.8-10.44); Carbon Dioxide 23 mmol/L (23-31); Chloride 107 mmol/L (98-107); Globulin 2.8 g/dL (2.4-3.5); Glucose 90 mg/dL (80-115); Potassium 3.3 mmol/L (3.5-5.1); Protein, Total 5.5 g/dL (6.0-8.3); Sodium 140 mmol/L (136-145)
[2020-08-03 08:11] LABS: Anion Gap 14 mmol/L (10-20); BUN (Urea Nitrogen) 16 mg/dL (9.8-20.1); Calc. Creatinine Clearance 57 mL/min (70-130); Calcium 8.6 mg/dL (7.8-10.44); Carbon Dioxide 24 mmol/L (23-31); Chloride 107 mmol/L (98-107); Glucose 84 mg/dL (80-115); Potassium 3.4 mmol/L (3.5-5.1); Sodium 142 mmol/L (136-145)
--- NOTE | 2020-08-03 08:17 | PRG ---
DATE OF SERVICE: 08/03/2020 SUBJECTIVE: The patient is alert and awake, states that she is feeling much better. Denies flank pain. OBJECTIVE: VITAL SIGNS: Stable. She has been afebrile since surgery. Temperature 98.2, heart rate 68, respirations 18, oxygen saturation 95%, and blood pressure 150/84. I's and O's, 3050 in and 2700 out. GENERAL: patient is in no acute distress. ABDOMEN: Soft, nontender, nondistended. No CVA tenderness. Urine output is light red-tinged, hematuria transparent. EXTREMITIES: Contracted. No calf tenderness appreciated. PERTINENT LABORATORY DATA: White count has trended down to 15 yesterday, hemoglobin 10, and platelets 99. BMP this morning with creatinine 0.99. Repeat CBC has yet to be performed. IMAGING DATA: CT angio demonstrates no evidence of pulmonary embolus performed July 31. Events over the weekend reviewed, in which Hematology was consulted for thrombocytopenia, which is most likely due to septic parameters/medication induced IMPRESSION AND PLAN: 1. Ms. Maciel is a 64-year-old female with history of multiple sclerosis with fecal and urinary incontinence, status post diverting colostomy, chronic suprapubic tube dependent. 2. History of bladder calculi, right renal stone, which are mostly sedimentous debris on pyeloscopy, status post laser lithotripsy. 3. Postop day #5, status post laser lithotripsy, suprapubic tube exchange, and bladder stone evacuation. 4. Postop systemic inflammatory response syndrome, parameters improving. patient is on Zosyn, adjusted due to thrombocytopenia. She is clinically improved and await placement. will obtain CT staging today, placement is pending as we anticipate correction, half-way facility for IV prolonged antibiotics, Zosyn, adjusted due to thrombocytopenia. Events of the weekend and clinical course discussed and updated with the patient in detail. Questions encouraged and answered to her satisfaction. Continue present management. 5: Consider diuretics, she does have pleural effusion are CT angio. Job ID: [id number] [facility]David
[2020-08-03 08:37] LABS: Band 1 % (5-11); Eosinophils 3 % (0-10); Hemoglobin 9.1 g/dL (12.0-16.0); Lymphocytes 11 % (21-51); MDiff Complete? YES; Mean Corpuscular HGB CONC 32.5 g/dL (32.0-36.0); Mean Corpuscular Hemoglobin 27.7 pg (27.0-31.0); Mean Corpuscular Volume 85.3 fL (78.0-98.0); Mean Platelet Volume 9.1 fL (7.4-10.4); Monocytes 10 % (0-10); Neutrophil 74 % (42-75); Platelet Count 106 thou/uL (130-400); Platelet Morphology Comment Appears Decreased; RBC Distribution Width 13.7 % (11.5-14.5); RBC Morphology Normal; Red Blood Cell (RBC) Count 3.29 mill/uL (4.20-5.40); White Blood Cell (WBC) Count 8.6 thou/uL (4.8-10.8)
[2020-08-03] MEDS: Metoprolol Tartrate 25 MG TAB PO SCH ×2 (08:43→21:40)
[2020-08-03] MEDS: Calcium Carbonate 600 MG + Vit D TAB PO SCH (08:43)
[2020-08-03] MEDS: Cholecalciferol 1,000 UNITS (25 MCG) TAB PO SCH (08:44)
[2020-08-03] MEDS: Lisinopril 10 MG TAB PO SCH ×2 (08:44→21:42)
[2020-08-03] MEDS: Famotidine/PF 20 mg/2ml Vial SLOW IVP SCH (08:45)
[2020-08-03] MEDS: Oxybutynin 5 MG TAB PO SCH ×2 (08:45→21:41)
[2020-08-03] MEDS: Ferrous Sulfate 325 MG TAB PO SCH (08:45)
--- NOTE | 2020-08-03 08:49 | CT ---
CT ABDOMEN WITH CONTRAST CT PELVIS WITH CONTRAST: DATE: 08/03/2020 HISTORY: 64-year-old female for postsurgical follow-up. No additional information given. COMPARISON: 05/26/2020 TECHNIQUE: IV injection of iodinated contrast media: administered. Oral contrast media:Not administered FINDINGS: There are moderate-sized bilateral pleural effusions, new since 05/26/[address], and increased in volume compared to 07/31/2020 CT pulmonary angiogram. Associated consolidation and adjacent portion of left lower lobe probably represents passive atelectasis, although pneumonia cannot be rule d out. Similar smaller airspace opacity in right lower lobe adjacent to right pleural effusion. The descending colon crosses the midline to connect to a colostomy in the right paramedian anterior a bdominal wall. Unlike on the prior CT, that colostomy loop does contain stool. There is mild mural thickening at the colostomy. The previously demonstrated colonic distention proximal to the colostomy , has resolved. There is a new right ureteral stent. Upper curl is at right renal upper pole calyces. Lower curl is i n the lumen of the right side of the decompressed urinary bladder.. The suprapubic catheter remains in the bladder. No hydronephrosis on left. Right renal pelvis is mildly dilated, as are some of the right renal calyces, greater than on the pre vious CT. Calcific fragments in the right renal collecting system are more prominent than on prior CT. This includes an approximately 1.5 x 0.3 cm curvilinear calculus or array of calculus fragments in ri ght renal lower pole major calyx. Just distal to that, and a partially 1.5 x 0.4 cm array of calcific fragments in more distal portion of right renal lower pole major calyx. 0.4 x 0.3 cm calculus or cluster of calcific fragments in right renal pelvis.. Multiple bilateral renal cysts again noted. New finding of somewhat severe edema in the subcutaneous fat of the bilateral flanks and superficial to the pelvis posteriorly. Left paramedian superficial parasacral lesion again noted suspicious for sacral decubitus ulcer. Small amount of free fluid within pelvic cavity, new since previous CT. Within the limitations of a noncontrast scan, no obvious major pathology identified involving abdomin al aorta, liver, pancreas, spleen, and adrenals.. IMPRESSION: 1) new right ureteral stent 2) multiple posttreatment calcific fragments in the right renal collecting system. 3) mild/minimal right hydronephrosis 4) suprapubic catheter remains. 5) new anasarca. 6) small amount of free fluid within pelvic cavity. 7) moderate size bilateral pleural effusions and adjacent airspace lower lobe opacities, left greater than right. 8) interval resolution of the previously demonstrated abnormality associated with colostomy.
[2020-08-03] MEDS: Senokot S 8.6-50 MG TAB PO PRN (08:53)
[2020-08-03] MEDS ORDERED: Potassium Chloride 20 MEQ TAB PO SCH (10:00)
[2020-08-03] MEDS: Sodium Chloride 0.45% 1,000 ML IV SCH (13:51)
--- NOTE | 2020-08-03 14:27 | PDOC.MOPN ---
Interval History: dozing, no distress - Vital Signs Vital Signs: Vital Signs (12 hours) Temp Pulse Resp BP BP Pulse Ox 08/03/20 08:44 163/84 H 08/03/20 08:00 97.7 F 65 20 163/84 H 97 Weight Weight 137 lb 12.623 oz Most Recent Monitor Data Heart Rate from ECG 69 NIBP 134/71 NIBP BP-Mean 92 Respiration from ECG 25 SpO2 96 - Physical Exam General: No acute distress Lungs: Clear to auscultation Cardiovascular: Regular rate Abdomen: Other - Labs Result Diagrams: 08/03/20 05:32 08/03/20 07:23 Lab results: Laboratory Results - last 24 hr 08/03/20 07:23: Sodium 142, Potassium 3.4 L, Chloride 107, Carbon Dioxide 24, Anion Gap 14, BUN 16, Creatinine 0.97, Estimated GFR (MDRD) 58, Glucose 84, Calcium 8.6 08/03/20 05:32: WBC 8.6, RBC 3.29 L, Hgb 9.1 L, Hct 28.1 L, MCV 85.3, MCH 27.7, MCHC 32.5, RDW 13.7, Plt Count 106 L, MPV 9.1, Neutrophils % (Manual) 74, Band Neuts % (Manual) 1 L, Lymphocytes % (Manual) 11 L, Monocytes % (Manual) 10, Eosinophils % (Manual) 3, Basophils % (Manual) 1, Plt Morphology Comment Appears Decreased L, RBC Morph Comment Normal 08/03/20 05:31: Sodium 140, Potassium 3.3 L, Chloride 107, Carbon Dioxide 23, Anion Gap 13, BUN 16, Creatinine 0.99, Estimated GFR (MDRD) 56, Glucose 90, Calcium 8.8, Total Bilirubin 0.6, AST 14, ALT 58 H, Alkaline Phosphatase 191 H, Serum Total Protein 5.5 L, Albumin 2.7 L, Globulin 2.8, Albumin/Globulin Ratio 1.0 L Status: lab reviewed by me A/P - Problem (1) Thrombocytopenia Current Visit: Yes Code(s): D69.6 - THROMBOCYTOPENIA, UNSPECIFIED Status: Acute - Plan Plan: platelets improved with Zosyn dose reduction no evidence of HIT Anemia from acute illness. No transfusion required daily CBC, will follow remotely
--- NOTE | 2020-08-03 18:28 | PDOC.HOSPP ---
- Subjective Encounter Date: 08/03/20 Encounter Time: 11:00 Subjective: Examined in bed. She denied any chest pain shortness of breath. No significant overnight events - Objective Vital Signs & Weight: Vital Signs (12 hours) Temp Pulse Resp BP BP Pulse Ox 08/03/20 16:00 97.9 F 60 20 165/77 H 98 08/03/20 08:44 163/84 H 08/03/20 08:00 97.7 F 65 20 163/84 H 97 Weight Weight 137 lb 12.623 oz Most Recent Monitor Data Heart Rate from ECG 69 NIBP 134/71 NIBP BP-Mean 92 Respiration from ECG 25 SpO2 96 I&O: 08/02/20 08/03/20 08/04/20 06:59 06:59 06:59 Intake Total 3400 3050 Output Total 2250 3500 Balance 1150 -450 Result Diagrams: 08/03/20 05:32 08/03/20 07:23 Hospitalist ROS - Medication Medications: Active Medications Generic Name Dose Route Start Last Admin Trade Name Enocq PRN Reason Stop Dose Admin Calcium/Vitamin D 1 tab 08/02/20 08:00 08/03/20 08:43 Calcium Carbonate 600 Mg + Vit D Tab PO 1 tab QAM-WM ANTONIO Administration Cholecalciferol 5,000 units 08/02/20 09:00 08/03/20 08:44 Cholecalciferol 1,000 Units (25 Mcg) Tab PO 5,000 units DAILY ANTONIO Administration Duloxetine HCl 120 mg 07/29/20 21:00 08/02/20 20:43 Duloxetine 60 Mg Cap PO 120 mg HS ANTONIO Administration Famotidine 20 mg 07/31/20 09:00 08/03/20 08:45 Famotidine/Pf 20 Mg/2ml Vial SLOW IVP 20 mg 0900 ANTONIO Administration Ferrous Sulfate 325 mg 08/01/20 09:00 08/03/20 08:45 Ferrous Sulfate 325 Mg Tab PO 325 mg DAILY ANTONIO Administration Sodium Chloride 1,000 mls @ 100 mls/hr 07/30/20 08:15 08/03/20 13:51 1/2 Normal Saline IV 1,000 mls .Q10H ANTONIO Administration Piperacillin Sod/Tazobactam 100 mls @ 200 mls/hr 08/01/20 23:59 08/03/20 18:03 Sod 3.375 gm/ Sodium Chloride IVPB 100 mls Q6HR ANTONIO Administration Lisinopril 10 mg 07/31/20 21:00 08/03/20 08:44 Lisinopril 10 Mg Tab PO 10 mg BID ANTONIO Administration Metoprolol Tartrate 12.5 mg 07/31/20 21:00 08/03/20 08:43 Metoprolol Tartrate 25 Mg Tab PO 12.5 mg BID ANTONIO Administration Oxybutynin Chloride 5 mg 07/31/20 21:00 08/03/20 08:45 Oxybutynin 5 Mg Tab PO 5 mg BID ANTONIO Administration Rizatriptan Benzoate 10 mg 08/01/20 11:23 08/01/20 17:16 Rizatriptan Benzoate 10 Mg Chemistry Associate Tab PO 10 mg BID PRN Administration Migraine Headache Senna/Docusate Sodium 2 tab 07/29/20 16:30 08/03/20 08:53 Senokot S 8.6-50 Mg Tab PO 2 tab BID PRN Administration Constipation Tramadol HCl 50 mg 07/30/20 21:00 08/03/20 03:43 Tramadol Hcl 50 Mg Tab PO 50 mg Q6H PRN Administration Moderate Pain (4-6) - Exam General Appearance: awake alert, ill appearing Heart: RRR, no murmur, no gallops Respiratory: CTAB, no wheezes, no rales, no ronchi Gastrointestinal: soft, non-tender, non-distended, normal bowel sounds Extremities: no cyanosis, no clubbing, no edema Neurological - other findings: Speech is slightly slurred Psychiatric: normal affect, A&O x 3 Hosp A/P - Plan This is a 64-year-old female patient with a history of multiple sclerosis with chronic debility. She status cystoscopy and ureteral stent placement which was unfortunately complicated by urosepsis. She is currently being managed on Zosyn and being followed by ID She has a PICC line in place for long-term antibiotics. Arrangement made for senior living facility transfer for long-term antibiotic treatment Urosepsis Currently on Zosyn No growth on blood culture and urine cultures at the moment. Zosyn dose is 4.5 g every 6 will reduce to 3.75 given thrombocytopenia We will monitor improvement. Discussed with ID in a.m. Bilateral pleural effusion We will start diuresis. Possible pneumonia Covered on Zosyn Continue monitor Thrombocytopenia Stable Appreciate hematology input. Transaminitis Possibly due to sepsis Improved Continue monitoring Nephrolithiasis Stent placed Urology followingsigned off for now She will follow up afterwards. Multiple sclerosis Continue treatment PT Hypokalemia Resolved Check magnesiumreplace Electrolyte replacement protocol. S/p diverting colostomy The setting of fecal incontinence from primary Suprapubic catheter Setting of urinary continence limits. VT prophylaxisSCDcode Lovenox CODE STATUSFull code We will ask palliative care for discussion of goals of care. Dispositionfor possible discharge tomorrow once stable and ID reevaluate antibiotics. She will follow up with further procedures with urology
[2020-08-03] MEDS ORDERED: Furosemide 40 MG/4 ML VIAL SLOW IVP SCH (19:00)
[2020-08-03] MEDS: DULoxetine 60 MG CAP PO SCH (21:40)
[2020-08-04] MEDS: Sodium Chloride 0.45% 1,000 ML IV SCH ×2 (00:26→01:44)
[2020-08-04] MEDS: Piperacillin/Tazobactam 3.375 GM in Sodium Chloride 0.9% 100 ML IVPB SCH ×4 (00:26→17:27)
[2020-08-04 06:16] LABS: Hemoglobin 9.8 g/dL (12.0-16.0); Mean Corpuscular HGB CONC 32.7 g/dL (32.0-36.0); Mean Corpuscular Hemoglobin 27.5 pg (27.0-31.0); Mean Corpuscular Volume 84.2 fL (78.0-98.0); Mean Platelet Volume 8.6 fL (7.4-10.4); Platelet Count 153 thou/uL (130-400); RBC Distribution Width 13.5 % (11.5-14.5); Red Blood Cell (RBC) Count 3.56 mill/uL (4.20-5.40); White Blood Cell (WBC) Count 6.6 thou/uL (4.8-10.8)
[2020-08-04 06:28] LABS: ALT (SGPT) 43 U/L (8-55); AST (SGOT) 11 U/L (5-34); Albumin 2.9 g/dL (3.4-4.8); Alkaline Phosphatase 175 U/L (40-110); Anion Gap 17 mmol/L (10-20); BUN (Urea Nitrogen) 13 mg/dL (9.8-20.1); Bilirubin, Total 0.5 mg/dL (0.2-1.2); Calc. Creatinine Clearance 53 mL/min (70-130); Calcium 9.3 mg/dL (7.8-10.44); Carbon Dioxide 29 mmol/L (23-31); Chloride 100 mmol/L (98-107); Globulin 3.3 g/dL (2.4-3.5); Glucose 79 mg/dL (80-115); Potassium 3.2 mmol/L (3.5-5.1); Protein, Total 6.2 g/dL (6.0-8.3); Sodium 143 mmol/L (136-145)
[2020-08-04 06:44] LABS: Band 2 % (5-11); Eosinophils 2 % (0-10); Lymphocytes 16 % (21-51); MDiff Complete? YES; Monocytes 10 % (0-10); Neutrophil 70 % (42-75)
[2020-08-04] MEDS ORDERED: Potassium Chloride 20 MEQ TAB PO SCH (08:15)
--- NOTE | 2020-08-04 08:54 | PRG ---
DATE OF SERVICE: 08/04/2020 SUBJECTIVE: The patient alert, she appears to be more alert in the morning hours stent than in the afternoon. She states that she has no difficulty, states she has no flank pain. Denies chills, fever. OBJECTIVE: VITAL SIGNS: Are stable. She is afebrile, 97, 63, 20, 97% on 2 L, 151/78. I's and O's after Lasix IV push 3 L in, output 10,900 mL. GENERAL: The patient is in no acute distress. ABDOMEN: Soft. No rigidity. No rebound. [place] catheter is adequately secured demonstrating noni yellow urine with some sediment. EXTREMITIES: Contracted. No calf tenderness or edema is noted. PERTINENT LABORATORY DATA: White count 6.6, hemoglobin 9.8, platelet 158. No significant left shift of concern. Renal function stable. Creatinine 1.04, potassium is 3.2. Urine culture, blood culture since admission is negative. The patient currently on Zosyn 3.375 every 6 hours. IMPRESSION AND PLAN: 1. Ms. Maciel is a 64-year-old female with history of multiple sclerosis with fecal urinary incontinence, status post colostomy, suprapubic tube dependent. 2. History of bladder calculi, right renal stone, in which the stone moiety on pyeloscopy demonstrates sedimentous debris. 3. Postop day #6 status post laser lithotripsy, suprapubic tube exchange, bladder stone evac. 4. Postop SIRS syndrome, leukocytosis, bandemia resolved as well as thrombocytopenia. 5. Bilateral pleural effusion with diuresis. She has put out significant amount of urine, which will aid in passage of her stone debris. Continue diuresis. obtain fu PA and lateral chest x-ray today. Consider [id number] nebulizer 6. [facility] Continue medical optimization. I did review her followup CT demonstrating the stone burden. Pending the clinical course in the next week or so, I have discussed with her regarding options of stent pull and observation as most of her stone moiety is sedimentous debris, versus relook pyeloscopy which remains high risk as she could have recurrence of her septic parameters, SIRS syndrome. As she is recovering, will continue to monitor for now. Continue IV antibiotics. will need to conference with Infectious Disease regarding course of IV antibiotic regimen. Discussed with Case Management. Job ID: [id number] [facility]
--- NOTE | 2020-08-04 09:17 | RAD ---
TWO VIEW CHEST: AP frontal and lateral views chest obtained. INDICATION: Pleural effusions. COMPARISON: 07/29/2020. FINDINGS: There are moderate-sized bilateral pleural effusions which obscure the posterior gutters as noted on the lateral view. On the frontal projection, there is a hazy density in the right mid lung field which could represent hazy [id number] infiltrate. I cannot exclude some mild infiltrate and/or atelectasis in the l eft lung base. Findings correspond to the CT chest performed 07/31/2020. IMPRESSION: Bilateral effusions and bilateral hazy infiltrates. POS: AGW
[2020-08-04] MEDS: Cholecalciferol 1,000 UNITS (25 MCG) TAB PO SCH (10:09)
[2020-08-04] MEDS: Lisinopril 10 MG TAB PO SCH ×2 (10:09→20:10)
[2020-08-04] MEDS: Calcium Carbonate 600 MG + Vit D TAB PO SCH (10:10)
[2020-08-04] MEDS: Furosemide 40 MG/4 ML VIAL SLOW IVP SCH (10:10)
[2020-08-04] MEDS: Oxybutynin 5 MG TAB PO SCH ×2 (10:10→20:10)
[2020-08-04] MEDS: Ferrous Sulfate 325 MG TAB PO SCH (10:10)
[2020-08-04] MEDS: Metoprolol Tartrate 25 MG TAB PO SCH ×2 (10:10→20:10)
[2020-08-04] MEDS: Famotidine/PF 20 mg/2ml Vial SLOW IVP SCH (10:11)
[2020-08-04] MEDS ORDERED: Sodium Chloride 0.65% Nasal 44 ML BOT EA NARE PRN (14:27)
--- NOTE | 2020-08-04 16:05 | PDOC.FMACP ---
Advance Care Planning - Problem (1) Sepsis Status: Acute Code(s): A41.9 - SEPSIS, UNSPECIFIED ORGANISM (2) Pleural effusion Status: Acute Code(s): J90 - PLEURAL EFFUSION, NOT ELSEWHERE CLASSIFIED (3) Multiple sclerosis Status: Acute Code(s): G35 - MULTIPLE SCLEROSIS (4) Palliative care encounter Status: Acute Code(s): Z51.5 - ENCOUNTER FOR PALLIATIVE CARE (5) Thrombocytopenia Status: Acute Code(s): D69.6 - THROMBOCYTOPENIA, UNSPECIFIED - Note Participants: patient, palliative care Summary: Palliative care addressed advanced care planning when addressing Goal of Care. Discussed multiple disease processes. Understanding of disease trajectory. *Elected to complete MPOA. Original and copy given to patient as well as copy placed on chart for medical records. *elected to complete DNAR. *Will revisit directive to physician *Hopeful for transition to [facility] setting, consideration is cost of medication Gilenya which is $9000/awaiting insurance approval *Plan to follow up with Dr Ware to revisit stone burden and potential measures to manage after completion of abx therapy.
--- NOTE | 2020-08-04 17:06 | PDOC.HOSPP ---
- Subjective Encounter Date: 08/04/20 Encounter Time: 10:00 Subjective: Patient was seen and examined in bed. She was comfortable. Denied any worsening shortness of breath. Denies any chest pain or cough. No significant events overnight - Objective Vital Signs & Weight: Vital Signs (12 hours) Temp Pulse Resp BP Pulse Ox 08/04/20 15:55 97.8 F 60 17 128/83 96 08/04/20 11:32 98 F 63 17 133/80 97 08/04/20 08:00 97 Weight Weight 137 lb 12.623 oz Most Recent Monitor Data Heart Rate from ECG 69 NIBP 134/71 NIBP BP-Mean 92 Respiration from ECG 25 SpO2 96 I&O: 08/03/20 08/04/20 08/05/20 06:59 06:59 06:59 Intake Total 3050 3000 Output Total 3500 66947 Balance -450 -7900 Result Diagrams: 08/04/20 05:45 08/04/20 05:45 Hospitalist ROS - Medication Medications: Active Medications Generic Name Dose Route Start Last Admin Trade Name Freq PRN Reason Stop Dose Admin Calcium/Vitamin D 1 tab 08/02/20 08:00 08/04/20 10:10 Calcium Carbonate 600 Mg + Vit D Tab PO 1 tab QAM-WM ANTONIO Administration Cholecalciferol 5,000 units 08/02/20 09:00 08/04/20 10:09 Cholecalciferol 1,000 Units (25 Mcg) Tab PO 5,000 units DAILY ANTONIO Administration Duloxetine HCl 120 mg 07/29/20 21:00 08/03/20 21:40 Duloxetine 60 Mg Cap PO 120 mg HS ANTONIO Administration Famotidine 20 mg 07/31/20 09:00 08/04/20 10:11 Famotidine/Pf 20 Mg/2ml Vial SLOW IVP 20 mg 0900 ANTONIO Administration Ferrous Sulfate 325 mg 08/01/20 09:00 08/04/20 10:10 Ferrous Sulfate 325 Mg Tab PO 325 mg DAILY ANTONIO Administration Furosemide 40 mg 08/04/20 09:00 08/04/20 10:10 Furosemide 40 Mg/4 Ml Vial SLOW IVP 40 mg DAILY ANTONIO Administration Piperacillin Sod/Tazobactam 100 mls @ 200 mls/hr 08/01/20 23:59 08/04/20 12:50 Sod 3.375 gm/ Sodium Chloride IVPB 100 mls Q6HR ANTONIO Administration Lisinopril 10 mg 07/31/20 21:00 08/04/20 10:09 Lisinopril 10 Mg Tab PO 10 mg BID ANTONIO Administration Metoprolol Tartrate 12.5 mg 07/31/20 21:00 08/04/20 10:10 Metoprolol Tartrate 25 Mg Tab PO 12.5 mg BID ANTONIO Administration Oxybutynin Chloride 5 mg 07/31/20 21:00 08/04/20 10:10 Oxybutynin 5 Mg Tab PO 5 mg BID ANTONIO Administration Rizatriptan Benzoate 10 mg 08/01/20 11:23 08/01/20 17:16 Rizatriptan Benzoate 10 Mg Wool Shearing Supervisor Tab PO 10 mg BID PRN Administration Migraine Headache Senna/Docusate Sodium 2 tab 07/29/20 16:30 08/03/20 08:53 Senokot S 8.6-50 Mg Tab PO 2 tab BID PRN Administration Constipation Tramadol HCl 50 mg 07/30/20 21:00 08/03/20 03:43 Tramadol Hcl 50 Mg Tab PO 50 mg Q6H PRN Administration Moderate Pain (4-6) - Exam General Appearance: awake alert General - other findings: Frail looking, ENT: normocephalic atraumatic, no oropharyngeal lesions Heart: RRR, no murmur, no gallops, no rubs Respiratory: CTAB, no wheezes, no rales Gastrointestinal: non-tender, non-distended, normal bowel sounds Gastrointestinal - other findings: Colostomy with bag presents Extremities - other findings: No edema Neurological - other findings: General weakness Psychiatric: normal affect, A&O x 3 Hosp A/P - Plan This is a 64-year-old female patient with a history of multiple sclerosis with chronic debility. She status cystoscopy and ureteral stent placement and lithotripsy which was unfortunately complicated by urosepsis. She is currently being managed on Zosyn and being followed by ID She has a PICC line in place for long-term antibiotics. Arrangement made for [facility] facility transfer for long-term antibiotic treatment Urosepsis Currently on Zosyn No growth on blood culture and urine cultures at the moment. Zosyn dose is 4.5 g every 6 will reduce to 3.75 given thrombocytopenia We will monitor improvement. Discussed with ID in a.m. Bilateral pleural effusion We will start diuresis. Possible pneumonia Covered on Zosyn Continue monitor Thrombocytopenia Stable Appreciate hematology input. Transaminitis Possibly due to sepsis Improved Continue monitoring Nephrolithiasis Stent placed Urology followingsigned off for now She will follow up afterwards. Multiple sclerosis Continue treatment PT Hypokalemia Resolved Check magnesiumreplace Electrolyte replacement protocol. S/p diverting colostomy The setting of fecal incontinence from primary Suprapubic catheter Setting of urinary continence limits. VT prophylaxisSCDcode Lovenox CODE STATUSFull code We will ask palliative care for discussion of goals of care. Dispositionfor possible discharge tomorrow once stable and ID reevaluate antibiotics. She will follow up with further procedures with urology
[2020-08-04] MEDS: Rizatriptan Benzoate 10 MG MLT TAB PO PRN (17:28)
[2020-08-04] MEDS: DULoxetine 60 MG CAP PO SCH (20:09)
[2020-08-05] MEDS: Piperacillin/Tazobactam 3.375 GM in Sodium Chloride 0.9% 100 ML IVPB SCH ×4 (00:28→17:26)
--- NOTE | 2020-08-05 07:41 | PRG ---
DATE OF SERVICE: 08/05/2020 SUBJECTIVE: The patient resting, easily arousable. Denies chest pain, shortness of breath, chills. Vital signs are stable. She is 95% on room air. Blood pressure is stable. I's and O's 1890 in and 3100 out. OBJECTIVE: GENERAL: The patient is in no acute distress. HEART: Regular rate. LUNGS: Clear. Decreased inspiratory effort. ABDOMEN: Soft. No rigidity. No rebound. No CVA tenderness. Suprapubic tube is draining clear yellow urine. EXTREMITIES: Contracted. No edema. LABORATORY DATA: No new labs this morning. IMPRESSION AND PLAN: 1. A 64-year-old female, history of multiple sclerosis, status post diverting colostomy, suprapubic tube due to chronic incontinence of stool and urine. 2. Postop day #7 status post laser lithotripsy, suprapubic tube exchange, bladder stone evacuation, laser lithotripsy of right renal calculi. 3. Postoperative systemic inflammatory response syndrome with leukocytosis, bandemia resolved. 4. Thrombocytopenia, resolved. 5. Bilateral pleural effusion, the patient diuresed. DISPOSITION: Pending. Most likely per family service caseworker, she will be discharged to [facility] in the next day or two. Per Dr. Jose antibiotic will continue for August 15, which I agree for now. She has a followup appointment with me next , at 11:00 a.m. for possible cysto stent pull pending restaging CT. I will need to coordinate a followup CT on day of the appointment. Most of her stone debris is dust-like caliber, given her bedridden state, spontaneous passage may be suboptimal. restaging CT prior to her stent pull versus restaging ureteroscopy, if clinically indicated. Prefer to be conservative, given her current events of postop SIRS. Job ID: [id number] [facility]
[2020-08-05 09:45] LABS: Anion Gap 14 mmol/L (10-20); BUN (Urea Nitrogen) 11 mg/dL (9.8-20.1); Calc. Creatinine Clearance 53 mL/min (70-130); Calcium 9.5 mg/dL (7.8-10.44); Carbon Dioxide 33 mmol/L (23-31); Chloride 96 mmol/L (98-107); Glucose 130 mg/dL (80-115); Magnesium 1.4 mg/dL (1.6-2.6); Potassium 3.4 mmol/L (3.5-5.1); Sodium 140 mmol/L (136-145)
[2020-08-05] MEDS: Cholecalciferol 1,000 UNITS (25 MCG) TAB PO SCH (09:51)
[2020-08-05] MEDS: Furosemide 40 MG/4 ML VIAL SLOW IVP SCH (09:51)
[2020-08-05] MEDS: Ferrous Sulfate 325 MG TAB PO SCH (09:51)
[2020-08-05] MEDS: Famotidine/PF 20 mg/2ml Vial SLOW IVP SCH (09:51)
[2020-08-05] MEDS: Lisinopril 10 MG TAB PO SCH ×2 (09:52→20:10)
[2020-08-05] MEDS: Metoprolol Tartrate 25 MG TAB PO SCH ×2 (09:52→20:11)
[2020-08-05] MEDS: Oxybutynin 5 MG TAB PO SCH ×2 (09:52→20:10)
[2020-08-05] MEDS: Calcium Carbonate 600 MG + Vit D TAB PO SCH (09:52)
[2020-08-05] MEDS ORDERED: Magnesium Sulfate 4 GM in Sodium Chloride 0.9% 250 ML 250 ML IVPB SCH (10:15)
[2020-08-05] MEDS ORDERED: Potassium Chloride 20 MEQ TAB PO SCH (10:15)
[2020-08-05] MEDS ORDERED: Potassium Bicarbonate/Cit Ac 20 MEQ TAB PO SCH (11:15)
[2020-08-05 11:51] LABS: Band 5 % (5-11); Eosinophils 1 % (0-10); Hemoglobin 10.5 g/dL (12.0-16.0); Hypochromia SLIGHT = 6-15 cells (100X) (0-5/hpf); Lymphocytes 12 % (21-51); MDiff Complete? YES; Mean Corpuscular HGB CONC 30.1 g/dL (32.0-36.0); Mean Corpuscular Hemoglobin 25.2 pg (27.0-31.0); Mean Corpuscular Volume 83.8 fL (78.0-98.0); Mean Platelet Volume 8.6 fL (7.4-10.4); Monocytes 12 % (0-10); Neutrophil 66 % (42-75); Platelet Count 241 thou/uL (130-400); Platelet Morphology Comment Appears Adequate; Polychromasia SLIGHT = 2-3 cells (100X) (0-2/hpf); RBC Distribution Width 13.7 % (11.5-14.5); Reactive Lymphocytes 3 % (0-10); Red Blood Cell (RBC) Count 4.15 mill/uL (4.20-5.40); White Blood Cell (WBC) Count 6.7 thou/uL (4.8-10.8)
--- NOTE | 2020-08-05 12:15 | PDOC.PALPN ---
Palliative Progress Note - Subjective Sitting in recliner at bedside. Complains of "dry mouth". "tired of colostomy and suprapubic cath". 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 Wheel chair dependent, uses slid board for transfers. . - Objective Vital Signs: Vital Signs - Most Recent Temp Pulse Resp BP Pulse Ox 97.5 F L 66 22 H 138/83 99 08/05/20 07:35 08/05/20 08:55 08/05/20 07:35 08/05/20 09:52 08/05/20 08:55 - Physical Exam Constitutional: ill appearing HEENT: EOMI, moist MMs, sclera anicteric Respiratory: no wheezing, unlabored breathing, diminished lung sound Deviation from normal: On supplemental oxygen Cardiovascular: RRR Gastrointestinal: colostomy Genitourinary: suprapubic catheter Deviation from normal: clear yellow urine Musculoskeletal: pulses present, diffuse muscle atrophy Deviation from normal: deficit to lower extremities Skin: cap refill <2 seconds Psychiatric: A&O x 3 - Assessment (1) Sepsis Code(s): A41.9 - SEPSIS, UNSPECIFIED ORGANISM Current Visit: Yes Status: Acute (2) Pleural effusion Code(s): J90 - PLEURAL EFFUSION, NOT ELSEWHERE CLASSIFIED Current Visit: Yes Status: Acute (3) Multiple sclerosis Code(s): G35 - MULTIPLE SCLEROSIS Current Visit: Yes Status: Acute (4) Palliative care encounter Code(s): Z51.5 - ENCOUNTER FOR PALLIATIVE CARE Current Visit: Yes Status: Acute (5) Thrombocytopenia Code(s): D69.6 - THROMBOCYTOPENIA, UNSPECIFIED Current Visit: Yes Status: Ac [place] - Plan Plan: *Ms Maciel expressed she has not seen her neurologist that follows her MS/Dr Marte in over a year. Discussed option of Zoom appt and encouraged her to call and schedule an appointment. *Discussed her wishes, she does not desire to "be in the hospital but at home" she also states she is at peace and 'ready to pass" as her life is increasingly burdened by her disease. In discussing hospice as a future option she states that she does not desire to puruse that route because she will not be able to continue with her physicians that she currently sees. *Transition to [place] assisted *Transition to home setting and follow up with Dr Ware and make appt with neurologist. *Eventually return to home setting and continue to see physicians, open to home health, palliate symptoms related to MS *Biotene for dry mucous membranes, also encouraged use of lemon glycerine swabs Palliative Care will sign off as Goal of care and directives addressed. If we can assist in the future with revisiting Goal of care, complex decision making, symptom management please re consult our team Thank you for this very appropriate consult, it was our pleasure to participate in the care of Mrs Maciel [50] minutes spent on this encounter with >50% of the time in counseling and coordination of care. - ROS Constitutional: alert, weakness ENT: dry mouth, other (Denies difficulity swallowing) Respiratory: shortness of breath Cardiology: other (Denies chest pain or palpitations) Gastrointestinal: bloating Genitourinary: other (Denies suprapubic pain) Neurological: weakness
--- NOTE | 2020-08-05 17:25 | PDOC.HOSPP ---
- Subjective Encounter Date: 08/05/20 Encounter Time: 11:00 Subjective: Patient was seen and examined in bed. She is generally comfortable. No chest pain shortness of breath no cough. She has no complaints today - Objective Vital Signs & Weight: Vital Signs (12 hours) Temp Pulse Pulse Resp BP BP BP 08/05/20 09:52 138/83 08/05/20 08:55 66 138/83 08/05/20 07:35 97.5 F L 66 22 H 138/83 08/05/20 05:57 Pulse Ox Pulse Ox 08/05/20 09:52 08/05/20 08:55 99 08/05/20 07:35 99 08/05/20 05:57 95 Weight Weight 137 lb 12.623 oz Most Recent Monitor Data Heart Rate from ECG 69 NIBP 134/71 NIBP BP-Mean 92 Respiration from ECG 25 SpO2 96 I&O: 08/04/20 08/05/20 08/06/20 06:59 06:59 06:59 Intake Total 3000 1890 750 Output Total 97873 3401 Balance -7900 -1511 750 Result Diagrams: 08/05/20 08:57 08/05/20 08:57 Hospitalist ROS - Medication Medications: Active Medications Generic Name Dose Route Start Last Admin Trade Name Freq PRN Reason Stop Dose Admin Calcium/Vitamin D 1 tab 08/02/20 08:00 08/05/20 09:52 Calcium Carbonate 600 Mg + Vit D Tab PO 1 tab QAM-WM ANTONIO Administration Cholecalciferol 5,000 units 08/02/20 09:00 08/05/20 09:51 Cholecalciferol 1,000 Units (25 Mcg) Tab PO 5,000 units DAILY ANTONIO Administration Duloxetine HCl 120 mg 07/29/20 21:00 08/04/20 20:09 Duloxetine 60 Mg Cap PO 120 mg HS ANTONIO Administration Famotidine 20 mg 07/31/20 09:00 08/05/20 09:51 Famotidine/Pf 20 Mg/2ml Vial SLOW IVP 20 mg 0900 ANTONIO Administration Ferrous Sulfate 325 mg 08/01/20 09:00 08/05/20 09:51 Ferrous Sulfate 325 Mg Tab PO 325 mg DAILY ANTONIO Administration Furosemide 40 mg 08/04/20 09:00 08/05/20 09:51 Furosemide 40 Mg/4 Ml Vial SLOW IVP 40 mg DAILY ANTONIO Administration Piperacillin Sod/Tazobactam 100 mls @ 200 mls/hr 08/01/20 23:59 08/05/20 13:36 Sod 3.375 gm/ Sodium Chloride IVPB 100 mls Q6HR ANTONIO Administration Lisinopril 10 mg 07/31/20 21:00 08/05/20 09:52 Lisinopril 10 Mg Tab PO 10 mg BID ANTONIO Administration Metoprolol Tartrate 12.5 mg 07/31/20 21:00 08/05/20 09:52 Metoprolol Tartrate 25 Mg Tab PO 12.5 mg BID ANTONIO Administration Oxybutynin Chloride 5 mg 07/31/20 21:00 08/05/20 09:52 Oxybutynin 5 Mg Tab PO 5 mg BID ANTONIO Administration Rizatriptan Benzoate 10 mg 08/01/20 11:23 08/04/20 17:28 Rizatriptan Benzoate 10 Mg Gymnastic Coach Tab PO 10 mg BID PRN Administration Migraine Headache Senna/Docusate Sodium 2 tab 07/29/20 16:30 08/03/20 08:53 Senokot S 8.6-50 Mg Tab PO 2 tab BID PRN Administration Constipation Tramadol HCl 50 mg 07/30/20 21:00 08/03/20 03:43 Tramadol Hcl 50 Mg Tab PO 50 mg Q6H PRN Administration Moderate Pain (4-6) - Exam General Appearance: awake alert General - other findings: Chronic debility. Heart: RRR, no murmur, no gallops Respiratory: no wheezes, no rales Respiratory - other findings: Reduced air entry bilaterally Gastrointestinal: soft, non-tender, non-distended Extremities: no cyanosis, no clubbing, no edema Neurological - other findings: Speech slightly slurred, Musculoskeletal - other findings: Kyphoscoliotic. Psychiatric: normal affect, A&O x 3 Hosp A/P - Plan This is a 64-year-old female patient with a history of multiple sclerosis with chronic debility. She is status post cystoscopy and ureteral stent placement and lithotripsy which was unfortunately complicated by urosepsis. She is currently being managed on Zosyn and being followed by ID She has a PICC line in place for long-term antibiotics. Arrangement made for halfway facility transfer for long-term antibiotic treatment Urosepsis Currently on Zosyn No growth on blood culture and urine cultures at the moment. Zosyn dose is 4.5 g every 6 will reduce to 3.75 given thrombocytopenia We will monitor improvement. Discussed with ID in a.m. Bilateral pleural effusion Continue diuresis Monitor electrolytes Possible pneumonia Covered on Zosyn Continue monitor Thrombocytopenia Possibly drug-induced Improved with reducing dose of Zosyn Appreciate hematology input. Transaminitis Possibly due to sepsis Improved Continue monitoring Nephrolithiasis Stent placed Urology followingsigned off for now She will follow up afterwards. Multiple sclerosis Continue treatment PT Hypokalemia Resolved Check magnesiumreplace Electrolyte replacement protocol. S/p diverting colostomy The setting of fecal incontinence from primary Suprapubic catheter Setting of urinary continence limits. VT prophylaxisSCDcode Lovenox CODE STATUSFull code We will ask palliative care for discussion of goals of care. Dispositionfor possible discharge tomorrow once stable and ID reevaluate antibiotics. She will follow up with further procedures with urology
[2020-08-05] MEDS: DULoxetine 60 MG CAP PO SCH (20:10)
[2020-08-06] MEDS: Piperacillin/Tazobactam 3.375 GM in Sodium Chloride 0.9% 100 ML IVPB SCH ×4 (00:04→17:05)
--- NOTE | 2020-08-06 07:45 | PRG ---
DATE OF SERVICE: 08/06/2020 SUBJECTIVE: The patient is resting, easily arousable. OBJECTIVE: VITAL SIGNS: Stable. She is afebrile. I's and O's; 2400 in, 2550 out. HEART: Regular rate. LUNGS: Clear. Decreased inspiratory effort. ABDOMEN: Soft. SP tube draining yellow urine. EXTREMITIES: Contracted. No calf tenderness appreciated. LABORATORY DATA: No new labs. IMPRESSION AND PLAN: 1. A 64-year-old female with history of multiple sclerosis, chronic fecal/urinary incontinence. 2. The patient with chronic SP tube status, postop day #8, status post laser lithotripsy of renal calculi, suprapubic tube exchange, bladder stone evacuation. Postop SIRS syndrome, with leukocytosis, bandemia resolved. 3. Thrombocytopenia drug induced, resolved. 4. Pleural effusion, ongoing diuresis. 5. Disposition pending, discussed with oil field caser, disposition has been delayed due to multiple sclerosis medication costly. Hopefully, she could be discharged to appropriate assisted to continue her MS medications and IV antibiotics. follow up with me next with CT, morning of the appointment. Job ID: [id number] [facility]
[2020-08-06] MEDS: Famotidine/PF 20 mg/2ml Vial SLOW IVP SCH (08:20)
[2020-08-06] MEDS: Furosemide 40 MG/4 ML VIAL SLOW IVP SCH (08:20)
[2020-08-06] MEDS: Ferrous Sulfate 325 MG TAB PO SCH (08:21)
[2020-08-06] MEDS: Cholecalciferol 1,000 UNITS (25 MCG) TAB PO SCH (08:21)
[2020-08-06] MEDS: Lisinopril 10 MG TAB PO SCH ×2 (08:21→20:40)
[2020-08-06] MEDS: Calcium Carbonate 600 MG + Vit D TAB PO SCH (08:21)
[2020-08-06] MEDS: Oxybutynin 5 MG TAB PO SCH ×2 (08:22→20:48)
[2020-08-06] MEDS: Metoprolol Tartrate 25 MG TAB PO SCH ×2 (08:22→20:41)
[2020-08-06 12:22] VITALS: BMI 23.6
[2020-08-06] MEDS: traMADol HCl 50 MG TAB PO PRN (13:47)
[2020-08-06 15:38] LABS: Color Tan (.); Mg Ammon Phos 80 % (.); Stone Weight 65 mg (.)
--- NOTE | 2020-08-06 16:01 | PDOC.HOSPP ---
- Subjective Subjective: Assuming care: 64 years old female who has significant past medical histories of multiple sclerosis, complicated with chronic fecal/urine incontinent, bedbound for the past 10 years, who underwent cystoscopy, laser lithotripsy, stent placement, and suprapubic catheter exchange developed encephalopathy, and sepsis postprocedure. Patient was seen examined at bedside. No acute events overnight. Pending placement - Objective Vital Signs & Weight: Vital Signs (12 hours) Temp Pulse Resp BP BP Pulse Ox 08/06/20 08:28 98 08/06/20 08:21 118/75 08/06/20 07:11 97.9 F 69 18 118/75 98 Weight Admit Weight 138 lb 3.2 oz Weight 137 lb 12.623 oz Most Recent Monitor Data Heart Rate from ECG 69 NIBP 134/71 NIBP BP-Mean 92 Respiration from ECG 25 SpO2 96 I&O: 08/05/20 08/06/20 08/07/20 06:59 06:59 06:59 Intake Total 1890 2400 Output Total 3401 2550 Balance -1511 -150 Result Diagrams: 08/05/20 08:57 08/05/20 08:57 Radiology Reviewed by me: Yes EKG Reviewed by me: Yes Hospitalist ROS - Medication Medications: Active Medications Generic Name Dose Route Start Last Admin Trade Name Freq PRN Reason Stop Dose Admin Calcium/Vitamin D 1 tab 08/02/20 08:00 08/06/20 08:21 Calcium Carbonate 600 Mg + Vit D Tab PO 1 tab QAM-WM ANTONIO Administration Cholecalciferol 5,000 units 08/02/20 09:00 08/06/20 08:21 Cholecalciferol 1,000 Units (25 Mcg) Tab PO 5,000 units DAILY ANTONIO Administration Duloxetine HCl 120 mg 07/29/20 21:00 08/05/20 20:10 Duloxetine 60 Mg Cap PO 120 mg HS ANTONIO Administration Famotidine 20 mg 07/31/20 09:00 08/06/20 08:20 Famotidine/Pf 20 Mg/2ml Vial SLOW IVP 20 mg 0900 ANTONIO Administration Ferrous Sulfate 325 mg 08/01/20 09:00 08/06/20 08:21 Ferrous Sulfate 325 Mg Tab PO 325 mg DAILY ANTONIO Administration Furosemide 40 mg 08/04/20 09:00 08/06/20 08:20 Furosemide 40 Mg/4 Ml Vial SLOW IVP 40 mg DAILY ANTONIO Administration Piperacillin Sod/Tazobactam 100 mls @ 200 mls/hr 08/01/20 23:59 08/06/20 12:35 Sod 3.375 gm/ Sodium Chloride IVPB 100 mls Q6HR ANTONIO Administration Lisinopril 10 mg 07/31/20 21:00 08/06/20 08:21 Lisinopril 10 Mg Tab PO 10 mg BID ANTONIO Administration Metoprolol Tartrate 12.5 mg 07/31/20 21:00 08/06/20 08:22 Metoprolol Tartrate 25 Mg Tab PO 12.5 mg BID ANTONIO Administration Oxybutynin Chloride 5 mg 07/31/20 21:00 08/06/20 08:22 Oxybutynin 5 Mg Tab PO 5 mg BID ANTONIO Administration Rizatriptan Benzoate 10 mg 08/01/20 11:23 08/04/20 17:28 Rizatriptan Benzoate 10 Mg Registered Medical Assistant Tab PO 10 mg BID PRN Administration Migraine Headache Senna/Docusate Sodium 2 tab 07/29/20 16:30 08/03/20 08:53 Senokot S 8.6-50 Mg Tab PO 2 tab BID PRN Administration Constipation Tramadol HCl 50 mg 07/30/20 21:00 08/06/20 13:47 Tramadol Hcl 50 Mg Tab PO 50 mg Q6H PRN Administration Moderate Pain (4-6) - Exam General Appearance: NAD Eye: PERRL ENT: normocephalic atraumatic Neck: supple Heart: RRR Respiratory: CTAB, no wheezes Gastrointestinal: soft Extremities: no cyanosis Skin: normal turgor Neurological: hemiplegia Psychiatric: normal affect Hosp A/P - Plan 64 years old female who has significant past medical histories of multiple sclerosis, complicated with chronic fecal/urine incontinent, bedbound for the past 10 years, who underwent cystoscopy, laser lithotripsy, stent placement, and suprapubic catheter exchange developed encephalopathy, and sepsis postprocedure and admitted to ICU Sepsis - suspect d/t recent urologic procedures. Resolved --cultures no growth so far --HD stable --D/w Dr. Jose, cont IV abx Zosyn to Sep 03 --pending placement Bilateral pleural effusion Continue diuresis Monitor electrolytes Possible pneumonia on ct Covered on Zosyn Continue monitor Thrombocytopenia --likely d/t sepsis, resolved Transaminitis Possibly due to sepsis Improved Continue monitoring Nephrolithiasis Stent placed Urology followingsigned off for now She will follow up afterwards. Multiple sclerosis Continue treatment PT Hypokalemia Resolved Check magnesiumreplace Electrolyte replacement protocol. S/p diverting colostomy The setting of fecal incontinence from primary Neurogenic bladder -s/p Suprapubic catheter exchange VT prophylaxisSCDcode Lovenox CODE STATUSFull code We will ask palliative care for discussion of goals of care. Dispositionfor possible discharge tomorrow once stable and ID reevaluate antibi otics. She will follow up with further procedures with urology
--- NOTE | 2020-08-06 19:41 | PRG ---
DATE OF SERVICE: 08/06/2020 SUBJECTIVE: Feeling better. I think she has been readied for transfer to a swing bed where she will continue treatment. There are some issues with her multiple sclerosis medication which is very expensive, makes it difficult to transfer to a skilled place. She is breathing okay. No abdominal pain. OBJECTIVE: VITAL SIGNS: Been afebrile. Nasal cannula O2 at 2 L, saturating at 98%. LUNGS: Symmetric air entry. HEART: S1, S2, regular rate. ABDOMEN: Soft, flat. NEUROLOGIC: Same neurological findings as before with the weakness in extremities. LABORATORY DATA: Her white cell count is down to 6.7, hemoglobin 10.85, platelets 241, creatinine 1.05. The stone was evaluated and it was mostly magnesium, ammonia, phosphate, and carbonate apatite. This is the kind of stones that one sees with infections in catheters. Typically with certain gram-negative rods. ASSESSMENT AND DISCUSSION: Multiple sclerosis, neurogenic bladder, suprapubic catheter complications, nephrolithiasis, and ammonium phosphate stones causing sepsis with obstruction. She had a stent placed and is going to be discharged on IV Zosyn for another few weeks until the final urological procedure is completed, maybe another 3 to 4 weeks. Orders entered for Case Management. Job ID: [id number]
[2020-08-06] MEDS: DULoxetine 60 MG CAP PO SCH (20:49)
[2020-08-07] MEDS: Piperacillin/Tazobactam 3.375 GM in Sodium Chloride 0.9% 100 ML IVPB SCH ×5 (00:30→23:27)
--- NOTE | 2020-08-07 07:37 | PRG ---
DATE OF SERVICE: 08/07/2020 SUBJECTIVE: The patient is alert, no acute distress, states that she is doing well. OBJECTIVE: VITAL SIGNS: Stable. She is afebrile. I's and O's; 1840 in and 1400 out. GENERAL: The patient is in no acute distress. ABDOMEN: Soft, nontender, nondistended. [place] catheter draining clear yellow urine. Minimal sediment. EXTREMITIES: Contracted. No calf tenderness. LABORATORY DATA: No new labs. Labs have been stable over the last few days. IMPRESSION AND PLAN: 1. Ms. Maciel is a pleasant 64-year-old female with history of MS with fecal and urinary incontinence, status post colostomy, chronic SP tube. 2. History of bladder stone, right renal calculi postop day #9, status post laser lithotripsy of renal calculi, suprapubic tube exchange, bladder stone evacuation. 3. Postop SIRS syndrome, resolved. 4. Pleural effusion, ongoing diuresis. 5. Disposition is pending due to her MS medications, due to cost. Has been medically stable to transfer for the last few days. IV Zosyn to continue until September 03 per Infectious Disease. Has followup appointment with me next week with CT prior to arrival. Due to medication issues for her MS, she may end up staying over the weekend. [facility] covering me this weekend for p.r.n. issues. Job ID: [id number] [facility]
[2020-08-07] MEDS: Calcium Carbonate 600 MG + Vit D TAB PO SCH (09:04)
[2020-08-07] MEDS: Furosemide 40 MG/4 ML VIAL SLOW IVP SCH (09:04)
[2020-08-07] MEDS: Lisinopril 10 MG TAB PO SCH ×2 (09:05→21:21)
[2020-08-07] MEDS: Cholecalciferol 1,000 UNITS (25 MCG) TAB PO SCH (09:05)
[2020-08-07] MEDS: Ferrous Sulfate 325 MG TAB PO SCH (09:05)
[2020-08-07] MEDS: Famotidine/PF 20 mg/2ml Vial SLOW IVP SCH (09:05)
[2020-08-07] MEDS: Metoprolol Tartrate 25 MG TAB PO SCH ×2 (09:05→21:22)
[2020-08-07] MEDS: Oxybutynin 5 MG TAB PO SCH ×2 (09:06→21:19)
[2020-08-07 09:46] LABS: Anion Gap 15 mmol/L (10-20); BUN (Urea Nitrogen) 18 mg/dL (9.8-20.1); Calc. Creatinine Clearance 35 mL/min (70-130); Carbon Dioxide 36 mmol/L (23-31); Chloride 94 mmol/L (98-107); Glucose 158 mg/dL (80-115); Magnesium 1.9 mg/dL (1.6-2.6); Sodium 142 mmol/L (136-145)
[2020-08-07] MEDS ORDERED: Potassium Chloride 20 MEQ TAB PO SCH (10:15)
[2020-08-07] MEDS ORDERED: Magnesium 2 GM/50 ML 2 GM in Premix Bag 1 BAG IVPB SCH (11:30)
--- NOTE | 2020-08-07 13:39 | PDOC.HOSPP ---
- Subjective Subjective: Patient was seen and examined. Discussed with spring encaser, waiting for insurance approval for placement, this issue with her MS medication, waiting for insurance approval prior to authorization. Replacing lytes - Objective Vital Signs & Weight: Vital Signs (12 hours) Temp Pulse Resp BP BP Pulse Ox 08/07/20 09:12 96 08/07/20 09:05 128/79 08/07/20 07:24 96.9 F L 90 16 128/79 96 Weight Admit Weight 138 lb 3.2 oz Weight 137 lb 12.623 oz Most Recent Monitor Data Heart Rate from ECG 69 NIBP 134/71 NIBP BP-Mean 92 Respiration from ECG 25 SpO2 96 I&O: 08/06/20 08/07/20 08/08/20 06:59 06:59 06:59 Intake Total 2400 1840 Output Total 2550 1370 Balance -150 470 Result Diagrams: 08/05/20 08:57 08/07/20 08:49 Radiology Reviewed by me: Yes EKG Reviewed by me: Yes Hospitalist ROS - Medication Medications: Active Medications Generic Name Dose Route Start Last Admin Trade Name Freq PRN Reason Stop Dose Admin Calcium/Vitamin D 1 tab 08/02/20 08:00 08/07/20 09:04 Calcium Carbonate 600 Mg + Vit D Tab PO 1 tab QAM-WM ANTONIO Administration Cholecalciferol 5,000 units 08/02/20 09:00 08/07/20 09:05 Cholecalciferol 1,000 Units (25 Mcg) Tab PO 5,000 units DAILY ANTONOI Administration Duloxetine HCl 120 mg 07/29/20 21:00 08/06/20 20:49 Duloxetine 60 Mg Cap PO 120 mg HS ANTONIO Administration Ferrous Sulfate 325 mg 08/01/20 09:00 08/07/20 09:05 Ferrous Sulfate 325 Mg Tab PO 325 mg DAILY ANTONIO Administration Furosemide 40 mg 08/04/20 09:00 08/07/20 09:04 Furosemide 40 Mg/4 Ml Vial SLOW IVP 40 mg DAILY ANTONIO Administration Piperacillin Sod/Tazobactam 100 mls @ 200 mls/hr 08/01/20 23:59 08/07/20 11:56 Sod 3.375 gm/ Sodium Chloride IVPB 100 mls Q6HR ANTONIO Administration Lisinopril 10 mg 07/31/20 21:00 08/07/20 09:05 Lisinopril 10 Mg Tab PO 10 mg BID ANTONIO Administration Metoprolol Tartrate 12.5 mg 07/31/20 21:00 08/07/20 09:05 Metoprolol Tartrate 25 Mg Tab PO 12.5 mg BID ANTONIO Administration Oxybutynin Chloride 5 mg 07/31/20 21:00 08/07/20 09:06 Oxybutynin 5 Mg Tab PO 5 mg BID ANTONIO Administration Rizatriptan Benzoate 10 mg 08/01/20 11:23 08/04/20 17:28 Rizatriptan Benzoate 10 Mg Pipe Stem Aligner Tab PO 10 mg BID PRN Administration Migraine Headache Senna/Docusate Sodium 2 tab 07/29/20 16:30 08/03/20 08:53 Senokot S 8.6-50 Mg Tab PO 2 tab BID PRN Administration Constipation Sodium Chloride 10 ml 07/29/20 17:16 08/07/20 09:08 Flush - Normal Saline 10 Ml Syringe IVF 10 ml PRN PRN Administration Saline Flush Tramadol HCl 50 mg 07/30/20 21:00 08/06/20 13:47 Tramadol Hcl 50 Mg Tab PO 50 mg Q6H PRN Administration Moderate Pain (4-6) - Exam General Appearance: NAD Eye: PERRL ENT: normocephalic atraumatic Neck: supple Heart: RRR, no murmur Respiratory: CTAB Gastrointestinal: soft Extremities: no cyanosis, no clubbing Skin: normal turgor Neurological - other findings: paraplegic Musculoskeletal: normal tone Psychiatric: normal affect, normal behavior, A&O x 3 Hosp A/P - Plan 64 years old female who has significant past medical histories of multiple sclerosis, complicated with chronic fecal/urine incontinent, bedbound for the past 10 years, who underwent cystoscopy, laser lithotripsy, stent placement, and suprapubic catheter exchange developed encephalopathy, and sepsis postprocedure and admitted to ICU Sepsis - suspect d/t recent urologic procedures. Resolved --cultures no growth so far --HD stable --D/w Dr. Jose, cont IV abx Zosyn to Sep 03 --pending ins approval for placement Hypokalemia --repleting, follow AM labs Hypomagnesia --corrected Thrombocytopenia - d/t sepsis --resolved Nephrolithiasis --s/p cysto with lithotripsy and ureteral stent placement --Urology is following. Follow up with Dr. Mchugh on for rpt CT if get discharge before then Neurogenic bladder -s/p Suprapubic catheter exchange Multiple sclerosis --with multiple complications. Bedbound last 10 years --supportive cares Hx diverting colostomy Possible PNA on CT --pt is on IV abx. No respiratory symptoms. DVT prophylaxisSCDcode Lovenox CODE STATUSFull code Dispo: [facility], still awaiting insurance auth.
[2020-08-07] MEDS: DULoxetine 60 MG CAP PO SCH (21:19)
[2020-08-08] MEDS: Senokot S 8.6-50 MG TAB PO PRN ×2 (04:56→17:16)
[2020-08-08] MEDS: Piperacillin/Tazobactam 3.375 GM in Sodium Chloride 0.9% 100 ML IVPB SCH ×4 (05:00→23:14)
[2020-08-08 05:49] LABS: Anion Gap 14 mmol/L (10-20); BUN (Urea Nitrogen) 21 mg/dL (9.8-20.1); Calc. Creatinine Clearance 31 mL/min (70-130); Calcium 10.6 mg/dL (7.8-10.44); Carbon Dioxide 37 mmol/L (23-31); Chloride 94 mmol/L (98-107); Glucose 115 mg/dL (80-115); Magnesium 2.6 mg/dL (1.6-2.6); Potassium 3.5 mmol/L (3.5-5.1); Sodium 141 mmol/L (136-145)
[2020-08-08] MEDS ORDERED: Potassium Chloride 20 MEQ TAB PO SCH ×2 (07:00→09:15)
[2020-08-08] MEDS: Furosemide 40 MG/4 ML VIAL SLOW IVP SCH (08:27)
[2020-08-08] MEDS: Cholecalciferol 1,000 UNITS (25 MCG) TAB PO SCH (08:28)
[2020-08-08] MEDS: Metoprolol Tartrate 25 MG TAB PO SCH ×2 (08:29→20:12)
[2020-08-08] MEDS: Oxybutynin 5 MG TAB PO SCH ×2 (08:29→20:11)
[2020-08-08] MEDS: Calcium Carbonate 600 MG + Vit D TAB PO SCH (08:29)
[2020-08-08] MEDS: Lisinopril 10 MG TAB PO SCH ×2 (08:29→20:11)
[2020-08-08] MEDS: Ferrous Sulfate 325 MG TAB PO SCH (08:29)
[2020-08-08] MEDS ORDERED: Potassium Bicarbonate/Cit Ac 20 MEQ TAB PO SCH (09:00)
--- NOTE | 2020-08-08 11:02 | PDOC.HOSPP ---
- Subjective Encounter Date: 08/08/20 Subjective: The patient's oral intake has not been optimal. She does not have any significant pain today. - Objective Vital Signs & Weight: Vital Signs (12 hours) Temp Pulse Resp BP BP Pulse Ox 08/08/20 08:29 122/77 08/08/20 08:00 94 L 08/08/20 07:19 97.8 F 75 18 122/77 94 L 08/08/20 02:50 95 Weight Admit Weight 138 lb 3.2 oz Weight 137 lb 12.623 oz Most Recent Monitor Data Heart Rate from ECG 69 NIBP 134/71 NIBP BP-Mean 92 Respiration from ECG 25 SpO2 96 I&O: 08/07/20 08/08/20 08/09/20 06:59 06:59 06:59 Intake Total 1840 1620 Output Total 1370 1700 Balance 470 -80 Result Diagrams: 08/05/20 08:57 08/08/20 04:45 Hospitalist ROS - Medication Medications: Active Medications Generic Name Dose Route Start Last Admin Trade Name Enocq PRN Reason Stop Dose Admin Calcium/Vitamin D 1 tab 08/02/20 08:00 08/08/20 08:29 Calcium Carbonate 600 Mg + Vit D Tab PO 1 tab QAM-WM ANTONIO Administration Cholecalciferol 5,000 units 08/02/20 09:00 08/08/20 08:28 Cholecalciferol 1,000 Units (25 Mcg) Tab PO 5,000 units DAILY ANTONIO Administration Duloxetine HCl 120 mg 07/29/20 21:00 08/07/20 21:19 Duloxetine 60 Mg Cap PO 120 mg HS ANTONIO Administration Ferrous Sulfate 325 mg 08/01/20 09:00 08/08/20 08:29 Ferrous Sulfate 325 Mg Tab PO 325 mg DAILY ANTONIO Administration Furosemide 40 mg 08/04/20 09:00 08/08/20 08:27 Furosemide 40 Mg/4 Ml Vial SLOW IVP 40 mg DAILY ANTONIO Administration Piperacillin Sod/Tazobactam 100 mls @ 200 mls/hr 08/01/20 23:59 08/08/20 05:00 Sod 3.375 gm/ Sodium Chloride IVPB 100 mls Q6HR ANTONIO Administration Lisinopril 10 mg 07/31/20 21:00 08/08/20 08:29 Lisinopril 10 Mg Tab PO 10 mg BID ANTONIO Administration Metoprolol Tartrate 12.5 mg 07/31/20 21:00 08/08/20 08:29 Metoprolol Tartrate 25 Mg Tab PO 12.5 mg BID ANTONIO Administration Oxybutynin Chloride 5 mg 07/31/20 21:00 08/08/20 08:29 Oxybutynin 5 Mg Tab PO 5 mg BID ANTONIO Administration Potassium Chloride 40 meq 08/08/20 09:15 08/08/20 09:07 Potassium Chloride 20 Meq Tab PO 08/08/20 11:15 40 meq NOW ANTONIO Administration Rizatriptan Benzoate 10 mg 08/01/20 11:23 08/04/20 17:28 Rizatriptan Benzoate 10 Mg Electrician Helper [employer]house Tab PO 10 mg BID PRN Administration Migraine Headache Senna/Docusate Sodium 2 tab 07/29/20 16:30 08/08/20 04:56 Senokot S 8.6-50 Mg Tab PO 2 tab BID PRN Administration Constipation Sodium Chloride 10 ml 07/29/20 17:16 08/07/20 23:28 Flush - Normal Saline 10 Ml Syringe IVF 10 ml PRN PRN Administration Saline Flush Tramadol HCl 50 mg 07/30/20 21:00 08/06/20 13:47 Tramadol Hcl 50 Mg Tab PO 50 mg Q6H PRN Administration Moderate Pain (4-6) - Exam General Appearance: awake alert ENT: normocephalic atraumatic Neck: supple, no JVD Heart: RRR Respiratory: no tachypnea Gastrointestinal: soft Extremities: no cyanosis, no clubbing Hosp A/P (1) Sepsis Code(s): A41.9 - SEPSIS, UNSPECIFIED ORGANISM Status: Acute (2) SKYLER (acute kidney injury) Code(s): N17.9 - ACUTE KIDNEY FAILURE, UNSPECIFIED Status: Acute (3) Quadriplegia Code(s): G82.50 - QUADRIPLEGIA, UNSPECIFIED Status: Acute (4) Renal calculi Status: Acute (5) Multiple sclerosis Code(s): G35 - MULTIPLE SCLEROSIS Status: Acute (6) Thrombocytopenia Code(s): D69.6 - THROMBOCYTOPENIA, UNSPECIFIED Status: Acute - Plan The patient is a 64-year-old female with history of multiple sclerosis with quadriplegia and neurogenic bladder status post suprapubic catheter. The patien t also has diverting colostomy for chronic incontinence. She was admitted to the hospital for cystoscopy and right retrograde pyelogram and stenting and laser lithotripsy due to multiple stones in the collecting system that were nonobstructing but concerning since they were present in the renal pelvis. Postoperatively the patient remained intubated and developed sepsis requiring ICU admission. Respiratory status improved and she was eventually extubated. She is still on IV Zosyn per ID recommendations until end date of September 03. The patient's hospitalization was complicated by thrombocytopenia which was concerning of HIT. Oncology service consulted and they thought that the thrombocytopenia is likely related to the antibiotics or Pepcid and unlikely due to HIT. Platelet count has actually improved and returned to baseline. Currently we are waiting on disposition. 08/08: The patient's creatinine level appears to be worsening since yesterday. Differential diagnosis include dehydration versus obstruction. Hold Lasix and start NS at 100 cc/h and recheck BMP in the a.m. We will also monitor the patient's urine output.
[2020-08-08] MEDS: Sodium Chloride 0.9% 1,000 ML IV SCH ×2 (11:08→20:16)
[2020-08-08] MEDS: FINGOLIMOD HCL 0.5 MG PO SCH ×4 (12:46→13:19)
[2020-08-08] MEDS: DULoxetine 60 MG CAP PO SCH (20:11)
[2020-08-09] MEDS: Piperacillin/Tazobactam 3.375 GM in Sodium Chloride 0.9% 100 ML IVPB SCH ×4 (05:03→23:05)
[2020-08-09 05:34] LABS: #Eosinphils 0.3 thou/uL (0.0-0.7); #Lymphocytes 1.3 thou/uL (1.20-3.40); #Monocytes 0.7 thou/uL (0.11-0.59); #Neutrophils 4.8 thou/uL (1.40-6.50); %Basophils 0.5 % (0.0-1.0); %Eosinophils 4.7 % (0.0-10.0); %Lymphocytes 17.8 % (21.0-51.0); %Monocytes 9.9 % (0.0-10.0); %Neutrophils 67.2 % (42.0-75.0); Hemoglobin 9.7 g/dL (12.0-16.0); Mean Corpuscular Hemoglobin 27.9 pg (27.0-31.0); Mean Corpuscular Volume 84.4 fL (78.0-98.0); Mean Platelet Volume 8.5 fL (7.4-10.4); Platelet Count 382 thou/uL (130-400); Red Blood Cell (RBC) Count 3.46 mill/uL (4.20-5.40); White Blood Cell (WBC) Count 7.2 thou/uL (4.8-10.8)
[2020-08-09 05:53] LABS: Anion Gap 15 mmol/L (10-20); BUN (Urea Nitrogen) 22 mg/dL (9.8-20.1); Calc. Creatinine Clearance 28 mL/min (70-130); Calcium 10.6 mg/dL (7.8-10.44); Carbon Dioxide 33 mmol/L (23-31); Chloride 99 mmol/L (98-107); Glucose 113 mg/dL (80-115); Potassium 3.8 mmol/L (3.5-5.1); Sodium 143 mmol/L (136-145)
[2020-08-09] MEDS: Cholecalciferol 1,000 UNITS (25 MCG) TAB PO SCH (07:46)
[2020-08-09] MEDS: Sodium Chloride 0.9% 1,000 ML IV SCH ×2 (07:46→17:16)
[2020-08-09] MEDS: Ferrous Sulfate 325 MG TAB PO SCH (07:47)
[2020-08-09] MEDS: Metoprolol Tartrate 25 MG TAB PO SCH ×2 (07:47→20:07)
[2020-08-09] MEDS: Lisinopril 10 MG TAB PO SCH (07:47)
[2020-08-09] MEDS: Oxybutynin 5 MG TAB PO SCH ×2 (07:48→20:07)
[2020-08-09] MEDS: Calcium Carbonate 600 MG + Vit D TAB PO SCH (07:48)
--- NOTE | 2020-08-09 14:25 | PDOC.HOSPP ---
- Subjective Encounter Date: 08/09/20 Subjective: The patient denies any new complaints today. - Objective Vital Signs & Weight: Vital Signs (12 hours) Temp Pulse Resp BP BP Pulse Ox 08/09/20 09:13 96 08/09/20 07:47 145/84 H 08/09/20 07:33 97.6 F 73 16 145/84 H 96 Weight Admit Weight 138 lb 3.2 oz Weight 137 lb 12.623 oz Most Recent Monitor Data Heart Rate from ECG 69 NIBP 134/71 NIBP BP-Mean 92 Respiration from ECG 25 SpO2 96 I&O: 08/08/20 08/09/20 08/10/20 06:59 06:59 06:59 Intake Total 1620 3220 Output Total 1700 3200 Balance -80 20 Result Diagrams: 08/09/20 Unknown 08/09/20 Unknown Hospitalist ROS - Medication Medications: Active Medications Generic Name Dose Route Start Last Admin Trade Name Freq PRN Reason Stop Dose Admin Calcium/Vitamin D 1 tab 08/02/20 08:00 08/09/20 07:48 Calcium Carbonate 600 Mg + Vit D Tab PO 1 tab QAM-WM ANTONIO Administration Cholecalciferol 5,000 units 08/02/20 09:00 08/09/20 07:46 Cholecalciferol 1,000 Units (25 Mcg) Tab PO 5,000 units DAILY ANTONIO Administration Duloxetine HCl 120 mg 07/29/20 21:00 08/08/20 20:11 Duloxetine 60 Mg Cap PO 120 mg HS ANTONIO Administration Ferrous Sulfate 325 mg 08/01/20 09:00 08/09/20 07:47 Ferrous Sulfate 325 Mg Tab PO 325 mg DAILY ANTONIO Administration Furosemide 40 mg 08/04/20 09:00 08/08/20 08:27 Furosemide 40 Mg/4 Ml Vial SLOW IVP 40 mg DAILY ANTONIO Administration Piperacillin Sod/Tazobactam 100 mls @ 200 mls/hr 08/01/20 23:59 08/09/20 11:02 Sod 3.375 gm/ Sodium Chloride IVPB 100 mls Q6HR ANTONIO Administration Sodium Chloride 1,000 mls @ 100 mls/hr 08/08/20 11:00 08/09/20 07:46 Normal Saline 0.9% IV 1,000 mls .Q10H ANTONIO Administration Metoprolol Tartrate 12.5 mg 07/31/20 21:00 08/09/20 07:47 Metoprolol Tartrate 25 Mg Tab PO 12.5 mg BID ANTONIO Administration Oxybutynin Chloride 5 mg 07/31/20 21:00 08/09/20 07:48 Oxybutynin 5 Mg Tab PO 5 mg BID ANTONIO Administration Rizatriptan Benzoate 10 mg 08/01/20 11:23 08/04/20 17:28 Rizatriptan Benzoate 10 Mg Teacher Advisor Tab PO 10 mg BID PRN Administration Migraine Headache Senna/Docusate Sodium 2 tab 07/29/20 16:30 08/08/20 17:16 Senokot S 8.6-50 Mg Tab PO 2 tab BID PRN Administration Constipation Sodium Chloride 10 ml 07/29/20 17:16 08/07/20 23:28 Flush - Normal Saline 10 Ml Syringe IVF 10 ml PRN PRN Administration Saline Flush Tramadol HCl 50 mg 07/30/20 21:00 08/06/20 13:47 Tramadol Hcl 50 Mg Tab PO 50 mg Q6H PRN Administration Moderate Pain (4-6) - Exam General Appearance: awake alert ENT: normocephalic atraumatic Neck: supple, no JVD Heart: RRR Respiratory: normal chest expansion, no tachypnea Gastrointestinal: soft Hosp A/P (1) Sepsis Code(s): A41.9 - SEPSIS, UNSPECIFIED ORGANISM Status: Acute (2) SKYLER (acute kidney injury) Code(s): N17.9 - ACUTE KIDNEY FAILURE, UNSPECIFIED Status: Acute (3) Quadriplegia Code(s): G82.50 - QUADRIPLEGIA, UNSPECIFIED Status: Acute (4) Renal calculi Status: Acute (5) Multiple sclerosis Code(s): G35 - MULTIPLE SCLEROSIS Status: Acute (6) Thrombocytopenia Code(s): D69.6 - THROMBOCYTOPENIA, UNSPECIFIED Status: Acute - Plan The patient is a 64-year-old female with history of multiple sclerosis with quadriplegia and neurogenic bladder status post suprapubic catheter. The patient also has diverting colostomy for chronic incontinence. She was admitted to the hospital for cystoscopy and right retrograde pyelogram and stenting and laser lithotripsy due to multiple stones in the collecting system that were nonobstructing but concerning since they were present in the renal pelvis. Postoperatively the patient remained intubated and developed sepsis requiring ICU admission. Respiratory status improved and she was eventually extubated. She is still on IV Zosyn per ID recommendations until end date of September 03. The patient's hospitalization was complicated by thrombocytopenia which was concerning of HIT. Oncology service consulted and they thought that the thrombocytopenia is likely related to the antibiotics or Pepcid and unlikely due to HIT. Platelet count has actually improved and returned to baseline. Currently we are waiting on disposition. 08/08: The patient's creatinine level appears to be worsening since yesterday. Differential diagnosis include dehydration versus obstruction. Hold Lasix and start NS at 100 cc/h and recheck BMP in the a.m. We will also monitor the patient's urine output. 08/09: The patient's creatinine level continues to worsen. I will discontinue lisinopril and continue to hold Lasix. Continue IV fluids. Her creatinine level will plateau at some point before trending down.
[2020-08-09] MEDS: DULoxetine 60 MG CAP PO SCH (20:07)
[2020-08-10] MEDS: Sodium Chloride 0.9% 1,000 ML IV SCH ×3 (04:11→21:46)
[2020-08-10] MEDS: Piperacillin/Tazobactam 3.375 GM in Sodium Chloride 0.9% 100 ML IVPB SCH ×4 (05:06→23:35)
[2020-08-10 06:08] LABS: Anion Gap 15 mmol/L (10-20); BUN (Urea Nitrogen) 21 mg/dL (9.8-20.1); Calc. Creatinine Clearance 30 mL/min (70-130); Calcium 9.3 mg/dL (7.8-10.44); Carbon Dioxide 27 mmol/L (23-31); Chloride 106 mmol/L (98-107); Glucose 93 mg/dL (80-115); Potassium 3.7 mmol/L (3.5-5.1); Sodium 144 mmol/L (136-145)
--- NOTE | 2020-08-10 08:08 | PRG ---
DATE OF SERVICE: 08/10/2020 SUBJECTIVE: The patient without complaints, doing well, no acute events over the weekend. Chart reviewed. OBJECTIVE: VITAL SIGNS: Stable. She is afebrile. I's and O's, 3470 in and 3050 out. Oral intake 1 L, IV fluids 2400 in. GENERAL: The patient is in no acute distress. LUNGS: Decreased inspiratory effort, however, sounds clear. ABDOMEN: Soft. No rigidity. No rebound. Suprapubic tube site is clean, dry, and intact. EXTREMITIES: No cyanosis, edema, baseline contracture. LABORATORY DATA: Pertinent Labs: White count 7, hemoglobin 9.7, platelets 382. Renal function with creatinine of 1.5, this morning is 1.7, baseline creatinine around 1.0. IMPRESSION AND PLAN: A 64-year-old female with history of: 1. Multiple sclerosis, with chronic fecal and urinary incontinence, colostomy, suprapubic tube dependent. 2. History of bladder stone, right renal calculi, status post right ureteroscopy, laser lithotripsy, suprapubic tube exchange, bladder stone evacuation. 3. Postoperative systemic inflammatory response syndrome, resolved. 4. History of pleural effusion, has been on IV Lasix for the last few days. 5. Disposition pending due to MS medications, IV Zosyn to continue until September 03. 6. Renal insufficiency, l due to diuresis. Recommend rechecking a chest x-ray, she has adequate oral intake, if chest x-ray demonstrates no significant pleural effusion, recommend gentle hydration, she is sustaining adequate oral intake, consider discontinuing IV fluids if her renal function remains stable. Disposition pending per Case Management. Job ID: [id number] [facility]
--- NOTE | 2020-08-10 08:58 | RAD ---
XR Chest Pa Lat STANDARD HISTORY: Pleural effusion COMPARISON: 08/16/2020 FINDINGS: Right upper extremity PICC line remains in place. The heart size is stable. Small bilateral pleural effusions are seen. No lobar consolidation or pneumothoraces are identified. IMPRESSION: Small pleural effusions.
[2020-08-10] MEDS: Cholecalciferol 1,000 UNITS (25 MCG) TAB PO SCH (09:06)
[2020-08-10] MEDS: Oxybutynin 5 MG TAB PO SCH ×2 (09:07→21:47)
[2020-08-10] MEDS: Metoprolol Tartrate 25 MG TAB PO SCH ×2 (09:07→21:46)
[2020-08-10] MEDS: Ferrous Sulfate 325 MG TAB PO SCH (09:07)
[2020-08-10] MEDS: Calcium Carbonate 600 MG + Vit D TAB PO SCH (09:07)
[2020-08-10 09:59] LABS: #Eosinphils 0.2 thou/uL (0.0-0.7); #Monocytes 0.5 thou/uL (0.11-0.59); #Neutrophils 3.5 thou/uL (1.40-6.50); %Basophils 0.8 % (0.0-1.0); %Eosinophils 3.3 % (0.0-10.0); %Lymphocytes 19.8 % (21.0-51.0); %Monocytes 9.3 % (0.0-10.0); %Neutrophils 66.9 % (42.0-75.0); Hemoglobin 9.3 g/dL (12.0-16.0); Mean Corpuscular HGB CONC 32.2 g/dL (32.0-36.0); Mean Corpuscular Hemoglobin 27.5 pg (27.0-31.0); Mean Corpuscular Volume 85.3 fL (78.0-98.0); Mean Platelet Volume 8.3 fL (7.4-10.4); Platelet Count 394 thou/uL (130-400); RBC Distribution Width 13.7 % (11.5-14.5); Red Blood Cell (RBC) Count 3.36 mill/uL (4.20-5.40); White Blood Cell (WBC) Count 5.2 thou/uL (4.8-10.8)
[2020-08-10] MEDS ORDERED: Acetaminophen 325 MG TAB PO PRN (13:10)
--- NOTE | 2020-08-10 18:53 | PDOC.HOSPP ---
- Subjective Encounter Date: 08/10/20 Subjective: No new complaints. - Objective Vital Signs & Weight: Vital Signs (12 hours) Temp Pulse Resp BP Pulse Ox 08/10/20 08:00 97 08/10/20 07:40 97.6 F 64 20 143/83 H 97 Weight Admit Weight 138 lb 3.2 oz Weight 137 lb 12.623 oz Most Recent Monitor Data Heart Rate from ECG 69 NIBP 134/71 NIBP BP-Mean 92 Respiration from ECG 25 SpO2 96 I&O: 08/09/20 08/10/20 08/11/20 06:59 06:59 06:59 Intake Total 3220 3470 1400 Output Total 3200 3050 1050 Balance 20 420 350 Result Diagrams: 08/10/20 09:37 08/10/20 05:10 Hospitalist ROS - Medication Medications: Active Medications Generic Name Dose Route Start Last Admin Trade Name Freq PRN Reason Stop Dose Admin Acetaminophen 650 mg 08/10/20 13:10 08/10/20 14:33 Acetaminophen 325 Mg Tab PO 650 mg Q6H PRN Administration Headache/Fever or Pain Calcium/Vitamin D 1 tab 08/02/20 08:00 08/10/20 09:07 Calcium Carbonate 600 Mg + Vit D Tab PO 1 tab QAM-WM ANTONIO Administration Cholecalciferol 5,000 units 08/02/20 09:00 08/10/20 09:06 Cholecalciferol 1,000 Units (25 Mcg) Tab PO 5,000 units DAILY ANTONIO Administration Duloxetine HCl 120 mg 07/29/20 21:00 08/09/20 20:07 Duloxetine 60 Mg Cap PO 120 mg HS ANTONIO Administration Ferrous Sulfate 325 mg 08/01/20 09:00 08/10/20 09:07 Ferrous Sulfate 325 Mg Tab PO 325 mg DAILY ANTONIO Administration Furosemide 40 mg 08/04/20 09:00 08/08/20 08:27 Furosemide 40 Mg/4 Ml Vial SLOW IVP 40 mg DAILY ANTONIO Administration Piperacillin Sod/Tazobactam 100 mls @ 200 mls/hr 08/01/20 23:59 08/10/20 17:28 Sod 3.375 gm/ Sodium Chloride IVPB 100 mls Q6HR ANTONIO Administration Sodium Chloride 1,000 mls @ 75 mls/hr 08/10/20 09:22 08/10/20 11:54 Normal Saline 0.9% IV Not Given .[id number] ANTONIO Metoprolol Tartrate 12.5 mg 07/31/20 21:00 08/10/20 09:07 Metoprolol Tartrate 25 Mg Tab PO 12.5 mg BID ANTONIO Administration Oxybutynin Chloride 5 mg 07/31/20 21:00 08/10/20 09:07 Oxybutynin 5 Mg Tab PO 5 mg BID ANTONIO Administration Rizatriptan Benzoate 10 mg 08/01/20 11:23 08/04/20 17:28 Rizatriptan Benzoate 10 Mg Infection Control Practitioner Tab PO 10 mg BID PRN Administration Migraine Headache Senna/Docusate Sodium 2 tab 07/29/20 16:30 08/08/20 17:16 Senokot S 8.6-50 Mg Tab PO 2 tab BID PRN Administration Constipation Sodium Chloride 10 ml 07/29/20 17:16 08/07/20 23:28 Flush - Normal Saline 10 Ml Syringe IVF 10 ml PRN PRN Administration Saline Flush - Exam General Appearance: awake alert ENT: normocephalic atraumatic Neck: supple, no JVD Heart: RRR Respiratory: normal chest expansion, no tachypnea Neurological: cranial nerve grossly intact, no focal deficits Hosp A/P (1) Sepsis Code(s): A41.9 - SEPSIS, UNSPECIFIED ORGANISM Status: Acute (2) SKYLER (acute kidney injury) Code(s): N17.9 - ACUTE KIDNEY FAILURE, UNSPECIFIED Status: Acute (3) Quadriplegia Code(s): G82.50 - QUADRIPLEGIA, UNSPECIFIED Status: Acute (4) Renal calculi Status: Acute (5) Multiple sclerosis Code(s): G35 - MULTIPLE SCLEROSIS Status: Acute (6) Thrombocytopenia Code(s): D69.6 - THROMBOCYTOPENIA, UNSPECIFIED Status: Acute - Plan The patient is a 64-year-old female with history of multiple sclerosis with quadriplegia and neurogenic bladder status post suprapubic catheter. The patient also has diverting colostomy for chronic incontinence. She was admitted to the hospital for cystoscopy and right retrograde pyelogram and stenting and laser lithotripsy due to multiple stones in the collecting system that were nonobstructing but concerning since they were present in the renal pelvis. Postoperatively the patient remained intubated and developed sepsis requiring ICU admission. Respiratory status improved and she was eventually extubated. She is still on IV Zosyn per ID recommendations until end date of September 03. The patient's hospitalization was complicated by thrombocytopenia which was concerning of HIT. Oncology service consulted and they thought that the thrombocytopenia is likely related to the antibiotics or Pepcid and unlikely due to HIT. Platelet count has actually improved and returned to baseline. Currently we are waiting on disposition. 08/08: The patient's creatinine level appears to be worsening since yesterday. Differential diagnosis include dehydration versus obstruction. Hold Lasix and start NS at 100 cc/h and recheck BMP in the a.m. We will also monitor the patient's urine output. 08/09: The patient's creatinine level continues to worsen. I will discontinue lisinopril and continue to hold Lasix. Continue IV fluids. Her creatinine level will plateau at some point before trending down. 08/10: The patient's creatinine level is improving. Continue current IV hydration. Pending placement.
[2020-08-10] MEDS: DULoxetine 60 MG CAP PO SCH (21:46)
[2020-08-11] MEDS: Piperacillin/Tazobactam 3.375 GM in Sodium Chloride 0.9% 100 ML IVPB SCH ×2 (06:07→11:38)
[2020-08-11 07:29] LABS: #Basophils 0.1 thou/uL (0.0-0.2); #Eosinphils 0.2 thou/uL (0.0-0.7); #Lymphocytes 1.1 thou/uL (1.20-3.40); #Monocytes 0.5 thou/uL (0.11-0.59); #Neutrophils 3.8 thou/uL (1.40-6.50); %Eosinophils 3.2 % (0.0-10.0); %Neutrophils 67.8 % (42.0-75.0); Hemoglobin 9.1 g/dL (12.0-16.0); Mean Corpuscular HGB CONC 33.1 g/dL (32.0-36.0); Mean Corpuscular Hemoglobin 28.4 pg (27.0-31.0); Mean Corpuscular Volume 85.7 fL (78.0-98.0); Mean Platelet Volume 7.8 fL (7.4-10.4); Platelet Count 370 thou/uL (130-400); RBC Distribution Width 13.7 % (11.5-14.5); Red Blood Cell (RBC) Count 3.21 mill/uL (4.20-5.40); White Blood Cell (WBC) Count 5.7 thou/uL (4.8-10.8)
[2020-08-11 07:49] LABS: Anion Gap 13 mmol/L (10-20); BUN (Urea Nitrogen) 17 mg/dL (9.8-20.1); Calc. Creatinine Clearance 32 mL/min (70-130); Calcium 9.1 mg/dL (7.8-10.44); Carbon Dioxide 26 mmol/L (23-31); Chloride 108 mmol/L (98-107); Glucose 100 mg/dL (80-115); Potassium 3.5 mmol/L (3.5-5.1); Sodium 143 mmol/L (136-145)
[2020-08-11 07:59] VITALS: TEMP 97.7
[2020-08-11] MEDS: Ferrous Sulfate 325 MG TAB PO SCH (08:00)
[2020-08-11] MEDS: Cholecalciferol 1,000 UNITS (25 MCG) TAB PO SCH (08:00)
[2020-08-11] MEDS: Metoprolol Tartrate 25 MG TAB PO SCH (08:01)
[2020-08-11] MEDS: Oxybutynin 5 MG TAB PO SCH (08:01)
[2020-08-11] MEDS: Calcium Carbonate 600 MG + Vit D TAB PO SCH (08:01)
--- NOTE | 2020-08-11 08:02 | PRG ---
DATE OF SERVICE: 08/11/2020 SUBJECTIVE: Has mild reflux symptoms. Denies fever, chills, flank pain, or rigors. OBJECTIVE: VITAL SIGNS: Stable. She is afebrile. I's and O's, 1400 in and 1050 out. GENERAL: The patient is in no acute distress. Alert and awake. HEART: Regular rate. LUNGS: Clear. ABDOMEN: Soft, nontender, and nondistended. Suprapubic tube demonstrating clear dilute urine. EXTREMITIES: Contracted. No calf tenderness. Chest x-ray, which I reviewed myself demonstrates resolution of pleural effusion. No new labs this morning. A.m. labs yet to be drawn. IMPRESSION AND PLAN: 1. Ms. Maciel is a 64-year-old female with history of multiple sclerosis, colostomy, suprapubic tube dependent. 2. History of bladder calculi, right renal calculi, status post right ureteroscopy, laser lithotripsy, suprapubic tube exchange, bladder stone evacuation. 3. Postoperative systemic inflammatory response syndrome, resolved. 4. History of pleural effusion, has been on IV Lasix for the last few days, on hold, as well as AILYN inhibitors due to renal insufficiency, likely prerenal. Await a.m. labs. 5. Disposition pending due to MS medications. Job ID: [id number] [facility]
[2020-08-11] MEDS ORDERED: Potassium Chloride 20 MEQ TAB PO SCH (08:15)
--- NOTE | 2020-08-11 09:54 | PDOC.DS.DS ---
Provider - Provider Date of Admission: 07/29/20 16:51 Date of Discharge: 08/11/20 Admitting Provider: Julia Ware DO Primary Care Physician: Darien Thorpe MD Course - Hospital Course Hospital Course: The patient is a 64-year-old female with history of multiple sclerosis with quadriplegia and neurogenic bladder status post suprapubic catheter. The patient also has diverting colostomy for chronic incontinence. She was admitted to the hospital for cystoscopy and right retrograde pyelogram and stenting and laser lithotripsy due to multiple stones in the collecting system that were nonobstructing but concerning since they were present in the renal pelvis. P ostoperatively the patient remained intubated and developed sepsis requiring ICU admission. Respiratory status improved and she was eventually extubated. She is still on IV Zosyn per ID recommendations until end date of September 03. The patient's hospitalization was complicated by thrombocytopenia which was concerning of HIT. Oncology service consulted and they thought that the thrombocytopenia is likely related to the antibiotics or Pepcid and unlikely due to HIT. Platelet count has actually improved and returned to baseline. The patient's creatinine level worsened due to overdiuresis. Diuretics were held and the patient was managed with IV fluids and withholding lisinopril which led to improvement in her kidney injury. Resuscitation Status: 08/04/20 15:59 Resuscitation Status Routine Co-Sign Provider: Resuscitation Status: DNAR: NO Resuscitation Discussed with: Patient - Labs Lab Results: 08/11/20 07:00 08/11/20 03:30 Abnormal Lab Results - Last 48 hrs 08/10/20 05:10: BUN 21 H, Creatinine 1.87 H 08/10/20 09:37: RBC 3.36 L, Hgb 9.3 L, Hct 28.7 L, Lymphocytes % 19.8 L, Lymphocytes # 1.0 L 08/11/20 03:30: Chloride 108 H, Creatinine 1.74 H 08/11/20 07:00: RBC 3.21 L, Hgb 9.1 L, Hct 27.6 L, Lymphocytes % 19.0 L, Lymphocytes # 1.1 L Microbiology - Entire Visit 07/29/20 16:59 Venous blood - Right Arm Blood Culture - Final NO GROWTH IN 5 DAYS 07/29/20 16:59 Venous blood - Left Hand Blood Culture - Final NO GROWTH IN 5 DAYS 07/29/20 18:10 Urine Suprapubic catheter Urine Culture - Final NO GROWTH AT 48 HOURS - Physical Exam Vitals: Vital Signs (12 hours) Temp Pulse Resp BP Pulse Ox 08/11/20 07:58 97.7 F 66 12 162/84 H 96 Weight Admit Weight 138 lb 3.2 oz Weight 137 lb 12.623 oz Most Recent Monitor Data Heart Rate from ECG 69 NIBP 134/71 NIBP BP-Mean 92 Respiration from ECG 25 SpO2 96 Physical Exam: The patient was seen and examined on the day of discharge. Problem - Problem (1) Sepsis Code(s): A41.9 - SEPSIS, UNSPECIFIED ORGANISM Status: Acute (2) SKYLER (acute kidney injury) Code(s): N17.9 - ACUTE KIDNEY FAILURE, UNSPECIFIED Status: Acute (3) Quadriplegia Code(s): G82.50 - QUADRIPLEGIA, UNSPECIFIED Status: Acute (4) Renal calculi Status: Acute (5) Multiple sclerosis Code(s): G35 - MULTIPLE SCLEROSIS Status: Acute (6) Thrombocytopenia Code(s): D69.6 - THROMBOCYTOPENIA, UNSPECIFIED Status: Acute Plan - Discharge Medications Home Medications: Medication Instructions Recorded Confirmed Type Cholecalciferol (Vitamin D3) 5,000 unit PO DAILY 03/05/20 07/28/20 History [Vitamin D] DULoxetine [Cymbalta] 120 mg PO HS 03/05/20 07/28/20 History Iron 18 mg PO DAILY 03/05/20 07/28/20 History Ondansetron [Zofran ODT] 4 mg PO Q6HR PRN 03/05/20 07/28/20 History Rizatriptan Benzoate [Rizatriptan] 10 mg PO BID PRN MDD 20 03/05/20 07/28/20 History Calcium Carbonate + Vit D 1 tab PO QAM-WM tab 03/11/20 07/28/20 Rx [Caltrate 600 + Vit D] Oxybutynin [Ditropan] 5 mg PO BID 30 Days #60 tab 03/19/20 07/28/20 Rx hydrOXYzine HCl [Hydroxyzine HCl] 25 mg PO PRN PRN 05/26/20 07/28/20 History traMADol HCl [Ultram] 50 mg PO Q6H PRN #25 tab 05/29/20 07/28/20 Rx Docusate Sodium [Stool Softener] 100 mg PO HS 07/28/20 07/28/20 History Polyethylene Glycol 3350 [Miralax] 17 gm PO HS 07/28/20 07/28/20 History Evolocumab [Repatha Sureclick] 140 mg SQ Q21D #0 08/11/20 07/28/20 Rx Fingolimod HCl [Gilenya] 0.5 mg PO HS #0 08/11/20 07/28/20 Rx Piperacillin/Tazobactam [Zosyn] 3.375 gm IVPB Q6HR vial 08/11/20 Rx Allergies: ceftriaxone [From Rocephin] Allergy (Verified 07/28/20 09:59) Swells lips clindamycin Allergy (Verified 07/28/20 09:59) Itchy [id number] Reductase Inhibitor Allergy (Verified 07/28/20 09:59) pain in legs - Follow up Plan Referrals: Darien Thorpe MD [Primary Care Provider] - Julia Ware DO [Active] - 08/13/20 11:00 am (need CT 08/13 @9am) Disposition: HOME Quality - Care Measures CORE MEASURES:: N/A
[2020-08-11 11:11] VITALS: BP 163/84
== END 2020-08-11 13:58 | DRG 856 ==
LOC: SDC 09:09 → CCU 16:51 → IMCU/EMU 07-30 12:44 → T4-B 07-31 18:08
PROVIDERS: ADMIT Urology; ATTEND Internal Medicine
PROC: 0T768DZ Dilation of Right Ureter with Intraluminal Device, Via Natural or Artificial Opening Endoscopic (ICD-10-PCS; principal; 2020-07-29)
PROC: 0TC08ZZ Extirpation of Matter from Right Kidney, Via Natural or Artificial Opening Endoscopic (ICD-10-PCS; 2020-07-29)
PROC: BT1DZZZ Fluoroscopy of Right Kidney, Ureter and Bladder (ICD-10-PCS; 2020-07-29)
PROC: 0TCB8ZZ Extirpation of Matter from Bladder, Via Natural or Artificial Opening Endoscopic (ICD-10-PCS; 2020-07-29)
PROC: 0T2BX0Z Change Drainage Device in Bladder, External Approach (ICD-10-PCS; 2020-07-29)
PROC: 5A09357 Assistance with Respiratory Ventilation, Less than 24 Consecutive Hours, Continuous Positive Airway Pressure (ICD-10-PCS; 2020-07-29)
PROC: 02HV33Z Insertion of Infusion Device into Superior Vena Cava, Percutaneous Approach (ICD-10-PCS; 2020-07-31)
PROC: B518ZZA Fluoroscopy of Superior Vena Cava, Guidance (ICD-10-PCS; 2020-07-31)
PROC: B548ZZA Ultrasonography of Superior Vena Cava, Guidance (ICD-10-PCS; 2020-07-31)
DX: T81.44XA Sepsis following a procedure, initial encounter (principal); A41.9 Sepsis, unspecified organism; J96.01 Acute respiratory failure with hypoxia; G93.41 Metabolic encephalopathy; G82.50 Quadriplegia, unspecified; Z66 Do not resuscitate; Z51.5 Encounter for palliative care; Z20.828 Contact with and (suspected) exposure to other viral communicable diseases; E87.2 Acidosis; N17.9 Acute kidney failure, unspecified; J90 Pleural effusion, not elsewhere classified; N21.0 Calculus in bladder; F32.9 Major depressive disorder, single episode, unspecified; N31.9 Neuromuscular dysfunction of bladder, unspecified; G35 Multiple sclerosis; N20.0 Calculus of kidney; E87.6 Hypokalemia; R74.01 Elevation of levels of liver transaminase levels; D69.59 Other secondary thrombocytopenia; T36.8X5A Adverse effect of other systemic antibiotics, initial encounter; R15.9 Full incontinence of feces; Z87.442 Personal history of urinary calculi; Z88.1 Allergy status to other antibiotic agents; Z88.8 Allergy status to other drugs, medicaments and biological substances; Z93.3 Colostomy status; Z90.49 Acquired absence of other specified parts of digestive tract; Z90.710 Acquired absence of both cervix and uterus; Z90.722 Acquired absence of ovaries, bilateral; Z98.84 Bariatric surgery status; Z94.9 Transplanted organ and tissue status, unspecified; Z87.440 Personal history of urinary (tract) infections; Z99.3 Dependence on wheelchair; Z74.01 Bed confinement status
CPT/HCPCS: 36415; 36569; 36600; 71045; 71046; 71275; 74018; 74176; 74420; 80048; 80053; 82365; 82805; 83735; 83880; 85025; 85379; 87040; 87086; 88300; 93306; 94640; C1751; J1100; J1644; J1650; J1720; J1940; J2185; J2405; J2543; J2704; J3010; J3370; J3475; J3490; J7050; J7620; Q9967; S0028

== ENCOUNTER 2020-08-13 09:29 | Outpatient (CLI) | payer MEDICARE ==
--- NOTE | 2020-08-13 11:16 | CT ---
CT ABDOMEN AND PELVIS WITHOUT IV CONTRAST: INDICATION: Renal stone/calculi. Followup lithotripsy. COMPARISON: Comparison is made to recent CT abdomen and pelvis of 08/03/2020. FINDINGS: Images through the lung bases show small residual left effusion. The right effusion noted previously is no longer present and the left effusion is slightly smaller. There is mild left basilar atelecta sis which is also improved in appearance from prior exam. Liver, spleen, and pancreas unremarkable and unchanged. Stomach and duodenum unremarkable. There ar e at least 3 radiopaque tablets in the stomach body which are consistent with ingested radiopaque tab lets. Adrenal glands normal. Review of kidneys show bilateral renal cystic lesions which are stable. The right double pigtail ure teral stent remains in place and appears in adequate position. There are calcifications seen along the wall of a large right renal cyst which are stable and may be calcifications associated with this cyst rather than free calculi. These are stable. There are small calcifications seen posterior to the upper pigtail in the upper right renal collectin g structures which have a similar appearance to the recent study. No definite calcification is seen along the course of the right ureteral stent. There continues o be mild stranding around the proximal right ureter which is unchanged from the rece nt exam. The left kidney and left collecting structures remain unremarkable. Suprapubic catheter remains in place and the bladder is contracted. Small and large bowel loops unremarkable. The colostomy is again noted. The free fluid described in the deep pelvis on the prior exam has resolved. IMPRESSION: 1. Small residual left pleural effusion. The bilateral effusions noted previously have significantl y improved. 2. Right ureteral stent remain in place. There continues to be mild stranding around the proximal r ight ureter which is stable. Small calcifications in the right kidney appear unchanged. Bilateral r enal cystic lesions are stable. 3. Free fluid noted previously has resolved. POS: AGW
== END 2020-08-13 09:30 | disposition home or self-care (01) ==
LOC: CT 09:29
PROVIDERS: ATTEND Urology
DX: N20.0 Calculus of kidney (principal); J90 Pleural effusion, not elsewhere classified; N28.89 Other specified disorders of kidney and ureter
CPT/HCPCS: 74176

== ENCOUNTER 2021-05-06 12:30 | Outpatient (CLI) | payer MEDICARE | END 2021-05-06 12:31 | disposition home or self-care (01) | LOC: BICULT 12:30 | PROVIDERS: ATTEND Urology | DX: N20.0 Calculus of kidney (principal); N28.1 Cyst of kidney, acquired; N28.89 Other specified disorders of kidney and ureter; R93.5 Abnormal findings on diagnostic imaging of other abdominal regions, including retroperitoneum | CPT/HCPCS: 36415; 74018; 76770; 80048; 83970; 84550 ==

== ENCOUNTER 2021-05-11 16:28 | Outpatient (CLI) | payer MEDICARE ==
[2020-07-24 11:22] LABS: Anion Gap 18 mmol/L (10-20); BUN (Urea Nitrogen) 23 mg/dL (9.8-20.1); Calc. Creatinine Clearance 0 mL/min (70-130); Calcium 9.5 mg/dL (7.8-10.44); Carbon Dioxide 23 mmol/L (23-31); Chloride 106 mmol/L (98-107); Glucose 105 mg/dL (80-115); Potassium 4.2 mmol/L (3.5-5.1); Sodium 143 mmol/L (136-145)
[2020-07-24 11:23] LABS: Hemoglobin 12.1 g/dL (12.0-16.0); Mean Corpuscular HGB CONC 30.8 G/DL (32.0-36.0); Mean Corpuscular Hemoglobin 27.2 PG (27.0-33.0); Mean Corpuscular Volume 88.3 fl (80.0-100.0); Mean Platelet Volume 10.5 fl (7.4-10.4); Platelet Count 395 10x3/uL (130-400); RBC Distribution Width 14.2 % (11.5-14.5); Red Blood Cell (RBC) Count 4.45 10x6/uL (3.90-5.20); White Blood Cell (WBC) Count 5.4 10x3/uL (4.5-11.0)
[2020-07-24 11:26] LABS: PTT 27.9 sec (22.0-33.0); Prothrombin Time 10.3 sec (9.5-12.1)
[2020-07-25 11:00] LABS: SARS-CoV-2 MS2 Positive; SARS-CoV-2 N Gene Negative; SARS-CoV-2 S Gene Negative; SARS-CoV-2 by NAA Not Detected (NotDetected); SARS-CoV-2 orf1ab Negative
[2021-05-11 17:48] LABS: Hemoglobin 13.1 g/dL (12.0-15.5); Mean Corpuscular HGB CONC 33.9 g/dL (32.0-36.0); Mean Corpuscular Hemoglobin 28.6 pg (27.0-33.0); Mean Corpuscular Volume 84.3 fl (81.6-98.3); Mean Platelet Volume 9.5 fl (7.4-10.4); Platelet Count 426 10x3/uL (150-450); RBC Distribution Width 13.4 % (11.5-14.5); Red Blood Cell (RBC) Count 4.58 10x6/uL (3.90-5.03); White Blood Cell (WBC) Count 9.6 10x3/uL (3.5-10.5)
[2021-05-11 17:53] LABS: Anion Gap 19 mmol/L (10-20); BUN (Urea Nitrogen) 29 mg/dL (9.8-20.1); Calc. Creatinine Clearance 0 mL/min (70-130); Calcium 9.9 mg/dL (7.8-10.44); Carbon Dioxide 22 mmol/L (23-31); Chloride 104 mmol/L (98-107); Glucose 112 mg/dL (80-115); Potassium 3.9 mmol/L (3.5-5.1); Sodium 141 mmol/L (136-145)
[2021-05-11 18:14] LABS: INR-International Normal Ratio 0.9; PTT 25.4 sec (22.0-33.0); Prothrombin Time 10.3 sec (9.5-12.1)
[2021-05-11 19:44] LABS: SARS-CoV-2 NAA Rapid Test Not Detected (NotDetected)
== END 2021-05-11 16:29 | disposition home or self-care (01) ==
LOC: LABBT 16:28
PROVIDERS: ATTEND Urology
DX: Z01.818 Encounter for other preprocedural examination (principal); G35 Multiple sclerosis; Z43.5 Encounter for attention to cystostomy; R82.71 Bacteriuria; N28.1 Cyst of kidney, acquired; N28.89 Other specified disorders of kidney and ureter; N21.0 Calculus in bladder; N31.9 Neuromuscular dysfunction of bladder, unspecified; N39.41 Urge incontinence; N20.0 Calculus of kidney
CPT/HCPCS: 80048 ×2; 85027 ×2; 85610 ×2; 85730 ×2; 87086; 93005 ×2; U0002; U0003; 93010

== ENCOUNTER 2021-05-12 09:09 | Day surgery (SDC) | payer MEDICARE ==
[2021-05-12] MEDS ORDERED: Vancomycin 1 GM/200 ML BAG ONE (10:01)
[2021-05-12] MEDS ORDERED: Piperacillin/Tazobactam 3.375 GM VIAL ONE (10:01)
[2021-05-12] MEDS ORDERED: Sodium Chloride 0.9% 100 ML ONE (10:01)
[2021-05-12] MEDS ORDERED: Iothalamate Meglumine 60% 50 ML VIAL FS ONE (10:09)
[2021-05-12] MEDS ORDERED: Famotidine/PF 20 mg/2ml Vial ONE (10:17)
[2021-05-12] MEDS ORDERED: Fentanyl 100 MCG/2 ML VIAL ONE (10:17)
[2021-05-12] MEDS ORDERED: Ondansetron PF 4 MG/2 ML Vial ONE (10:39)
[2021-05-12] MEDS ORDERED: ePHEDrine 50 MG/ML VIAL ONE (10:39)
[2021-05-12] MEDS ORDERED: Metoclopramide HCl 10 MG/2 ML VIAL ONE (10:39)
[2021-05-12] MEDS ORDERED: Lidocaine 1% PF 5 ML VIAL ONE (10:39)
[2021-05-12] MEDS ORDERED: Dexamethasone 20 MG/5 ML VIAL ONE (10:39)
[2021-05-12] MEDS ORDERED: PHENYLEPHRINE-NS 100 MCG/ML 10 ML SYRINGE ONE (10:39)
[2021-05-12] MEDS ORDERED: PROPOFOL 200 MG/20 ML VIAL ONE (10:39)
[2021-05-12] MEDS ORDERED: Phenazopyridine HCl 100 MG TAB ONE (11:44)
== END 2021-05-12 13:22 | disposition home or self-care (01) ==
LOC: SDC 09:09
PROVIDERS: ATTEND Urology
PROC: 0TCB8ZZ Extirpation of Matter from Bladder, Via Natural or Artificial Opening Endoscopic (ICD-10-PCS; principal; 2021-05-12)
PROC: 0T788DZ Dilation of Bilateral Ureters with Intraluminal Device, Via Natural or Artificial Opening Endoscopic (ICD-10-PCS; 2021-05-12)
PROC: 0T2BX0Z Change Drainage Device in Bladder, External Approach (ICD-10-PCS; 2021-05-12)
DX: N13.2 Hydronephrosis with renal and ureteral calculous obstruction (principal); N21.0 Calculus in bladder; R82.71 Bacteriuria; G35 Multiple sclerosis; N31.8 Other neuromuscular dysfunction of bladder; N28.1 Cyst of kidney, acquired; N39.41 Urge incontinence; E79.0 Hyperuricemia without signs of inflammatory arthritis and tophaceous disease; Z79.899 Other long term (current) drug therapy; Z88.1 Allergy status to other antibiotic agents; Z88.8 Allergy status to other drugs, medicaments and biological substances; Z93.3 Colostomy status
CPT/HCPCS: 51705; 52332; 74018; 76000; 82365; Q9961; 88300; C2617; J1100; J2405; J2543; J2704; J2765; J3010; J3370; J3490; S0028